=== PATIENT | female | born 1980 | race Caucasian/White ===

== ENCOUNTER 2018-07-09 21:06 | Emergency (ER) | payer MEDICAID ==
--- NOTE | 2018-07-09 21:37 | EDM.PDOC ---
ED [facility] GENERAL MEDICAL PROBLEM - General Chief Complaint: Skin Complaint Stated Complaint: RASH ALL OVER Time Seen by Provider: 07/09/18 21:32 Source of Information: Reports: Patient History Limitations: Reports: No Limitations - History of Present Illness INITIAL COMMENTS - FREE TEXT/NARRATIVE: This 37 yo female patient reports to the ED with a "rash all over". The patient reports her symptoms started 2 days ago. The patient reports she has been using Benadryl Cream, but her symptoms have not gotten any better. The patient showed a small red spot on her left wrist, right upper chest, left upper chest, and right foot. The area on her right upper chest had excoriation zacarias over the area. The patient denies any changes in body soap, shampoo, laundry soap, dryer sheets or lotions. Duration: Day(s): (2), Constant, Getting Worse Location: Reports: Other (listed in HPI narative ) Quality: Reports: Other Severity: Mild Improves with: Reports: None Worsens with: Reports: None Associated Symptoms: Reports: No Other Symptoms Generalized Pain Score (Numeric/FACES): 9 - Related Data Allergies Allergy/AdvReac Type Severity Reaction Status Date / Time acetaminophen [From [place]] Allergy Hives Verified 07/09/18 21:14 hydrocodone [From [place]] Allergy Hives Verified 07/09/18 21:14 Penicillins Allergy Hives Verified 07/09/18 21:14 ranitidine Allergy Hives Verified 07/09/18 21:14 ibuprofen Allergy Hives Uncoded 07/09/18 21:14 metformin Allergy Hives Uncoded 07/09/18 21:14 Past Medical History Cardiovascular History: Reports: High Cholesterol, Hypertension Musculoskeletal History: Reports: Other (See Below) Other Musculoskeletal History: Tendonitis Neurological History: Reports: Migraines Psychiatric History: Reports: Bipolar, PTSD Endocrine/Metabolic History: Reports: Diabetes, Type II - Past Surgical History GI Surgical History: Reports: Appendectomy Female Surgical History: Reports: Tubal Ligation Musculoskeletal Surgical History: Reports: Carpal Tunnel Other Musculoskeletal Surgeries/Procedures:: bilateral carpal tunnel Social & Family History - Family History Family Medical History: Noncontributory - Tobacco Use Smoking Status *Q: Never Smoker - Caffeine Use Caffeine Use: Reports: Coffee, Soda, Tea - Recreational Drug Use Recreational Drug Use: No ED ROS GENERAL - Review of Systems Review Of Systems: ROS reveals no pertinent complaints other than HPI. ED EXAM, SKIN/RASH Exam: See Below Exam Limited By: No Limitations General Appearance: Alert, WD/WN, Mild Distress, Obese Eye Exam: Bilateral Eye: EOMI, Normal Inspection, PERRL Ears: Normal External Exam, Normal Canal, Hearing Grossly Normal, Normal TMs Nose: Normal Inspection, Normal Mucosa, No Blood Throat/Mouth: Normal Inspection, Normal Lips, Normal Teeth, Normal Gums, Normal Oropharynx, Normal Voice, No Airway Compromise Head: Atraumatic, Normocephalic Neck: Normal Inspection, Supple, Non-Tender, Full Range of Motion Respiratory/Chest: No Respiratory Distress, Lungs Clear, Normal Breath Sounds, No Accessory Muscle Use, Chest Non-Tender Cardiovascular: Normal Peripheral Pulses, Regular Rate, Rhythm, No Edema, No Gallop, No JVD, No Murmur, No Rub GI/Abdominal: Normal Bowel Sounds, Soft, Non-Tender, No Organomegaly, No Distention, No Abnormal Bruit, No Mass, Other (obese) (Female) Exam: Deferred Rectal (Female) Exam: Deferred Back Exam: Normal Inspection, Full Range of Motion, NT Extremities: Normal Inspection, Normal Range of Motion, Non-Tender, No Pedal Edema, Normal Capillary Refill Neurological: Alert, Oriented, CN II-XII Intact, Normal Cognition, Normal Gait, Normal Reflexes, No Motor/Sensory Deficits Psychiatric: Normal Affect, Normal Mood Skin: Erythema (small erythematous areas with excoriations to the right upper chest) Location, Skin: Chest, Upper Extremity, Left, Lower Extremity, Right, Lower Extremity, Left Characteristics: Erythematous Associated features: No: Warmth, Tenderness, Swelling, Induration, Scaling, Lymphangitis, Crusting, Weeping, Rough Lymphatic: No Adenopathy Course - Vital Signs Last Recorded V/S: Last Vital Signs Temp 35.6 C 07/09/18 21:08 Pulse 106 H 07/09/18 21:08 Resp 18 07/09/18 21:08 BP 140/99 H 07/09/18 21:08 Pulse Ox 98 07/09/18 21:08 Departure - Departure Time of Disposition: 21:37 Disposition: Home, Self-Care 01 Condition: Fair Clinical Impression: Contact dermatitis Qualifiers: Contact dermatitis type: unspecified Contact dermatitis trigger: unspecified trigger Qualified Code(s): L25.9 - Unspecified contact dermatitis, unspecified cause - Discharge Information *PRESCRIPTION DRUG MONITORING PROGRAM REVIEWED*: Not Applicable *COPY OF PRESCRIPTION DRUG MONITORING REPORT IN PATIENT JUSTIN: Not Applicable Instructions: Contact Dermatitis, Krij-ed-[id number] Care Plan Goals: The patient was advised of the examination results during the visit. The patient was advised to take Benadryl (25 mg) every 6 hours over the next 48 hours. The patient was encouraged to apply Aquaphor Ointment to the areas and avoid scratching the areas. If the patient has any additional symptoms or concerns, the patient should visit her primary care facility for continued evaluation and treatment.
== END 2018-07-09 21:44 | disposition home or self-care (01) ==
LOC: DL.ED 21:06
DX: L25.9 Unspecified contact dermatitis, unspecified cause (principal); E11.9 Type 2 diabetes mellitus without complications; I10 Essential (primary) hypertension; Z88.0 Allergy status to penicillin; Z88.5 Allergy status to narcotic agent; Z88.8 Allergy status to other drugs, medicaments and biological substances; Z88.6 Allergy status to analgesic agent
CPT/HCPCS: 99282

== ENCOUNTER 2018-07-16 20:27 | Emergency (ER) | payer MEDICAID ==
[2018-07-16] MEDS ORDERED: Azithromycin 250 MG Tab PO ONE (20:49)
--- NOTE | 2018-07-16 20:50 | EDM.PDOC ---
ED HPI GENERAL MEDICAL PROBLEM - General Chief Complaint: Skin Complaint Stated Complaint: BED BUG BITES ? [id number] Time Seen by Provider: 07/16/18 20:50 Source of Information: Reports: Patient History Limitations: Reports: No Limitations - History of Present Illness INITIAL COMMENTS - FREE TEXT/NARRATIVE: started lat week was last week for this, was taking benadryl 4 times daily but to twice and itching worse now and looks infected. - Related Data Allergies Allergy/AdvReac Type Severity Reaction Status Date / Time acetaminophen [From [place]] Allergy Hives Verified 07/16/18 20:52 hydrocodone [From [place]] Allergy Hives Verified 07/16/18 20:52 Penicillins Allergy Hives Verified 07/16/18 20:52 ranitidine Allergy Hives Verified 07/16/18 20:52 ibuprofen Allergy Hives Uncoded 07/09/18 21:14 metformin Allergy Hives Uncoded 07/09/18 21:14 Past Medical History Cardiovascular History: Reports: High Cholesterol, Hypertension Musculoskeletal History: Reports: Other (See Below) Other Musculoskeletal History: Tendonitis Neurological History: Reports: Migraines Psychiatric History: Reports: Bipolar, PTSD Endocrine/Metabolic History: Reports: Diabetes, Type II - Past Surgical History GI Surgical History: Reports: Appendectomy Female Surgical History: Reports: Tubal Ligation Musculoskeletal Surgical History: Reports: Carpal Tunnel Other Musculoskeletal Surgeries/Procedures:: bilateral carpal tunnel Social & Family History - Family History Family Medical History: Noncontributory - Caffeine Use Caffeine Use: Reports: Coffee, Soda, Tea ED ROS GENERAL - Review of Systems Review Of Systems: ROS reveals no pertinent complaints other than HPI. ED EXAM, SKIN/RASH Exam: See Below Exam Limited By: No Limitations General Appearance: Alert, WD/WN, Mild Distress, Other (itch) Ears: Hearing Grossly Normal Throat/Mouth: Normal Voice, No Airway Compromise Head: Atraumatic Neck: Non-Tender, Full Range of Motion Respiratory/Chest: No Respiratory Distress Cardiovascular: Regular Rate, Rhythm GI/Abdominal: Soft, Non-Tender Neurological: Alert, Oriented, Normal Cognition, Normal Gait, No Motor/Sensory Deficits Psychiatric: Anxious Skin: Rash Location, Skin: Generalized Characteristics: Macular Associated features: Swelling, Inflammation Lymphatic: No Adenopathy Course - Vital Signs Last Recorded V/S: Last Vital Signs Temp 36.8 C 07/16/18 20:48 Pulse 113 H 07/16/18 20:48 Resp 20 07/16/18 20:48 BP 171/94 H 07/16/18 20:48 Pulse Ox 98 07/16/18 20:48 - Orders/Labs/Meds Meds: Medications Discontinued Medications Generic Name Dose Route Start Last Admin Trade Name [place] PRN Reason Stop Dose Admin Azithromycin 500 mg 07/16/18 20:49 07/16/18 21:00 Zithromax PO 07/16/18 20:50 500 mg ONETIME ONE Administration Departure - Departure Time of Disposition: 21:06 Disposition: Home, Self-Care 01 Condition: Good Clinical Impression: Bug bite Qualifiers: Encounter type: initial encounter Qualified Code(s): W57.XXXA - Bitten or stung by nonvenomous insect and other nonvenomous arthropods, initial encounter - Discharge Information Instructions: Bedbugs, [id number] Forms: ED Department Discharge Additional Instructions: 1) take benadryl 25mg 4 times daily for itch 2) don't scratch too much 3) follow up at clinic rx given; z-la nena
== END 2018-07-16 21:10 | disposition home or self-care (01) ==
LOC: DL.ED 20:27
DX: T14.8XXA Other injury of unspecified body region, initial encounter (principal); E78.00 Pure hypercholesterolemia, unspecified; I10 Essential (primary) hypertension; E11.9 Type 2 diabetes mellitus without complications; Z88.0 Allergy status to penicillin; W57.XXXA Bitten or stung by nonvenomous insect and other nonvenomous arthropods, initial encounter; Z88.5 Allergy status to narcotic agent; Z88.1 Allergy status to other antibiotic agents; Z88.8 Allergy status to other drugs, medicaments and biological substances
CPT/HCPCS: 99282; A9270

== ENCOUNTER 2018-07-23 23:07 | Emergency (ER) | payer MEDICAID ==
--- NOTE | 2018-07-23 23:38 | EDM.PDOC ---
ED HPI GENERAL MEDICAL PROBLEM - General Chief Complaint: Genitourinary Problem Stated Complaint: YEAST INFECTIONS,UTI?[id number] Time Seen by Provider: 07/23/18 23:36 Source of Information: Reports: Patient History Limitations: Reports: No Limitations - History of Present Illness INITIAL COMMENTS - FREE TEXT/NARRATIVE: 4 days h/o burning urination worse tonight can't sleep. h/o UTI. no discharge just burning. Vaginal Pain Score (Numeric/FACES): 10 - Related Data Allergies Allergy/AdvReac Type Severity Reaction Status Date / Time acetaminophen [From [place]] Allergy Hives Verified 07/23/18 23:34 hydrocodone [From [place]] Allergy Hives Verified 07/23/18 23:34 Penicillins Allergy Hives Verified 07/23/18 23:34 ranitidine Allergy Hives Verified 07/23/18 23:34 ibuprofen Allergy Hives Uncoded 07/23/18 23:34 metformin Allergy Hives Uncoded 07/23/18 23:34 Past Medical History HEENT History: Reports: None Cardiovascular History: Reports: High Cholesterol, Hypertension Respiratory History: Reports: None Gastrointestinal History: Reports: None Genitourinary History: Reports: None [employer] History: Reports: None Musculoskeletal History: Reports: Other (See Below) Other Musculoskeletal History: Tendonitis Neurological History: Reports: Migraines Psychiatric History: Reports: Bipolar, PTSD Endocrine/Metabolic History: Reports: Diabetes, Type II Hematologic History: Reports: None Immunologic History: Reports: None Oncologic (Cancer) History: Reports: None Dermatologic History: Reports: None - Infectious Disease History Infectious Disease History: Reports: None - Past Surgical History Head Surgeries/Procedures: Reports: None GI Surgical History: Reports: Appendectomy Female Surgical History: Reports: Tubal Ligation Musculoskeletal Surgical History: Reports: Carpal Tunnel Other Musculoskeletal Surgeries/Procedures:: bilateral carpal tunnel Social & Family History - Family History Family Medical History: Noncontributory - Caffeine Use Caffeine Use: Reports: Coffee, Soda, Tea ED ROS GENERAL - Review of Systems Review Of Systems: ROS reveals no pertinent complaints other than HPI. ED EXAM, RENAL/ - Physical Exam Exam: See Below Exam Limited By: No Limitations General Appearance: Alert, WD/WN, Mild Distress, Other (discomfort) Ears: Hearing Grossly Normal Throat/Mouth: Normal Voice, No Airway Compromise Head: Atraumatic Neck: Non-Tender, Full Range of Motion Respiratory/Chest: No Respiratory Distress Cardiovascular: Regular Rate, Rhythm GI/Abdominal: Soft, Non-Tender Neurological: Alert, Oriented, Normal Cognition, Normal Gait, No Motor/Sensory Deficits Psychiatric: Tearful Skin Exam: Warm, Dry, Normal Color Lymphatic: No Adenopathy Course - Vital Signs Last Recorded V/S: Last Vital Signs Temp 36.7 C 07/23/18 23:35 Pulse 108 H 07/23/18 23:35 Resp 22 H 07/23/18 23:35 BP 128/60 07/23/18 23:35 Pulse Ox 95 07/23/18 23:35 - Orders/Labs/Meds Labs: Laboratory Tests 07/23/18 Range/Units 23:33 Urine Color Yellow (YELLOW) Urine Appearance Slightly cloudy (CLEAR) Urine pH 6.0 (5.0-9.0) Ur Specific [place] >= 1.030 (1.005-1.030) Urine Protein 30 H (NEGATIVE) Urine Glucose (UA) >=1000 H (NEGATIVE) Urine Ketones 15 H (NEGATIVE) Urine Occult Blood Trace-intact H (NEGATIVE) Urine Nitrite Negative (NEGATIVE) Urine Bilirubin Negative (NEGATIVE) Urine Urobilinogen 1.0 (0.2-1.0) mg/dL Ur Leukocyte Esterase Negative (NEGATIVE) Urine RBC 0-5 /HPF Urine WBC 5-10 H (0-5/HPF) /HPF Ur Epithelial Cells Moderate H /HPF Urine Bacteria Moderate H (0-FEW/HPF) /HPF Meds: Medications Discontinued Medications Generic Name Dose Route Start Last Admin Trade Name Freq PRN Reason Stop Dose Admin Nitrofurantoin Macrocrystals 100 mg 07/23/18 23:55 Macrobid PO 07/23/18 23:56 ONETIME ONE Phenazopyridine HCl 95 mg 07/23/18 23:55 Urinary Pain Relief PO 07/23/18 23:56 ONETIME ONE - Re-Assessments/Exams Free Text/Narrative Re-Assessment/Exam: 07/23/18 23:57 results discussed with pt. Departure - Departure Time of Disposition: 23:57 Disposition: Home, Self-Care 01 Condition: Good Clinical Impression: UTI, Urinary tract infectious disease - Discharge Information Instructions: Urinary Tract Infection, Adult, [id number] Forms: ED Department Discharge Additional Instructions: 1) drink lots of liquids 2) follow up at clinic rx given; macrobid 100mg bid x 20 pyridium 100mg tid prn x 12
[2018-07-23] MEDS ORDERED: Phenazopyridine 95 MG Tab PO ONE (23:55)
[2018-07-23] MEDS ORDERED: Nitrofurantoin Monohydrate/Macrocrystalline 100 MG Cap PO ONE (23:55)
== END 2018-07-24 | disposition home or self-care (01) ==
LOC: DL.ED 23:07
DX: N39.0 Urinary tract infection, site not specified (principal); I10 Essential (primary) hypertension; E11.9 Type 2 diabetes mellitus without complications; Z88.8 Allergy status to other drugs, medicaments and biological substances; Z88.0 Allergy status to penicillin
CPT/HCPCS: 81001; 99283; A9270

== ENCOUNTER 2018-11-27 23:39 | Emergency (ER) | payer MEDICAID ==
[2018-11-28 00:29] LABS: ANION GAP 11.8; CHLORIDE,CL 102 mmol/L (101-111); SODIUM,NA 138 mmol/L (135-145)
[2018-11-28] MEDS ORDERED: Ondansetron 4 MG Tab.DIS PO ONE (00:42)
--- NOTE | 2018-11-28 00:46 | EDM.PDOC ---
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 feels sick and not well. Abdominal Pain Score (Numeric/FACES): 9 - Related Data Allergies Allergy/AdvReac Type Severity Reaction Status Date / Time acetaminophen [From [place]] Allergy Hives Verified 11/28/18 00:01 hydrocodone [From [place]] Allergy Hives Verified 11/28/18 00:01 ibuprofen Allergy Rash Verified 11/28/18 00:01 Penicillins Allergy Hives Verified 11/28/18 00:01 ranitidine Allergy Hives Verified 11/28/18 00:01 Sulfa (Sulfonamide Allergy Rash Verified 11/28/18 00:01 Antibiotics) metformin Allergy Hives Uncoded 11/28/18 00:01 Home Meds: Home Meds Insulin Aspart [NovoLOG] See Protocol SUBCUT TIDMEALS 10/30/18 [History] Insulin Glarg,Human.Rec.Analog [Lantus] 65 unit SUBCUT BEDTIME 10/30/18 [History ] Albuterol Sulfate 2.5 mg IH 11/28/18 [History] Albuterol [Proventil HFA] 11/28/18 [History] Cetirizine [ZyrTEC] 11/28/18 [History] Cyanocobalamin (Vitamin B-12) [Vitamin B-12] 1,000 mcg PO 11/28/18 [History] Desmopressin 0.2 mg PO 11/28/18 [History] Diclofenac Sodium [Voltaren 1% Gel] 11/28/18 [History] Doxylamine Succinate [Sleep Aid] 25 mg PO 11/28/18 [History] EPINEPHrine [Epipen] 0.3 mg IM ASDIRECTED PRN 11/28/18 [History] Fluticasone Propion/Salmeterol [Fluticasone-Salmeterol 250-50] 1 each IH [History] Fluticasone Propionate [Flonase] 16 gm .XX 11/28/18 [History] Lisinopril 40 mg PO DAILY 11/28/18 [History] Loratadine [Claritin] 10 mg PO 11/28/18 [History] Melatonin 5 mg PO 11/28/18 [History] Meloxicam 7.5 mg PO 11/28/18 [History] Multivit &Minerals/Ferrous Fum [Complete Multivit-Mineral Liq] 9 mg PO 11/28/18 [History] Omeprazole 20 mg PO 11/28/18 [History] Ondansetron [Zofran ODT] 4 mg PO 11/28/18 [History] Orphenadrine [Norflex] 100 mg PO BID PRN 11/28/18 [History] Prazosin HCl [Prazosin] 2 mg PO 11/28/18 [History] QUEtiapine [SEROquel] 50 mg PO 11/28/18 [History] QUEtiapine [SEROquel] 100 mg PO 11/28/18 [History] SUMAtriptan [Imitrex] 50 mg PO 11/28/18 [History] Sennosides/Docusate Sodium [Senna Plus Tablet] 1 each PO 11/28/18 [History] Solifenacin Succinate [Vesicare] 10 mg PO 11/28/18 [History] Topiramate 50 mg PO 11/28/18 [History] Urojet 2% Jelly 11/28/18 [History] Vitamin D3 80074 Units Capsule 11/28/18 [History] amLODIPine Besylate [Amlodipine Besylate] 10 mg PO 11/28/18 [History] atorvaSTATin [Lipitor] 11/28/18 [History] hydrOXYzine HCl [Hydroxyzine HCl] 25 mg PO 11/28/18 [History] Past Medical History HEENT History: Reports: None Cardiovascular History: Reports: High Cholesterol, Hypertension Respiratory History: Reports: None Gastrointestinal History: Reports: None Genitourinary History: Reports: None, UTI, Recurrent [employer]ILRO[employer]ER History: Reports: None Musculoskeletal History: Reports: Other (See Below) Other Musculoskeletal History: Tendonitis Neurological History: Reports: Migraines Psychiatric History: Reports: Anxiety, Bipolar, Depression, PTSD Other Psychiatric History: pt unable to remember medications Endocrine/Metabolic History: Reports: Diabetes, Type II, Obesity/BMI 30+ Hematologic History: Reports: None Immunologic History: Reports: None Oncologic (Cancer) History: Reports: None Dermatologic History: Reports: None - Infectious Disease History Infectious Disease History: Reports: None - Past Surgical History Head Surgeries/Procedures: Reports: None GI Surgical History: Reports: Appendectomy Neurological Surgical History: Reports: None Musculoskeletal Surgical History: Reports: Carpal Tunnel Other Musculoskeletal Surgeries/Procedures:: bilateral carpal tunnel Social & Family History - Family History Family Medical History: Noncontributory - Tobacco Use Smoking Status *Q: Unknown Ever Smoked - Caffeine Use Caffeine Use: Reports: Tea - Recreational Drug Use Recreational Drug Use: No ED ROS GENERAL - Review of Systems Review Of Systems: ROS reveals no pertinent complaints other than HPI. ED EXAM, GI/ABD - Physical Exam Exam: See Below Exam Limited By: No Limitations General Appearance: Alert, WD/WN, No Apparent Distress, Anxious. No: Active Emesis Ears: Hearing Grossly Normal Throat/Mouth: Normal Voice, No Airway Compromise Head: Atraumatic Neck: Non-Tender, Full Range of Motion Respiratory/Chest: No Respiratory Distress Cardiovascular: Regular Rate, Rhythm GI/Abdominal Exam: Soft, Non-Tender. No: Distended, Guarding, Rigid, Rebound, Tender Neurological: Alert, Oriented, Normal Cognition, Normal Gait, No Motor/Sensory Deficits Psychiatric: Flat Affect Skin Exam: Warm, Dry, Normal Color Lymphatic: No Adenopathy Course - Vital Signs Last Recorded V/S: Last Vital Signs Temp 36.4 C 11/27/18 23:57 Pulse 98 11/27/18 23:57 Resp 20 11/27/18 23:57 BP 149/104 H 11/27/18 23:57 Pulse Ox 97 11/27/18 23:57 - Orders/Labs/Meds Orders: Active Orders 24 hr Category Date Time Status Ondansetron [Zofran ODT] Med 11/28/18 00:42 Once 4 mg PO ONETIME ONE Labs: Laboratory Tests 11/27/18 11/27/18 Range/Units 23:58 23:58 WBC 10.2 H (5.0-10.0) 10^3/uL RBC 4.70 (4.2-5.4) 10^6/uL Hgb 13.4 (12.0-16.0) g/dL Hct 40.2 (37.0-47.0) % MCV 85.5 (80-100) fL MCH 28.5 (27.0-34.0) pg MCHC 33.3 (33.0-35.0) g/dL Plt Count 289 (150-450) 10^3/uL Neut % (Auto) 52.8 (42.2-75.2) % Lymph % (Auto) 37.4 (20.5-50.1) % [place] % (Auto) 6.9 (2-8) % Eos % (Auto) 2.4 (1.0-3.0) % Baso % (Auto) 0.5 (0.0-1.0) % Sodium 138 (135-145) mmol/L Potassium 3.8 (3.6-5.0) mmol/L Chloride 102 (101-111) mmol/L Carbon Dioxide 28.0 (21.0-31.0) mmol/L Anion Gap 11.8 BUN 15 (7-18) mg/dL Creatinine 0.7 (0.6-1.3) mg/dL Est Cr Clr Drug Dosing 83.84 mL/min Estimated GFR (MDRD) > 60 BUN/Creatinine Ratio 21.42 Glucose 230 H (74-105) mg/dL Calcium 8.8 (8.4-10.2) mg/dl Total Bilirubin 0.6 (0.2-1.0) mg/dL AST 33 (10-42) IU/L ALT 44 (10-60) IU/L Alkaline Phosphatase 57 (42-121) IU/L Total Protein 6.7 (6.7-8.2) g/dl Albumin 3.5 (3.2-5.5) g/dl Globulin 3.2 Albumin/Globulin Ratio 1.09 Amylase 30 (28-100) U/L Lipase 25 (22-51) U/L Ethyl Alcohol < 5 mg/dL - Re-Assessments/Exams Free Text/Narrative Re-Assessment/Exam: 11/28/18 00:44 results discussed with pt who is txting and without distress. Departure - Departure Time of Disposition: 00:44 Disposition: Home, Self-Care 01 Condition: Good Clinical Impression: Vomiting - Discharge Information Instructions: Nausea and Vomiting, Adult, [id number] Additional Instructions: 1) remain on liquid diet next 48 hours 2) follow up at clinic - My Orders Last 24 Hours: My Active Orders 11/28/18 00:42 Ondansetron [Zofran ODT] 4 mg PO ONETIME ONE - Assessment/Plan Last 24 Hours: My Active Orders 11/28/18 00:42 Ondansetron [Zofran ODT] 4 mg PO ONETIME ONE
== END 2018-11-28 00:56 | disposition home or self-care (01) ==
LOC: DL.ED 23:39
DX: R11.2 Nausea with vomiting, unspecified (principal); Z88.0 Allergy status to penicillin; Z88.2 Allergy status to sulfonamides; Z88.8 Allergy status to other drugs, medicaments and biological substances; Z88.5 Allergy status to narcotic agent; Z79.4 Long term (current) use of insulin; Z90.49 Acquired absence of other specified parts of digestive tract
CPT/HCPCS: 36415; 80053; 82150; 83690; 85025; 99284; A9270; G0480

== ENCOUNTER 2019-04-05 01:35 | Emergency (ER) | payer MEDICAID ==
[2019-04-05] MEDS ORDERED: Mupirocin Oint 22 GM Tube TOP ONE (01:36)
--- NOTE | 2019-04-05 01:42 | EDM.PDOC ---
ED HPI GENERAL MEDICAL PROBLEM - General Stated Complaint: PROBLEM WITH BREAST Time Seen by Provider: 04/05/19 01:39 Source of Information: Reports: Patient History Limitations: Reports: No Limitations - History of Present Illness INITIAL COMMENTS - FREE TEXT/NARRATIVE: ED with c/o sores all over breast for past 3 weeks, seen at clinic and given "cream, Does not know what it is but not helping. Has run out of " cream to use. 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 C/O pain but describes more itching sensation to area. no fever or chills. Right Breast Pain Score (Numeric/FACES): 9 - Related Data Allergies Allergy/AdvReac Type Severity Reaction Status Date / Time acetaminophen [From [place]] Allergy Hives Verified 04/05/19 01:40 escitalopram [From Lexapro] Allergy Rash Verified 04/05/19 01:40 fluoxetine [From Prozac] Allergy Rash Verified 04/05/19 01:40 hydrocodone [From [place]] Allergy Hives Verified 04/05/19 01:40 ibuprofen Allergy Rash Verified 04/05/19 01:40 Penicillins Allergy Hives Verified 04/05/19 01:40 ranitidine Allergy Hives Verified 04/05/19 01:40 Sulfa (Sulfonamide Allergy Rash Verified 04/05/19 01:40 Antibiotics) zolpidem [From Ambien] AdvReac Nausea and Verified 04/05/19 01:40 Vomiting BEE STING Allergy Anaphylactic Uncoded 04/05/19 01:40 Shock metformin Allergy Hives Uncoded 04/05/19 01:40 Home Meds: Home Meds Insulin Aspart [NovoLOG] See Protocol SUBCUT TIDMEALS 10/30/18 [History] Insulin Glarg,Human.Rec.Analog [Lantus] 68 unit SUBCUT BEDTIME 10/30/18 [History ] Albuterol Sulfate 2.5 mg IH Q4H PRN 11/28/18 [History] Albuterol [Proventil HFA] 2 puff INH Q4H PRN 11/28/18 [History] Cetirizine [ZyrTEC] 10 mg PO DAILY 11/28/18 [History] Cyanocobalamin (Vitamin B-12) [Vitamin B-12] 1,000 mcg PO .WEEKLY 11/28/18 [ History] EPINEPHrine [Epipen] 0.3 mg IM ASDIRECTED PRN 11/28/18 [History] Fluticasone Propion/Salmeterol [Fluticasone-Salmeterol 250-50] 1 each IH DAILY 11/28/18 [History] Fluticasone Propionate [Flonase] 1 - 2 spray NASBOTH ASDIRECTED 11/28/18 [ History] Lisinopril 40 mg PO DAILY 11/28/18 [History] Omeprazole 20 mg PO DAILY 11/28/18 [History] Ondansetron [Zofran ODT] 4 mg PO Q8H PRN 11/28/18 [History] Orphenadrine [Norflex] 100 mg PO BID PRN 11/28/18 [History] Prazosin HCl [Prazosin] 2 mg PO BEDTIME 11/28/18 [History] QUEtiapine [SEROquel] 50 mg PO DAILY 11/28/18 [History] QUEtiapine [SEROquel] 150 mg PO BEDTIME 11/28/18 [History] Sennosides/Docusate Sodium [Senna Plus Tablet] 1 each PO DAILY 11/28/18 [History ] Solifenacin Succinate [Vesicare] 10 mg PO DAILY 11/28/18 [History] Topiramate 50 mg PO BID 11/28/18 [History] Vitamin D3 97833 Units Capsule 50,000 units PO DAILY 11/28/18 [History] amLODIPine Besylate [Amlodipine Besylate] 10 mg PO DAILY 11/28/18 [History] atorvaSTATin [Lipitor] 10 mg PO DAILY 11/28/18 [History] Multivitamin with Minerals [Multivitamins with Minerals] 1 tab PO DAILY [History] Cranberry Fruit [Cranberry] 500 mg PO BID 12/07/18 [History] Insulin Aspart [NovoLOG] 0 unit SQ ASDIRECTED 01/18/19 [History] Insulin Glarg,Human.Rec.Analog [Lantus] 68 unit SUBCUT ASDIRECTED 01/18/19 [ History] Prazosin [Minpress] 0 mg PO ASDIRECTED 01/18/19 [History] QUEtiapine [SEROquel] 0 mg PO ASDIRECTED 01/18/19 [History] Topiramate [Topamax] 50 mg PO BID 01/18/19 [History] lisinopriL [Lisinopril] 0 mg PO ASDIRECTED 01/18/19 [History] Past Medical History - Past Health History Medical/Surgical History: Denies Medical/Surgical History HEENT History: Reports: None Cardiovascular History: Reports: High Cholesterol, Hypertension Respiratory History: Reports: Asthma, None Gastrointestinal History: Reports: None Genitourinary History: Reports: None, UTI, Recurrent INSTRUCTIONAL MATERIAL DIRECTOR History: Reports: None, Other (See Below), Other INSTRUCTIONAL MATERIAL DIRECTOR History: tubal ligation Musculoskeletal History: Reports: None, Other (See Below) Other Musculoskeletal History: Tendonitis Neurological History: Reports: Migraines Psychiatric History: Reports: Anxiety, Bipolar, Depression, PTSD Other Psychiatric History: pt unable to remember medications Endocrine/Metabolic History: Reports: Diabetes, Type I, Diabetes, Type II, Obesity/BMI 30+ Hematologic History: Reports: None Immunologic History: Reports: None Oncologic (Cancer) History: Reports: None Dermatologic History: Reports: None - Infectious Disease History Infectious Disease History: Reports: None - Past Surgical History GI Surgical History: Reports: Appendectomy, None Social & Family History - Family History Family Medical History: Noncontributory - Caffeine Use Caffeine Use: Reports: Coffee, Soda, Tea Other Caffeine Use: AVERAGE OF 12 OZ TEA DURING THE DAY ED ROS GENERAL - Review of Systems Review Of Systems: Comprehensive ROS is negative, except as noted in HPI. Constitutional: Denies: Fever ED EXAM, GENERAL - Physical Exam Exam: See Below Exam Limited By: No Limitations General Appearance: Alert, Anxious Eye Exam: Bilateral Eye: EOMI Ears: Normal External Exam, Hearing Grossly Normal Nose: Normal Mucosa Throat/Mouth: Normal Voice Neck: Normal Inspection Respiratory/Chest: No Respiratory Distress, Lungs Clear, Normal Breath Sounds Cardiovascular: Regular Rate, Rhythm GI/Abdominal: Soft, Non-Tender Extremities: Normal Inspection Neurological: Alert, Oriented Psychiatric: Anxious Skin Exam: Warm, Dry, Wound/Incision (2x1.5cm shallowl abscess wound crusted dried surface minimal erythema to base, multiple old healed scarred lesions to breast. Minimal tenderness to breast. ) Course - Vital Signs Last Recorded V/S: Last Vital Signs Temp 97 F 04/05/19 01:38 Pulse 99 04/05/19 01:38 Resp 20 04/05/19 01:38 BP 154/77 H 04/05/19 01:38 Pulse Ox 100 04/05/19 01:38 - Orders/Labs/Meds Orders: Active Orders 24 hr Category Date Time Status Glucose [Blood Glucose Check, Bedside] [RC] ONETIME Care 04/05/19 01:47 Active Labs: Laboratory Tests 04/05/19 Range/Units 01:50 POC Glucose 194 H (70-105) mg/dl Meds: Medications Discontinued Medications Generic Name Dose Route Start Last Admin Trade Name Duane MCGILL Reason Stop Dose Admin Doxycycline Hyclate 100 mg 04/05/19 01:52 04/05/19 01:57 Vibramycin PO 04/05/19 01:53 100 mg ONETIME ONE Administration Mupirocin Confirm 04/05/19 01:55 04/05/19 01:59 Bactroban Oint Administered 04/05/19 01:56 Not Given Dose 22 gm .ROUTE .STK-MED ONE Departure - Departure Time of Disposition: 01:54 Disposition: Home, Self-Care 01 Condition: Good Clinical Impression: Abscess - Discharge Information *PRESCRIPTION DRUG MONITORING PROGRAM REVIEWED*: No *COPY OF PRESCRIPTION DRUG MONITORING REPORT IN PATIENT JUSTIN: No Instructions: Skin Abscess, [id number] Forms: ED Department Discharge Additional Instructions: mupirocin 3 times daily to affected area on breast doxycycline 100mg one twice daily for 10 days clinic recheck next week wash area daily with soap and water pat dry Sepsis Event Note - Focused Exam Vital Signs: Vital Signs Temp Pulse Resp BP Pulse Ox 04/05/19 01:38 97 F 99 20 154/77 H 100 Date Exam was Performed: 04/05/19 Time Exam was Performed: 04:29 - My Orders Last 24 Hours: My Active Orders 04/05/19 01:47 Glucose [Blood Glucose Check, Bedside] [RC] ONETIME - Assessment/Plan Last 24 Hours: My Active Orders 04/05/19 01:47 Glucose [Blood Glucose Check, Bedside] [RC] ONETIME
[2019-04-05] MEDS ORDERED: Doxycycline 100 MG Cap PO ONE (01:52)
[2019-04-05] MEDS ORDERED: Mupirocin Oint 22 GM Tube ONE (01:55)
== END 2019-04-05 02:00 | disposition home or self-care (01) ==
LOC: DL.ED 01:35
DX: N61.1 Abscess of the breast and nipple (principal); I10 Essential (primary) hypertension; J45.909 Unspecified asthma, uncomplicated; Z79.899 Other long term (current) drug therapy; E66.9 Obesity, unspecified; E13.9 Other specified diabetes mellitus without complications; Z90.49 Acquired absence of other specified parts of digestive tract; Z88.0 Allergy status to penicillin; Z88.2 Allergy status to sulfonamides; Z88.6 Allergy status to analgesic agent; Z88.8 Allergy status to other drugs, medicaments and biological substances
CPT/HCPCS: 82962; 99283; A9270

== ENCOUNTER 2019-04-12 18:33 | Emergency (ER) | payer MEDICAID ==
[2019-04-12] MEDS ORDERED: Sodium Chloride 0.9% 1,000 ML IV ONE (19:08)
--- NOTE | 2019-04-12 19:18 | EDM.PDOC ---
ED HPI GENERAL MEDICAL PROBLEM - General Chief Complaint: Abdominal Pain Stated Complaint: MIGRAINE, CANT PEE Time Seen by Provider: 04/12/19 19:05 Source of Information: Reports: Patient History Limitations: Reports: No Limitations - History of Present Illness INITIAL COMMENTS - FREE TEXT/NARRATIVE: This 38 yo female patient reports to the ED due to not feeling well since Thursday. The patient reports she has had nausea and vomiting since the onset of her symptoms. The patient reports she has not been seen in the clinic for her current symptoms. The patient reports she has not been able to urinate since Thursday. The patient reports she did take Tylenol this morning at 0800, but has not taken anything since that time. The patient reports she has not been able to keep any food or drinks down. Onset Date: 04/09/19 Duration: Constant, Getting Worse Location: Reports: Generalized Quality: Reports: Other Severity: Severe Improves with: Reports: None Worsens with: Reports: None Context: Reports: Other Associated Symptoms: Reports: Fever/Chills, Nausea/Vomiting, Other (body aches) Treatments SWATCH CUTTER: Reports: Acetaminophen (AT 0800 today.) Generalized Pain Score (Numeric/FACES): 10 - Related Data Allergies Allergy/AdvReac Type Severity Reaction Status Date / Time acetaminophen [From [place]] Allergy Hives Verified 04/12/19 19:05 escitalopram [From Lexapro] Allergy Rash Verified 04/12/19 19:05 fluoxetine [From Prozac] Allergy Rash Verified 04/12/19 19:05 hydrocodone [From [place]] Allergy Hives Verified 04/12/19 19:05 ibuprofen Allergy Rash Verified 04/12/19 19:05 Penicillins Allergy Hives Verified 04/12/19 19:05 ranitidine Allergy Hives Verified 04/12/19 19:05 Sulfa (Sulfonamide Allergy Rash Verified 04/12/19 19:05 Antibiotics) zolpidem [From Ambien] AdvReac Nausea and Verified 04/12/19 19:05 Vomiting BEE STING Allergy Anaphylactic Uncoded 04/12/19 19:05 Shock metformin Allergy Hives Uncoded 04/12/19 19:05 Home Meds: Home Meds Insulin Aspart [NovoLOG] See Protocol SUBCUT TIDMEALS 10/30/18 [History] Insulin Glarg,Human.Rec.Analog [Lantus] 68 unit SUBCUT BEDTIME 10/30/18 [History ] Albuterol Sulfate 2.5 mg IH Q4H PRN 11/28/18 [History] Albuterol [Proventil HFA] 2 puff INH Q4H PRN 11/28/18 [History] Cetirizine [ZyrTEC] 10 mg PO DAILY 11/28/18 [History] Cyanocobalamin (Vitamin B-12) [Vitamin B-12] 1,000 mcg PO .WEEKLY 11/28/18 [ History] EPINEPHrine [Epipen] 0.3 mg IM ASDIRECTED PRN 11/28/18 [History] Fluticasone Propion/Salmeterol [Fluticasone-Salmeterol 250-50] 1 each IH DAILY 11/28/18 [History] Fluticasone Propionate [Flonase] 1 - 2 spray NASBOTH ASDIRECTED 11/28/18 [ History] Lisinopril 40 mg PO DAILY 11/28/18 [History] Omeprazole 20 mg PO DAILY 11/28/18 [History] Ondansetron [Zofran ODT] 4 mg PO Q8H PRN 11/28/18 [History] Orphenadrine [Norflex] 100 mg PO BID PRN 11/28/18 [History] Prazosin HCl [Prazosin] 2 mg PO BEDTIME 11/28/18 [History] QUEtiapine [SEROquel] 50 mg PO DAILY 11/28/18 [History] QUEtiapine [SEROquel] 150 mg PO BEDTIME 11/28/18 [History] Sennosides/Docusate Sodium [Senna Plus Tablet] 1 each PO DAILY 11/28/18 [History ] Solifenacin Succinate [Vesicare] 10 mg PO DAILY 11/28/18 [History] Topiramate 50 mg PO BID 11/28/18 [History] Vitamin D3 19044 Units Capsule 50,000 units PO DAILY 11/28/18 [History] amLODIPine Besylate [Amlodipine Besylate] 10 mg PO DAILY 11/28/18 [History] atorvaSTATin [Lipitor] 10 mg PO DAILY 11/28/18 [History] Multivitamin with Minerals [Multivitamins with Minerals] 1 tab PO DAILY [History] Cranberry Fruit [Cranberry] 500 mg PO BID 12/07/18 [History] Insulin Aspart [NovoLOG] 0 unit SQ ASDIRECTED 01/18/19 [History] Insulin Glarg,Human.Rec.Analog [Lantus] 68 unit SUBCUT ASDIRECTED 01/18/19 [ History] Prazosin [Minpress] 0 mg PO ASDIRECTED 01/18/19 [History] QUEtiapine [SEROquel] 0 mg PO ASDIRECTED 01/18/19 [History] Topiramate [Topamax] 50 mg PO BID 01/18/19 [History] lisinopriL [Lisinopril] 0 mg PO ASDIRECTED 01/18/19 [History] Past Medical History - Past Health History Medical/Surgical History: Denies Medical/Surgical History HEENT History: Reports: None Cardiovascular History: Reports: High Cholesterol, Hypertension Respiratory History: Reports: Asthma Gastrointestinal History: Reports: None, Bowel Obstruction Genitourinary History: Reports: None PEDIATRIC GENETIC COUNSELOR History: Reports: None, Other (See Below) Other PEDIATRIC GENETIC COUNSELOR History: tubal ligation Musculoskeletal History: Reports: Other (See Below) Other Musculoskeletal History: Tendonitis Neurological History: Reports: Migraines Psychiatric History: Reports: Anxiety, Bipolar, Depression, PTSD Other Psychiatric History: pt unable to remember medications Endocrine/Metabolic History: Reports: Diabetes, Type II, Obesity/BMI 30+ Hematologic History: Reports: None Immunologic History: Reports: None Oncologic (Cancer) History: Reports: None Dermatologic History: Reports: None - Infectious Disease History Infectious Disease History: Reports: None - Past Surgical History Head Surgeries/Procedures: Reports: None GI Surgical History: Reports: Appendectomy Social & Family History - Family History Family Medical History: Noncontributory - Tobacco Use Smoking Status *Q: Never Smoker - Caffeine Use Caffeine Use: Reports: None Other Caffeine Use: AVERAGE OF 12 OZ TEA DURING THE DAY - Recreational Drug Use Recreational Drug Use: No ED ROS GENERAL - Review of Systems Review Of Systems: Comprehensive ROS is negative, except as noted in HPI. ED EXAM, GI/ABD - Physical Exam Exam: See Below Exam Limited By: No Limitations General Appearance: Alert, WD/WN, Moderate Distress, Obese Eyes: Bilateral: Normal Appearance, EOMI Ears: Normal External Exam, Normal Canal, Hearing Grossly Normal, Normal TMs Nose: Normal Inspection, Normal Mucosa, No Blood Throat/Mouth: Normal Inspection, Normal Lips, Normal Teeth, Normal Gums, Normal Oropharynx, Normal Voice, No Airway Compromise Head: Atraumatic, Normocephalic Neck: Normal Inspection, Supple, Non-Tender, Full Range of Motion Respiratory/Chest: No Respiratory Distress, Lungs Clear, Normal Breath Sounds, No Accessory Muscle Use, Chest Non-Tender Cardiovascular: Normal Peripheral Pulses, Regular Rate, Rhythm, No Edema, No Gallop, No JVD, No Murmur, No Rub GI/Abdominal Exam: Normal Bowel Sounds, Soft, Non-Tender, No Organomegaly, No Distention, No Abnormal Bruit, No Mass, Pelvis Stable, Other (obese) (Female) Exam: Deferred Rectal (Female) Exam: Deferred Extremities: Normal Inspection, Normal Range of Motion, Non-Tender, Normal Capillary Refill, No Pedal Edema Neurological: Alert, Oriented, CN II-XII Intact, Normal Cognition Psychiatric: Normal Affect, Normal Mood Skin Exam: Warm, Dry, Intact, Normal Color, No Rash Lymphatic: No Adenopathy Course - Vital Signs Last Recorded V/S: Last Vital Signs Temp 36.7 C 04/12/19 19:07 Pulse 122 H 04/12/19 19:07 Resp 20 04/12/19 19:07 BP 100/58 L 04/12/19 19:07 Pulse Ox 95 04/12/19 19:07 - Orders/Labs/Meds Labs: Laboratory Tests 04/12/19 04/12/19 04/12/19 Range/Units 19:22 19:22 20:52 WBC 7.9 (5.0-10.0) 10^3/uL RBC 4.91 (4.2-5.4) 10^6/uL Hgb 14.2 (12.0-16.0) g/dL Hct 41.8 (37.0-47.0) % MCV 85.1 (80-100) fL MCH 28.9 (27.0-34.0) pg MCHC 34.0 (33.0-35.0) g/dL Plt Count 253 D (150-450) 10^3/uL Neut % (Auto) 68.8 (42.2-75.2) % Lymph % (Auto) 21.8 (20.5-50.1) % [place] % (Auto) 7.6 (2-8) % Eos % (Auto) 1.5 (1.0-3.0) % Baso % (Auto) 0.3 (0.0-1.0) % Sodium 134 L (135-145) mmol/L Potassium 3.9 (3.6-5.0) mmol/L Chloride 103 (101-111) mmol/L Carbon Dioxide 21.0 (21.0-31.0) mmol/L Anion Gap 13.9 BUN 14 (7-18) mg/dL Creatinine 0.7 (0.6-1.3) mg/dL Est Cr Clr Drug Dosing 83.84 mL/min Estimated GFR (MDRD) > 60 BUN/Creatinine Ratio 20.00 Glucose 210 H (74-105) mg/dL Calcium 8.5 (8.4-10.2) mg/dl Total Bilirubin 0.9 (0.2-1.0) mg/dL AST 87 H (10-42) IU/L ALT 69 H (10-60) IU/L Alkaline Phosphatase 59 (42-121) IU/L Total Protein 6.8 (6.7-8.2) g/dl Albumin 3.6 (3.2-5.5) g/dl Globulin 3.2 Albumin/Globulin Ratio 1.13 Urine Color Yellow (YELLOW) Urine Appearance Clear (CLEAR) Urine pH 5.0 (5.0-9.0) Ur Specific [place] 1.025 (1.005-1.030) Urine Protein Negative (NEGATIVE) Urine Glucose (UA) 250 H (NEGATIVE) Urine Ketones Negative (NEGATIVE) Urine Occult Blood Negative (NEGATIVE) Urine Nitrite Negative (NEGATIVE) Urine Bilirubin Negative (NEGATIVE) Urine Urobilinogen 1.0 (0.2-1.0) mg/dL Ur Leukocyte Esterase Negative (NEGATIVE) Meds: Medications Discontinued Medications Generic Name Dose Route Start Last Admin Trade Name Freq PRN Reason Stop Dose Admin Sodium Chloride 1,000 mls @ 999 mls/hr 04/12/19 19:08 04/12/19 19:35 Normal Saline IV 04/12/19 20:08 999 mls/hr .BOLUS ONE Administration Ondansetron HCl 4 mg 04/12/19 20:07 04/12/19 20:12 Zofran IVPUSH 04/12/19 20:08 4 mg ONETIME ONE Administration Departure - Departure Time of Disposition: 21:33 Disposition: Home, Self-Care 01 Condition: Fair Clinical Impression: Gastroenteritis - Discharge Information *PRESCRIPTION DRUG MONITORING PROGRAM REVIEWED*: Not Applicable *COPY OF PRESCRIPTION DRUG MONITORING REPORT IN PATIENT JUSTIN: Not Applicable Instructions: Viral Gastroenteritis, Adult, [id number] Forms: ED Department Discharge Care Plan Goals: The patient was advised of the examination and lab results during the visit. The patient was given IV fluids and IV Zofran while in the ED. The patient was discharged with a script for Zofran (4 mg) #20 to take 1 by mouth every 6 hours as needed for nausea. The patient was encouraged to stick to a BRAT diet ( bananas, rice, applesauce and toast) with small frequent sips of fluid. If the patient has any additional symptoms or concerns, the patient should either return to the emergency department or follow-up with her primary care facility. Sepsis Event Note - Evaluation Sepsis Screening Result: No Definite Risk - Focused Exam Vital Signs: Vital Signs Temp Pulse Resp BP Pulse Ox 04/12/19 19:07 36.7 C 122 H 20 100/58 L 95 Date Exam was Performed: 04/12/19 Time Exam was Performed: 21:33
[2019-04-12 19:49] LABS: ANION GAP 13.9; CHLORIDE,CL 103 mmol/L (101-111); SODIUM,NA 134 mmol/L (135-145)
[2019-04-12] MEDS ORDERED: Ondansetron 4 MG/2 ML SDV IVPUSH ONE (20:07)
== END 2019-04-12 21:40 | disposition home or self-care (01) ==
LOC: DL.ED 18:33
DX: K52.9 Noninfective gastroenteritis and colitis, unspecified (principal); I10 Essential (primary) hypertension; J45.909 Unspecified asthma, uncomplicated; E11.9 Type 2 diabetes mellitus without complications; F41.9 Anxiety disorder, unspecified; F32.9 Major depressive disorder, single episode, unspecified; E66.9 Obesity, unspecified; Z68.42 Body mass index [BMI] 45.0-49.9, adult; Z79.899 Other long term (current) drug therapy; Z90.49 Acquired absence of other specified parts of digestive tract; Z88.0 Allergy status to penicillin; Z88.2 Allergy status to sulfonamides; Z88.8 Allergy status to other drugs, medicaments and biological substances; Z88.5 Allergy status to narcotic agent; Z91.030 Bee allergy status; Z88.6 Allergy status to analgesic agent; Z79.4 Long term (current) use of insulin
CPT/HCPCS: 36415; 80053; 81003; 85025; 87804; 96361; 96374; 99284; J2405; J7030

== ENCOUNTER 2019-04-23 10:21 | Emergency (ER) | payer MEDICAID ==
--- NOTE | 2019-04-23 12:16 | EDM.PDOC ---
ED HPI GENERAL MEDICAL PROBLEM - General Chief Complaint: Upper Extremity Injury/Pain Stated Complaint: fell on ice/arm pain Time Seen by Provider: 04/23/19 11:00 Source of Information: Reports: Patient, Family, RN, RN Notes Reviewed History Limitations: Reports: No Limitations - History of Present Illness INITIAL COMMENTS - FREE TEXT/NARRATIVE: patient presents to ER with complaint of right hand, wrist, arm pain. Patient states she slipped on the ice while walking her dog on Thursday. States she was seen in the clinic but no x-rays done at that time. Patient was given Toradol and lidocaine gel for the pain, and was placed in a brace. Patient states she continues to have pain and swelling. Patient states she is unable to wiggle her fingers. Onset: Sudden Onset Date: 04/20/19 Right Wrist Pain Score (Numeric/FACES): 10 - Related Data Allergies Allergy/AdvReac Type Severity Reaction Status Date / Time acetaminophen [From [place]] Allergy Hives Verified 04/12/19 19:05 escitalopram [From Lexapro] Allergy Rash Verified 04/12/19 19:05 fluoxetine [From Prozac] Allergy Rash Verified 04/12/19 19:05 hydrocodone [From [place]azey] Allergy Hives Verified 04/12/19 19:05 ibuprofen Allergy Rash Verified 04/12/19 19:05 Penicillins Allergy Hives Verified 04/12/19 19:05 ranitidine Allergy Hives Verified 04/12/19 19:05 Sulfa (Sulfonamide Allergy Rash Verified 04/12/19 19:05 Antibiotics) zolpidem [From Ambien] AdvReac Nausea and Verified 04/12/19 19:05 Vomiting BEE STING Allergy Anaphylactic Uncoded 04/12/19 19:05 Shock metformin Allergy Hives Uncoded 04/12/19 19:05 Home Meds: Home Meds Insulin Aspart [NovoLOG] See Protocol SUBCUT TIDMEALS 10/30/18 [History] Insulin Glarg,Human.Rec.Analog [Lantus] 68 unit SUBCUT BEDTIME 10/30/18 [History ] Albuterol Sulfate 2.5 mg IH Q4H PRN 11/28/18 [History] Albuterol [Proventil HFA] 2 puff INH Q4H PRN 11/28/18 [History] Cetirizine [ZyrTEC] 10 mg PO DAILY 11/28/18 [History] Cyanocobalamin (Vitamin B-12) [Vitamin B-12] 1,000 mcg PO .WEEKLY 11/28/18 [ History] EPINEPHrine [Epipen] 0.3 mg IM ASDIRECTED PRN 11/28/18 [History] Fluticasone Propion/Salmeterol [Fluticasone-Salmeterol 250-50] 1 each IH DAILY 11/28/18 [History] Fluticasone Propionate [Flonase] 1 - 2 spray NASBOTH ASDIRECTED 11/28/18 [ History] Lisinopril 40 mg PO DAILY 11/28/18 [History] Omeprazole 20 mg PO DAILY 11/28/18 [History] Ondansetron [Zofran ODT] 4 mg PO Q8H PRN 11/28/18 [History] Orphenadrine [Norflex] 100 mg PO BID PRN 11/28/18 [History] Prazosin HCl [Prazosin] 2 mg PO BEDTIME 11/28/18 [History] QUEtiapine [SEROquel] 50 mg PO DAILY 11/28/18 [History] QUEtiapine [SEROquel] 150 mg PO BEDTIME 11/28/18 [History] Sennosides/Docusate Sodium [Senna Plus Tablet] 1 each PO DAILY 11/28/18 [History ] Solifenacin Succinate [Vesicare] 10 mg PO DAILY 11/28/18 [History] Topiramate 50 mg PO BID 11/28/18 [History] Vitamin D3 72738 Units Capsule 50,000 units PO DAILY 11/28/18 [History] amLODIPine Besylate [Amlodipine Besylate] 10 mg PO DAILY 11/28/18 [History] atorvaSTATin [Lipitor] 10 mg PO DAILY 11/28/18 [History] Multivitamin with Minerals [Multivitamins with Minerals] 1 tab PO DAILY [History] Cranberry Fruit [Cranberry] 500 mg PO BID 12/07/18 [History] Insulin Aspart [NovoLOG] 0 unit SQ ASDIRECTED 01/18/19 [History] Insulin Glarg,Human.Rec.Analog [Lantus] 68 unit SUBCUT ASDIRECTED 01/18/19 [ History] Prazosin [Minpress] 0 mg PO ASDIRECTED 01/18/19 [History] QUEtiapine [SEROquel] 0 mg PO ASDIRECTED 01/18/19 [History] Topiramate [Topamax] 50 mg PO BID 01/18/19 [History] lisinopriL [Lisinopril] 0 mg PO ASDIRECTED 01/18/19 [History] Past Medical History - Past Health History Medical/Surgical History: Denies Medical/Surgical History HEENT History: Reports: None Cardiovascular History: Reports: High Cholesterol, Hypertension Respiratory History: Reports: Asthma Gastrointestinal History: Reports: None, Bowel Obstruction Genitourinary History: Reports: None 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, Other (See Below) 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 SPEECH THERAPY TEACHER History: tubal ligation Musculoskeletal History: Reports: Other (See Below) Other Musculoskeletal History: Tendonitis Neurological History: Reports: Migraines Psychiatric History: Reports: Anxiety, Bipolar, Depression, PTSD Other Psychiatric History: pt unable to remember medications Endocrine/Metabolic History: Reports: Diabetes, Type II, Obesity/BMI 30+ Hematologic History: Reports: None Immunologic History: Reports: None Oncologic (Cancer) History: Reports: None Dermatologic History: Reports: None - Infectious Disease History Infectious Disease History: Reports: None - Past Surgical History Head Surgeries/Procedures: Reports: None GI Surgical History: Reports: Appendectomy Social & Family History - Family History Family Medical History: Noncontributory - Tobacco Use Smoking Status *Q: Never Smoker - Caffeine Use Caffeine Use: Reports: None Other Caffeine Use: AVERAGE OF 12 OZ TEA DURING THE DAY - Recreational Drug Use Recreational Drug Use: No Review of Systems - Review of Systems Review Of Systems: Comprehensive ROS is negative, except as noted in HPI. ED EXAM, GENERAL - Physical Exam Exam: See Below Exam Limited By: No Limitations General Appearance: Alert, WD/WN, Mild Distress Eye Exam: Bilateral Eye: EOMI, Normal Inspection Ears: Normal External Exam, Hearing Grossly Normal Nose: Normal Inspection Throat/Mouth: Normal Inspection, Normal Voice, No Airway Compromise Head: Atraumatic, Normocephalic Neck: Normal Inspection, Supple, Non-Tender, Full Range of Motion Respiratory/Chest: No Respiratory Distress, Lungs Clear, Normal Breath Sounds, No Accessory Muscle Use, Chest Non-Tender Cardiovascular: Normal Peripheral Pulses, Regular Rate, Rhythm, No Edema, No Gallop, No JVD, No Murmur, No Rub Peripheral Pulses: 2+: Radial (L), Radial (R) GI/Abdominal: Normal Bowel Sounds, Soft, Non-Tender (Female) Exam: Deferred Rectal (Female) Exam: Deferred Back Exam: Normal Inspection, Full Range of Motion, NT Extremities: Joint Swelling (right wrist), Arm Pain (right), Limited Range of Motion (wrist) Neurological: Alert, Oriented, CN II-XII Intact, Normal Cognition, Normal Gait, Normal Reflexes, No Motor/Sensory Deficits Psychiatric: Normal Affect, Normal Mood Skin Exam: Warm, Dry, Intact, Normal Color, No Rash Lymphatic: No Adenopathy Course - Vital Signs Last Recorded V/S: Last Vital Signs Temp 98.2 F 04/23/19 10:50 Pulse 96 04/23/19 10:50 Resp 16 04/23/19 10:50 BP 168/78 H 04/23/19 10:50 Pulse Ox 96 04/23/19 10:50 - Orders/Labs/Meds Orders: Active Orders 24 hr Category Date Time Status Forearm 2V Rt [CR] Urgent Exams 04/23/19 11:05 Taken Hand 2V Rt [CR] Urgent Exams 04/23/19 11:05 Taken - Radiology Interpretation Free Text/Narrative:: right forearm x-ray: FINDINGS: Bones/joints: No acute fracture is identified. Soft tissues: The soft tissues appear grossly unremarkable. No radiopaque foreign body is identified. IMPRESSION: No acute fracture identified. Thank you for allowing us to participate in the care of your patient. Dictated and Authenticated by: Toñito Martin MD 04/23/2019 12:40 PM Central Time ([place] & [place]) Right hand x-ray: FINDINGS: Bones/joints: No acute fracture or dislocation is identified. Soft tissues: The soft tissues appear grossly unremarkable. IMPRESSION: No acute fracture or dislocation identified. Thank you for allowing us to participate in the care of your patient. Dictated and Authenticated by: Toñito Martin MD 04/23/2019 12:39 PM Central Time ([place] & [place]) See radiologist's report Departure - Departure Time of Disposition: 12:47 Disposition: Home, Self-Care 01 Condition: Fair Clinical Impression: Right wrist sprain Qualifiers: Encounter type: initial encounter Qualified Code(s): S63.501A - Unspecified sprain of right wrist, initial encounter - Discharge Information *PRESCRIPTION DRUG MONITORING PROGRAM REVIEWED*: No *COPY OF PRESCRIPTION DRUG MONITORING REPORT IN PATIENT JUSTIN: No Instructions: Wrist Sprain, Adult, Cast or Splint Care, Adult, [id number], Elastic Bandage and RICE Forms: ED Department Discharge Additional Instructions: Continue to wear brace as directed May use [id number] pain medications as directed, as tolerated Skin using medications prescribed by Juan Carlos Rose NP Elevate the wrist, ice it as tolerated Follow-up with your primary care provider in the clinic if no improvement in 2 weeks Sepsis Event Note - Evaluation Sepsis Screening Result: No Definite Risk - Focused Exam Vital Signs: Vital Signs Temp Pulse Resp BP Pulse Ox 04/23/19 10:50 98.2 F 96 16 168/78 H 96 Date Exam was Performed: 04/23/19 Time Exam was Performed: 12:47 - My Orders Last 24 Hours: My Active Orders 04/23/19 11:05 Forearm 2V Rt [CR] Urgent Hand 2V Rt [CR] Urgent - Assessment/Plan Last 24 Hours: My Active Orders 04/23/19 11:05 Forearm 2V Rt [CR] Urgent Hand 2V Rt [CR] Urgent
== END 2019-04-23 12:53 | disposition home or self-care (01) ==
LOC: DL.ED 10:21
DX: S63.501A Unspecified sprain of right wrist, initial encounter (principal); J45.909 Unspecified asthma, uncomplicated; E66.9 Obesity, unspecified; I10 Essential (primary) hypertension; E78.00 Pure hypercholesterolemia, unspecified; E11.9 Type 2 diabetes mellitus without complications; Z79.4 Long term (current) use of insulin; Z88.0 Allergy status to penicillin; Z88.2 Allergy status to sulfonamides; Z88.8 Allergy status to other drugs, medicaments and biological substances; Z91.030 Bee allergy status; Z79.899 Other long term (current) drug therapy; Z68.43 Body mass index [BMI] 50.0-59.9, adult; W00.0XXA Fall on same level due to ice and snow, initial encounter; Y93.K1 Activity, walking an animal
CPT/HCPCS: 73090-RT; 73120-RT; 99283-25

== ENCOUNTER 2019-06-06 21:08 | Emergency (ER) | payer MEDICAID ==
[2019-06-06] MEDS ORDERED: Metoclopramide 10 MG/2 ML SDV IVPUSH ONE (21:30)
[2019-06-06] MEDS ORDERED: Lactated Ringers 1,000 ML IV ONE (21:30)
[2019-06-06] MEDS ORDERED: Sodium Chloride 0.9% 10 ML Syringe FLUSH PRN (21:30)
[2019-06-06] MEDS ORDERED: diphenhydrAMINE 50 MG/ML SDV IVPUSH ONE (21:30)
--- NOTE | 2019-06-06 22:55 | EDM.PDOC ---
ED HPI GENERAL MEDICAL PROBLEM - General Chief Complaint: Headache Stated Complaint: HEADACHE Time Seen by Provider: 06/06/19 21:31 Source of Information: Reports: Patient History Limitations: Reports: No Limitations - History of Present Illness INITIAL COMMENTS - FREE TEXT/NARRATIVE: patient comes emergency department today with complaints of a headache. Patient for the past 3 weeks has had a headache. This feels like a very typical migraine for her other than that it's lasted for 3 weeks. She has been taking her chronic Topamax without improvement of her headache. She has tried her Imitrex. She has not tried any Tylenol or ibuprofen. No fevers no chills no neck pain. Recent falls or trauma. No change in her visual acuity. No change in the functionality or sensation of her upper or lower extremities. She has had nausea vomiting photophobia and phonophobia. This is not her worst headache ever it is very typical for her although it is lasting longer than normal. Headache Pain Score (Numeric/FACES): 10 - Related Data Allergies Allergy/AdvReac Type Severity Reaction Status Date / Time acetaminophen [From [place]] Allergy Hives Verified 06/06/19 21:29 escitalopram [From Lexapro] Allergy Rash Verified 06/06/19 21:29 fluoxetine [From Prozac] Allergy Rash Verified 06/06/19 21:29 hydrocodone [From [place]] Allergy Hives Verified 06/06/19 21:29 ibuprofen Allergy Rash Verified 06/06/19 21:29 Penicillins Allergy Hives Verified 06/06/19 21:29 ranitidine Allergy Hives Verified 06/06/19 21:29 Sulfa (Sulfonamide Allergy Rash Verified 06/06/19 21:29 Antibiotics) zolpidem [From Ambien] AdvReac Nausea and Verified 06/06/19 21:29 Vomiting BEE STING Allergy Unknown Anaphylactic Uncoded 06/06/19 21:29 Shock metformin Allergy Hives Uncoded 04/12/19 19:05 Home Meds: Home Meds Albuterol Sulfate 2.5 mg IH Q4H PRN 11/28/18 [History] Albuterol [Proventil HFA] 2 puff INH Q4H PRN 11/28/18 [History] Cetirizine [ZyrTEC] 10 mg PO DAILY 11/28/18 [History] Cyanocobalamin (Vitamin B-12) [Vitamin B-12] 1,000 mcg PO .WEEKLY 11/28/18 [ History] EPINEPHrine [Epipen] 0.3 mg IM ASDIRECTED PRN 11/28/18 [History] Fluticasone Propion/Salmeterol [Fluticasone-Salmeterol 250-50] 1 each IH DAILY 11/28/18 [History] Fluticasone Propionate [Flonase] 1 - 2 spray NASBOTH ASDIRECTED 11/28/18 [ History] Lisinopril 40 mg PO DAILY 11/28/18 [History] Omeprazole 20 mg PO DAILY 11/28/18 [History] Ondansetron [Zofran ODT] 4 mg PO Q8H PRN 11/28/18 [History] Orphenadrine [Norflex] 100 mg PO BID PRN 11/28/18 [History] Prazosin HCl [Prazosin] 2 mg PO BEDTIME 11/28/18 [History] QUEtiapine [SEROquel] 50 mg PO DAILY 11/28/18 [History] QUEtiapine [SEROquel] 150 mg PO BEDTIME 11/28/18 [History] Sennosides/Docusate Sodium [Senna Plus Tablet] 1 each PO DAILY 11/28/18 [History ] Solifenacin Succinate [Vesicare] 10 mg PO DAILY 11/28/18 [History] Topiramate 50 mg PO BID 11/28/18 [History] Vitamin D3 28360 Units Capsule 50,000 units PO DAILY 11/28/18 [History] amLODIPine Besylate [Amlodipine Besylate] 10 mg PO DAILY 11/28/18 [History] atorvaSTATin [Lipitor] 10 mg PO DAILY 11/28/18 [History] Multivitamin with Minerals [Multivitamins with Minerals] 1 tab PO DAILY [History] Cranberry Fruit [Cranberry] 500 mg PO BID 12/07/18 [History] Insulin Aspart [NovoLOG] 20 unit SQ ASDIRECTED 01/18/19 [History] Insulin Glarg,Human.Rec.Analog [Lantus] 68 unit SUBCUT ASDIRECTED 01/18/19 [ History] Prazosin [Minpress] 1 mg PO ASDIRECTED 01/18/19 [History] Topiramate [Topamax] 50 mg PO BID 01/18/19 [History] Past Medical History - Past Health History Medical/Surgical History: Denies Medical/Surgical History HEENT History: Reports: None Cardiovascular History: Reports: High Cholesterol, Hypertension Respiratory History: Reports: Asthma Gastrointestinal History: Reports: None, Bowel Obstruction, GERD Genitourinary History: Reports: None 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 Neurological History: Reports: Migraines Psychiatric History: Reports: Anxiety, Bipolar, Depression, PTSD Other Psychiatric History: pt unable to remember medications Endocrine/Metabolic History: Reports: Diabetes, Type II, Obesity/BMI 30+ Do You Give Correction Boluses or Sliding Scale: Yes Hematologic History: Reports: None Immunologic History: Reports: None Oncologic (Cancer) History: Reports: None Dermatologic History: Reports: None - Infectious Disease History Infectious Disease History: Reports: None - Past Surgical History Head Surgeries/Procedures: Reports: None GI Surgical History: Reports: Appendectomy Social & Family History - Family History Family Medical History: Noncontributory - Tobacco Use Smoking Status *Q: Never Smoker Second Hand Smoke Exposure: No - Caffeine Use Caffeine Use: Reports: Soda, Tea Other Caffeine Use: AVERAGE OF 12 OZ TEA DURING THE DAY - Recreational Drug Use Recreational Drug Use: No ED ROS GENERAL - Review of Systems Review Of Systems: Comprehensive ROS is negative, except as noted in HPI. - Physical Exam Exam: See Below Exam Limited By: No Limitations General Appearance: Alert, WD/WN, No Apparent Distress, Obese Eye Exam: Bilateral Eye: EOMI, Normal Inspection, PERRL Ears: Normal External Exam, Normal Canal, Hearing Grossly Normal, Normal TMs Nose: Normal Inspection, Normal Mucosa, No Blood Throat/Mouth: Normal Inspection, Normal Lips, Normal Teeth, Normal Oropharynx Head Exam: Atraumatic, Normocephalic Neck: Normal Inspection, Supple Respiratory/Chest: No Respiratory Distress, Lungs Clear, No Accessory Muscle Use Cardiovascular: Normal Peripheral Pulses, Regular Rate, Rhythm GI/Abdominal: Normal Bowel Sounds, Soft, Non-Tender Neuro Exam (Abbreviated): Alert, Oriented, CN II-XII Intact, Normal Cognition, Normal Reflexes, No Motor/Sensory Deficits Back Exam: Normal Inspection, Full Range of Motion Extremities: Normal Inspection, Normal Range of Motion, Normal Capillary Refill Psychiatric: Normal Affect Skin Exam: Warm, Dry, Intact, Normal Color, No Rash Course - Vital Signs Last Recorded V/S: Last Vital Signs Temp 36.0 C L 06/06/19 21:23 Pulse 99 06/06/19 21:23 Resp 16 06/06/19 21:23 BP 108/49 L 06/06/19 21:23 Pulse Ox 98 06/06/19 21:23 - Orders/Labs/Meds Orders: Active Orders 24 hr Category Date Time Status Peripheral IV Care [RC] . DIRECTED Care 06/06/19 21:31 Active Sodium Chloride 0.9% [Saline Flush] Med 06/06/19 21:30 Active 10 ml FLUSH ASDIRECTED PRN Peripheral IV Insertion Adult [OM.PC] Stat Oth 06/06/19 21:30 Ordered Medication Orders Sodium Chloride (Saline Flush) 10 ml FLUSH ASDIRECTED PRN PRN Reason: Keep Vein Open Last Admin: 06/06/19 22:28 Dose: 10 ml Meds: Medications Generic Name Dose Route Start Last Admin Trade Name Freq PRN Reason Stop Dose Admin Sodium Chloride 10 ml 06/06/19 21:30 06/06/19 22:28 Saline Flush FLUSH 10 ml ASDIRECTED PRN Administration Keep Vein Open Discontinued Medications Generic Name Dose Route Start Last Admin Trade Name Freq PRN Reason Stop Dose Admin Diphenhydramine HCl 25 mg 06/06/19 21:30 06/06/19 22:34 Benadryl IVPUSH 06/06/19 21:31 25 mg ONETIME ONE Administration Lactated Ringer's 1,000 mls @ 1,000 mls/hr 06/06/19 21:30 06/06/19 22:30 Ringers, Lactated IV 06/06/19 22:29 1,000 mls/hr .BOLUS ONE Administration Metoclopramide HCl 10 mg 06/06/19 21:30 06/06/19 22:32 Reglan IVPUSH 06/06/19 21:31 10 mg ONETIME ONE Administration - Re-Assessments/Exams Free Text/Narrative Re-Assessment/Exam: 06/06/19 22:54 IV of LR wide open. Benadryl 25 mg IV push. Reglan 10 mg IV push. She refuses the ibuprofen and she relates that she gets a rash from it. 06/06/19 23:28 Headache best it has been in a long time after the above therapy. 2-06/13. Rest of the symptoms resolved. Departure - Departure Time of Disposition: 23:29 Disposition: Home, Self-Care 01 Clinical Impression: Migraine - Discharge Information Instructions: Pain Medicine Instructions, [id number], Recurrent Migraine Headache, [id number] Forms: ED Department Discharge Additional Instructions: Lots of rest and sleep over the next few days. Increase fluid intake as well. Continue previous therapies. Follow up with neurology as planned. Return to the ED if new or worsening symptoms. Sepsis Event Note - Evaluation Sepsis Screening Result: No Definite Risk - Focused Exam Vital Signs: Vital Signs Temp Pulse Resp BP Pulse Ox 06/06/19 21:23 36.0 C L 99 16 108/49 L 98 Date Exam was Performed: 06/06/19 Time Exam was Performed: 23:28 - My Orders Last 24 Hours: My Active Orders 06/06/19 21:30 Sodium Chloride 0.9% [Saline Flush] 10 ml FLUSH ASDIRECTED PRN Peripheral IV Insertion Adult [OM.PC] Stat 06/06/19 21:31 Peripheral IV Care [RC] . DIRECTED - Assessment/Plan Last 24 Hours: My Active Orders 06/06/19 21:30 Sodium Chloride 0.9% [Saline Flush] 10 ml FLUSH ASDIRECTED PRN Peripheral IV Insertion Adult [OM.PC] Stat 06/06/19 21:31 Peripheral IV Care [RC] . DIRECTED Assessment:: Migraine Plan: Lots of rest and sleep over the next few days. Increase fluid intake as well. Continue previous therapies. Follow up with neurology as planned. Return to the ED if new or worsening symptoms.
== END 2019-06-06 23:36 | disposition home or self-care (01) ==
LOC: DL.ED 21:08
DX: G43.909 Migraine, unspecified, not intractable, without status migrainosus (principal); I10 Essential (primary) hypertension; J45.909 Unspecified asthma, uncomplicated; F31.9 Bipolar disorder, unspecified; E11.9 Type 2 diabetes mellitus without complications; E78.00 Pure hypercholesterolemia, unspecified; E66.9 Obesity, unspecified; Z68.42 Body mass index [BMI] 45.0-49.9, adult; Z79.4 Long term (current) use of insulin; Z79.899 Other long term (current) drug therapy; Z88.0 Allergy status to penicillin; Z88.8 Allergy status to other drugs, medicaments and biological substances; Z91.030 Bee allergy status; Z88.2 Allergy status to sulfonamides
CPT/HCPCS: 96374; 96375; 99283; J1200; J2765; J7120

== ENCOUNTER 2019-06-18 23:02 | Emergency (ER) | payer MEDICAID ==
--- NOTE | 2019-06-19 00:04 | EDM.PDOC ---
ED HPI GENERAL MEDICAL PROBLEM - General Chief Complaint: Lower Extremity Injury/Pain Stated Complaint: LEFT KNEE PAIN SINCE THU. Time Seen by Provider: 06/18/19 23:48 Source of Information: Reports: Patient History Limitations: Reports: No Limitations - History of Present Illness INITIAL COMMENTS - FREE TEXT/NARRATIVE: ED with c/o left knee pain since Thursday Stated doing dishes and felt some popping in knee, Now increased pain with ambulation. Denies twisting motion at time of onset. Has tried only baby aspirin for discomfort. Left Knee Pain Score (Numeric/FACES): 10 - Related Data Allergies Allergy/AdvReac Type Severity Reaction Status Date / Time acetaminophen [From [place]] Allergy Hives Verified 06/18/19 23:12 escitalopram [From Lexapro] Allergy Rash Verified 06/18/19 23:12 fluoxetine [From Prozac] Allergy Rash Verified 06/18/19 23:12 hydrocodone [From [place]] Allergy Hives Verified 06/18/19 23:12 ibuprofen Allergy Rash Verified 06/18/19 23:12 Penicillins Allergy Hives Verified 06/18/19 23:12 ranitidine Allergy Hives Verified 06/18/19 23:12 Sulfa (Sulfonamide Allergy Rash Verified 06/18/19 23:12 Antibiotics) zolpidem [From Ambien] AdvReac Nausea and Verified 06/18/19 23:12 Vomiting BEE STING Allergy Unknown Anaphylactic Uncoded 06/18/19 23:12 Shock metformin Allergy Hives Uncoded 06/18/19 23:12 Home Meds: Home Meds Albuterol Sulfate 2.5 mg IH Q4H PRN 11/28/18 [History] Albuterol [Proventil HFA] 2 puff INH Q4H PRN 11/28/18 [History] Cetirizine [ZyrTEC] 10 mg PO DAILY 11/28/18 [History] Cyanocobalamin (Vitamin B-12) [Vitamin B-12] 1,000 mcg PO .WEEKLY 11/28/18 [ History] EPINEPHrine [Epipen] 0.3 mg IM ASDIRECTED PRN 11/28/18 [History] Fluticasone Propion/Salmeterol [Fluticasone-Salmeterol 250-50] 1 each IH DAILY 11/28/18 [History] Fluticasone Propionate [Flonase] 1 - 2 spray NASBOTH ASDIRECTED 11/28/18 [ History] Lisinopril 40 mg PO DAILY 11/28/18 [History] Omeprazole 20 mg PO DAILY 11/28/18 [History] Ondansetron [Zofran ODT] 4 mg PO Q8H PRN 11/28/18 [History] Orphenadrine [Norflex] 100 mg PO BID PRN 11/28/18 [History] Prazosin HCl [Prazosin] 2 mg PO BEDTIME 11/28/18 [History] QUEtiapine [SEROquel] 50 mg PO DAILY 11/28/18 [History] QUEtiapine [SEROquel] 150 mg PO BEDTIME 11/28/18 [History] Sennosides/Docusate Sodium [Senna Plus Tablet] 1 each PO DAILY 11/28/18 [History ] Solifenacin Succinate [Vesicare] 10 mg PO DAILY 11/28/18 [History] Topiramate 50 mg PO BID 11/28/18 [History] Vitamin D3 76461 Units Capsule 50,000 units PO DAILY 11/28/18 [History] amLODIPine Besylate [Amlodipine Besylate] 10 mg PO DAILY 11/28/18 [History] atorvaSTATin [Lipitor] 10 mg PO DAILY 11/28/18 [History] Multivitamin with Minerals [Multivitamins with Minerals] 1 tab PO DAILY [History] Cranberry Fruit [Cranberry] 500 mg PO BID 12/07/18 [History] Insulin Aspart [NovoLOG] 20 unit SQ ASDIRECTED 01/18/19 [History] Insulin Glarg,Human.Rec.Analog [Lantus] 68 unit SUBCUT ASDIRECTED 01/18/19 [ History] Prazosin [Minpress] 1 mg PO ASDIRECTED 01/18/19 [History] Topiramate [Topamax] 50 mg PO BID 01/18/19 [History] Past Medical History - Past Health History Medical/Surgical History: Denies Medical/Surgical History HEENT History: Reports: None Cardiovascular History: Reports: High Cholesterol, Hypertension Respiratory History: Reports: Asthma Gastrointestinal History: Reports: None, Bowel Obstruction, GERD Genitourinary History: Reports: None UROLOGIC SURGEON History: Reports: None, , Other (See Below) Other UROLOGIC SURGEON History: tubal ligation Musculoskeletal History: Reports: Other (See Below) Other Musculoskeletal History: Tendonitis, carpel tunnel alfonso. Neurological History: Reports: Migraines Psychiatric History: Reports: Anxiety, Bipolar, Depression, PTSD Other Psychiatric History: pt unable to remember medications Endocrine/Metabolic History: Reports: Diabetes, Type II, Obesity/BMI 30+ Hematologic History: Reports: None Immunologic History: Reports: None Oncologic (Cancer) History: Reports: None Dermatologic History: Reports: None - Infectious Disease History Infectious Disease History: Reports: None - Past Surgical History Head Surgeries/Procedures: Reports: None GI Surgical History: Reports: Appendectomy Social & Family History - Family History Family Medical History: Noncontributory - Caffeine Use Caffeine Use: Reports: Coffee, Soda, Tea Other Caffeine Use: AVERAGE OF 12 OZ TEA DURING THE DAY - Recreational Drug Use Recreational Drug Use: No Review of Systems - Review of Systems Review Of Systems: Comprehensive ROS is negative, except as noted in HPI. ED EXAM, GENERAL - Physical Exam Exam: See Below Exam Limited By: No Limitations General Appearance: Alert, Mild Distress, Obese Eye Exam: Bilateral Eye: EOMI Ears: Normal External Exam Nose: Normal Inspection Throat/Mouth: Normal Inspection Head: Atraumatic, Normocephalic Neck: Normal Inspection Respiratory/Chest: No Respiratory Distress, Lungs Clear Cardiovascular: Normal Peripheral Pulses, Regular Rate, Rhythm GI/Abdominal: Normal Bowel Sounds, Soft Back Exam: Normal Inspection Extremities: Leg Pain, Limited Range of Motion (increased pain with flexion and weight bearing, no swelling crepitation or deformity). No: Normal Range of Motion, Joint Swelling, Increased Warmth Neurological: Alert, Oriented, Normal Cognition Psychiatric: Normal Affect, Normal Mood Skin Exam: Warm, Dry, Intact Lymphatic: No Adenopathy Course - Vital Signs Last Recorded V/S: Last Vital Signs Temp 97.8 F 06/18/19 23:18 Pulse 104 H 06/18/19 23:18 Resp 20 06/18/19 23:18 BP 156/93 H 06/18/19 23:18 Pulse Ox 99 06/18/19 23:18 - Orders/Labs/Meds Orders: left knee unremarkable, see report Departure - Departure Time of Disposition: 00:00 Disposition: Home, Self-Care 01 Condition: Good Clinical Impression: Left knee pain - Discharge Information *PRESCRIPTION DRUG MONITORING PROGRAM REVIEWED*: No *COPY OF PRESCRIPTION DRUG MONITORING REPORT IN PATIENT JUSTIN: No Instructions: Knee Pain, Adult Forms: ED Department Discharge Additional Instructions: clinic follow up if continued pain crutches dean wrap to knee\ weight bearing as tolerated aspirin 325-650 every 6 hours as needed for discomfort take with food Sepsis Event Note - Evaluation Sepsis Screening Result: No Definite Risk - Focused Exam Vital Signs: Vital Signs Temp Pulse Resp BP Pulse Ox 06/18/19 23:18 97.8 F 104 H 20 156/93 H 99 Date Exam was Performed: 06/19/19 Time Exam was Performed: 05:56
== END 2019-06-19 00:10 | disposition home or self-care (01) ==
LOC: DL.ED 23:02
DX: M25.562 Pain in left knee (principal); I10 Essential (primary) hypertension; E78.00 Pure hypercholesterolemia, unspecified; J45.909 Unspecified asthma, uncomplicated; K21.9 Gastro-esophageal reflux disease without esophagitis; F41.9 Anxiety disorder, unspecified; F32.9 Major depressive disorder, single episode, unspecified; E11.9 Type 2 diabetes mellitus without complications; E66.9 Obesity, unspecified; Z68.42 Body mass index [BMI] 45.0-49.9, adult; Z88.8 Allergy status to other drugs, medicaments and biological substances; Z88.0 Allergy status to penicillin; Z88.2 Allergy status to sulfonamides; Z88.5 Allergy status to narcotic agent; Z91.030 Bee allergy status; Z79.899 Other long term (current) drug therapy; Z79.4 Long term (current) use of insulin
CPT/HCPCS: 73562-LT; 99283-25

== ENCOUNTER 2019-06-27 18:40 | Emergency (ER) | payer MEDICAID ==
[2019-06-27] MEDS ORDERED: Magnesium Citrate Solution 296 ML Bottle PO ONE (18:41)
[2019-06-27] MEDS ORDERED: GI Cocktail Oral Solution 30 ML PO ONE (20:09)
[2019-06-27] MEDS ORDERED: Bacitracin Oint 1 GM U/D Packet TOP ONE (20:09)
--- NOTE | 2019-06-27 20:16 | EDM.PDOC ---
ED HPI GENERAL MEDICAL PROBLEM - General Chief Complaint: Gastrointestinal Problem Stated Complaint: HARD TO PEE,POOP AND HURTS ALL OVER. BURN ON HAND Time Seen by Provider: 06/27/19 19:00 Source of Information: Reports: Patient History Limitations: Reports: No Limitations - History of Present Illness INITIAL COMMENTS - FREE TEXT/NARRATIVE: c/o nausea, not able to keep anything down, feeling tired, constipated and burning with urination. Blood sugars in 200's x over one week, has not followed up in clinic for these issues but has been seen in regards to knee pain and MRI done today. No fever or chills Upper Abdomen Pain Score (Numeric/FACES): 9 - Related Data Allergies Allergy/AdvReac Type Severity Reaction Status Date / Time acetaminophen [From [place]] Allergy Hives Verified 06/27/19 18:57 escitalopram [From Lexapro] Allergy Rash Verified 06/27/19 18:57 fluoxetine [From Prozac] Allergy Rash Verified 06/27/19 18:57 hydrocodone [From [place]] Allergy Hives Verified 06/27/19 18:57 ibuprofen Allergy Rash Verified 06/27/19 18:57 Penicillins Allergy Hives Verified 06/27/19 18:57 ranitidine Allergy Hives Verified 06/27/19 18:57 Sulfa (Sulfonamide Allergy Rash Verified 06/27/19 18:57 Antibiotics) zolpidem [From Ambien] AdvReac Nausea and Verified 06/27/19 18:57 Vomiting BEE STING Allergy Unknown Anaphylactic Uncoded 06/27/19 18:57 Shock metformin Allergy Hives Uncoded 06/27/19 18:57 Home Meds: Home Meds Albuterol Sulfate 2.5 mg IH Q4H PRN 11/28/18 [History] Albuterol [Proventil HFA] 2 puff INH Q4H PRN 11/28/18 [History] Cetirizine [ZyrTEC] 10 mg PO DAILY 11/28/18 [History] Cyanocobalamin (Vitamin B-12) [Vitamin B-12] 1,000 mcg PO .WEEKLY 11/28/18 [ History] EPINEPHrine [Epipen] 0.3 mg IM ASDIRECTED PRN 11/28/18 [History] Fluticasone Propion/Salmeterol [Fluticasone-Salmeterol 250-50] 1 each IH DAILY 11/28/18 [History] Fluticasone Propionate [Flonase] 1 - 2 spray NASBOTH ASDIRECTED 11/28/18 [ History] Lisinopril 40 mg PO DAILY 11/28/18 [History] Omeprazole 20 mg PO DAILY 11/28/18 [History] Ondansetron [Zofran ODT] 4 mg PO Q8H PRN 11/28/18 [History] Orphenadrine [Norflex] 100 mg PO BID PRN 11/28/18 [History] Prazosin HCl [Prazosin] 2 mg PO BEDTIME 11/28/18 [History] QUEtiapine [SEROquel] 50 mg PO DAILY 11/28/18 [History] QUEtiapine [SEROquel] 150 mg PO BEDTIME 11/28/18 [History] Sennosides/Docusate Sodium [Senna Plus Tablet] 1 each PO DAILY 11/28/18 [History ] Solifenacin Succinate [Vesicare] 10 mg PO DAILY 11/28/18 [History] Topiramate 50 mg PO BID 11/28/18 [History] Vitamin D3 69165 Units Capsule 50,000 units PO DAILY 11/28/18 [History] amLODIPine Besylate [Amlodipine Besylate] 10 mg PO DAILY 11/28/18 [History] atorvaSTATin [Lipitor] 10 mg PO DAILY 11/28/18 [History] Multivitamin with Minerals [Multivitamins with Minerals] 1 tab PO DAILY [History] Cranberry Fruit [Cranberry] 500 mg PO BID 12/07/18 [History] Insulin Aspart [NovoLOG] 20 unit SQ ASDIRECTED 01/18/19 [History] Insulin Glarg,Human.Rec.Analog [Lantus] 68 unit SUBCUT ASDIRECTED 01/18/19 [ History] Prazosin [Minpress] 1 mg PO ASDIRECTED 01/18/19 [History] Topiramate [Topamax] 50 mg PO BID 01/18/19 [History] Past Medical History - Past Health History Medical/Surgical History: Denies Medical/Surgical History HEENT History: Reports: None Cardiovascular History: Reports: High Cholesterol, Hypertension Respiratory History: Reports: Asthma Gastrointestinal History: Reports: None, Bowel Obstruction, GERD Genitourinary History: Reports: None COMPLAINT INVESTIGATOR History: Reports: None, , Other (See Below) Other COMPLAINT INVESTIGATOR History: tubal ligation Musculoskeletal History: Reports: Other (See Below) Other Musculoskeletal History: Tendonitis, carpel tunnel alfonso. Neurological History: Reports: Migraines Psychiatric History: Reports: Anxiety, Bipolar, Depression, PTSD Other Psychiatric History: pt unable to remember medications Endocrine/Metabolic History: Reports: Diabetes, Type II, Obesity/BMI 30+ Hematologic History: Reports: None Immunologic History: Reports: None Oncologic (Cancer) History: Reports: None Dermatologic History: Reports: None - Infectious Disease History Infectious Disease History: Reports: None - Past Surgical History Head Surgeries/Procedures: Reports: None GI Surgical History: Reports: Appendectomy Social & Family History - Family History Family Medical History: Noncontributory - Tobacco Use Smoking Status *Q: Never Smoker - Caffeine Use Caffeine Use: Reports: Coffee, Soda, Tea Other Caffeine Use: AVERAGE OF 12 OZ TEA DURING THE DAY - Recreational Drug Use Recreational Drug Use: No ED ROS GENERAL - Review of Systems Review Of Systems: Comprehensive ROS is negative, except as noted in HPI. ED EXAM, GI/ABD - Physical Exam Exam: See Below Exam Limited By: No Limitations General Appearance: Alert, Mild Distress, Obese Eyes: Bilateral: EOMI Ears: Normal External Exam Nose: Normal Inspection Throat/Mouth: Normal Inspection Head: Atraumatic, Normocephalic Neck: Normal Inspection Respiratory/Chest: No Respiratory Distress, Lungs Clear, Normal Breath Sounds Cardiovascular: Normal Peripheral Pulses, Regular Rate, Rhythm GI/Abdominal Exam: Normal Bowel Sounds, Soft, Tender (epigastric, general lower) . No: Distended, Guarding, Rigid, Hernia, Mass Back Exam: Normal Inspection, Full Range of Motion Extremities: Leg Pain (knee) Neurological: Alert, Oriented, Normal Cognition Course - Vital Signs Last Recorded V/S: Last Vital Signs Temp 96.8 F L 06/27/19 18:57 Pulse 98 06/27/19 18:57 Resp 18 06/27/19 18:57 BP 144/92 H 06/27/19 18:57 Pulse Ox 100 06/27/19 18:57 - Orders/Labs/Meds Orders: Active Orders 24 hr Category Date Time Status Glucose [Blood Glucose Check, Bedside] [RC] ONETIME Care 06/27/19 19:24 Active Isolation [COMM] Routine Oth 06/27/19 19:43 Active Labs: Laboratory Tests 06/27/19 06/27/19 Range/Units 19:04 19:26 POC Glucose 242 H (70-105) mg/dl Urine Color Yellow (YELLOW) Urine Appearance Clear (CLEAR) Urine pH 6.5 (5.0-9.0) Ur Specific [place] 1.025 (1.005-1.030) Urine Protein Negative (NEGATIVE) Urine Glucose (UA) 500 H (NEGATIVE) Urine Ketones Trace H (NEGATIVE) Urine Occult Blood Negative (NEGATIVE) Urine Nitrite Negative (NEGATIVE) Urine Bilirubin Negative (NEGATIVE) Urine Urobilinogen 1.0 (0.2-1.0) mg/dL Ur Leukocyte Esterase Negative (NEGATIVE) Meds: Medications Discontinued Medications Generic Name Dose Route Start Last Admin Trade Name [place] PRN Reason Stop Dose Admin Al Hydroxide/Mg Hydroxide 30 ml 06/27/19 20:09 06/27/19 20:13 Gi Cocktail PO 06/27/19 20:10 30 ml ONETIME ONE Administration Bacitracin 1 dose 06/27/19 20:09 06/27/19 20:12 Bacitracin Oint 1 Gm TOP 06/27/19 20:10 1 dose ONETIME ONE Administration Magnesium Citrate Confirm 06/27/19 20:19 06/27/19 20:24 Citrate Of Magnesia Administered 06/27/19 20:20 Not Given Dose 296 ml .ROUTE .STK-MED ONE - Radiology Interpretation Free Text/Narrative:: Abdomen: Moderate constipation, No obstruction Departure - Departure Time of Disposition: 20:13 Disposition: Home, Self-Care 01 Condition: Good Clinical Impression: Broken skin Constipation Qualifiers: Constipation type: slow transit constipation Qualified Code(s): K59.01 - Slow transit constipation - Discharge Information *PRESCRIPTION DRUG MONITORING PROGRAM REVIEWED*: No *COPY OF PRESCRIPTION DRUG MONITORING REPORT IN PATIENT JUSTIN: No Instructions: Constipation, Adult Forms: ED Department Discharge Additional Instructions: increase fluids, small amounts more often bland diet monitor blood sugars discontinue aspirin ice to knee or over counter icy hot type medications for severe knee pain wash burn on hand at lest 3 times daily keep area covered with bandage during day, open to iar at night, follow up if redness, or drainage. One bottle Mag citrate one time for constipation Sepsis Event Note - Evaluation Sepsis Screening Result: No Definite Risk - Focused Exam Vital Signs: Vital Signs Temp Pulse Resp BP Pulse Ox 06/27/19 18:57 96.8 F L 98 18 144/92 H 100 Date Exam was Performed: 06/28/19 Time Exam was Performed: 02:59 - My Orders Last 24 Hours: My Active Orders 06/27/19 19:24 Glucose [Blood Glucose Check, Bedside] [RC] ONETIME 06/27/19 19:43 Isolation [COMM] Routine - Assessment/Plan Last 24 Hours: My Active Orders 06/27/19 19:24 Glucose [Blood Glucose Check, Bedside] [RC] ONETIME 06/27/19 19:43 Isolation [COMM] Routine
[2019-06-27] MEDS ORDERED: Magnesium Citrate Solution 296 ML Bottle ONE (20:19)
== END 2019-06-27 20:24 | disposition home or self-care (01) ==
LOC: DL.ED 18:40
DX: K59.01 Slow transit constipation (principal); E11.9 Type 2 diabetes mellitus without complications; I10 Essential (primary) hypertension; Z88.8 Allergy status to other drugs, medicaments and biological substances; Z88.0 Allergy status to penicillin; Z88.2 Allergy status to sulfonamides; Z88.5 Allergy status to narcotic agent; Z88.6 Allergy status to analgesic agent; Z79.899 Other long term (current) drug therapy; Z79.4 Long term (current) use of insulin; Z91.030 Bee allergy status
CPT/HCPCS: 74018; 81003; 82962; 87804; 99283; A9270

== ENCOUNTER 2019-07-13 19:23 | Emergency (ER) | payer MEDICAID ==
[2019-07-13] MEDS ORDERED: Sodium Chloride 0.9% 1,000 ML IV ONE (19:56)
[2019-07-13] MEDS ORDERED: Ondansetron 4 MG/2 ML SDV IVPUSH ONE (19:58)
[2019-07-13 20:01] LABS: ANION GAP 16.5 mEq/L (7-13); CHLORIDE,CL 100 mmol/L (98-107); SODIUM,NA 139 mmol/L (136-145)
--- NOTE | 2019-07-13 20:05 | EDM.PDOC ---
ED HPI GENERAL MEDICAL PROBLEM - General Chief Complaint: Genitourinary Problem Stated Complaint: UTI/YEAST INFECTION/CANNOT KEEP ANYTHING DOWN Time Seen by Provider: 07/13/19 19:40 Source of Information: Reports: Patient History Limitations: Reports: No Limitations - History of Present Illness INITIAL COMMENTS - FREE TEXT/NARRATIVE: ED with c/o nausea vomiting unable to keep anything down for one week, seen in clinic today, started on diflucan and macrobid for yeast and UTI. One dose antibiotic this afternoon. Patient seen frequently in past month for various complaints. Weight increase 6# since last visit. Perineal Area Pain Score (Numeric/FACES): 9 - Related Data Allergies Allergy/AdvReac Type Severity Reaction Status Date / Time acetaminophen [From [place]] Allergy Hives Verified 07/13/19 19:36 escitalopram [From Lexapro] Allergy Rash Verified 07/13/19 19:36 fluoxetine [From Prozac] Allergy Rash Verified 07/13/19 19:36 hydrocodone [From [place]] Allergy Hives Verified 07/13/19 19:36 ibuprofen Allergy Rash Verified 07/13/19 19:36 Penicillins Allergy Hives Verified 07/13/19 19:36 ranitidine Allergy Hives Verified 07/13/19 19:36 Sulfa (Sulfonamide Allergy Rash Verified 07/13/19 19:36 Antibiotics) zolpidem [From Ambien] AdvReac Nausea and Verified 07/13/19 19:36 Vomiting BEE STING Allergy Unknown Anaphylactic Uncoded 07/13/19 19:36 Shock metformin Allergy Hives Uncoded 07/13/19 19:36 Home Meds: Home Meds Albuterol Sulfate 2.5 mg IH Q4H PRN 11/28/18 [History] Albuterol [Proventil HFA] 2 puff INH Q4H PRN 11/28/18 [History] Cetirizine [ZyrTEC] 10 mg PO DAILY 11/28/18 [History] Cyanocobalamin (Vitamin B-12) [Vitamin B-12] 1,000 mcg PO .WEEKLY 11/28/18 [ History] EPINEPHrine [Epipen] 0.3 mg IM ASDIRECTED PRN 11/28/18 [History] Fluticasone Propion/Salmeterol [Fluticasone-Salmeterol 250-50] 1 each IH DAILY 11/28/18 [History] Fluticasone Propionate [Flonase] 1 - 2 spray NASBOTH ASDIRECTED 11/28/18 [ History] Lisinopril 40 mg PO DAILY 11/28/18 [History] Omeprazole 20 mg PO DAILY 11/28/18 [History] Ondansetron [Zofran ODT] 4 mg PO Q8H PRN 11/28/18 [History] Orphenadrine [Norflex] 100 mg PO BID PRN 11/28/18 [History] Prazosin HCl [Prazosin] 2 mg PO BEDTIME 11/28/18 [History] QUEtiapine [SEROquel] 50 mg PO DAILY 11/28/18 [History] QUEtiapine [SEROquel] 150 mg PO BEDTIME 11/28/18 [History] Sennosides/Docusate Sodium [Senna Plus Tablet] 1 each PO DAILY 11/28/18 [History ] Solifenacin Succinate [Vesicare] 10 mg PO DAILY 11/28/18 [History] Topiramate 50 mg PO BID 11/28/18 [History] Vitamin D3 62143 Units Capsule 50,000 units PO DAILY 11/28/18 [History] amLODIPine Besylate [Amlodipine Besylate] 10 mg PO DAILY 11/28/18 [History] atorvaSTATin [Lipitor] 10 mg PO DAILY 11/28/18 [History] Multivitamin with Minerals [Multivitamins with Minerals] 1 tab PO DAILY [History] Cranberry Fruit [Cranberry] 500 mg PO BID 12/07/18 [History] Insulin Aspart [NovoLOG] 20 unit SQ ASDIRECTED 01/18/19 [History] Insulin Glarg,Human.Rec.Analog [Lantus] 68 unit SUBCUT ASDIRECTED 01/18/19 [ History] Prazosin [Minpress] 1 mg PO ASDIRECTED 01/18/19 [History] Topiramate [Topamax] 50 mg PO BID 01/18/19 [History] Past Medical History - Past Health History Medical/Surgical History: Denies Medical/Surgical History HEENT History: Reports: None Cardiovascular History: Reports: High Cholesterol, Hypertension Respiratory History: Reports: Asthma Gastrointestinal History: Reports: None, Bowel Obstruction, GERD Genitourinary History: Reports: None HIGH SCHOOL LIBRARIAN History: Reports: None, , Other (See Below) Other HIGH SCHOOL LIBRARIAN History: tubal ligation Musculoskeletal History: Reports: Other (See Below) Other Musculoskeletal History: Tendonitis, carpel tunnel alfonso. Neurological History: Reports: Migraines Psychiatric History: Reports: Anxiety, Bipolar, Depression, PTSD Other Psychiatric History: pt unable to remember medications Endocrine/Metabolic History: Reports: Diabetes, Type II, Obesity/BMI 30+ Hematologic History: Reports: None Immunologic History: Reports: None Oncologic (Cancer) History: Reports: None Dermatologic History: Reports: None - Infectious Disease History Infectious Disease History: Reports: None - Past Surgical History Head Surgeries/Procedures: Reports: None GI Surgical History: Reports: Appendectomy Social & Family History - Family History Family Medical History: Noncontributory - Tobacco Use Smoking Status *Q: Never Smoker Second Hand Smoke Exposure: Yes - Caffeine Use Caffeine Use: Reports: Soda Other Caffeine Use: AVERAGE OF 12 OZ TEA DURING THE DAY - Recreational Drug Use Recreational Drug Use: No ED ROS GENERAL - Review of Systems Review Of Systems: Comprehensive ROS is negative, except as noted in HPI. ED EXAM, RENAL/ - Physical Exam Exam: See Below Exam Limited By: No Limitations General Appearance: Alert, No Apparent Distress, Obese Eye Exam: Bilateral Eye: PERRL Ears: Normal External Exam Nose: Normal Inspection Throat/Mouth: Normal Inspection Head: Atraumatic, Normocephalic Neck: Normal Inspection Respiratory/Chest: No Respiratory Distress, Lungs Clear Cardiovascular: Normal Peripheral Pulses, Regular Rate, Rhythm GI/Abdominal: Normal Bowel Sounds, Soft, Tender (mild general) Back Exam: CVA Tenderness (L), CVA Tenderness (R), Paraspinal Tenderness Extremities: Normal Inspection, Normal Range of Motion Neurological: Alert, Oriented Psychiatric: Normal Affect, Normal Mood Skin Exam: Warm, Dry, Intact, Rash (latisha) Course - Vital Signs Last Recorded V/S: Last Vital Signs Temp 97.1 F 07/13/19 19:31 Pulse 98 07/13/19 19:31 Resp 20 07/13/19 19:31 BP 132/73 07/13/19 19:31 Pulse Ox 99 07/13/19 19:31 - Orders/Labs/Meds Orders: Active Orders 24 hr Category Date Time Status CULTURE BLOOD [BC] Stat Lab 07/13/19 19:36 Received Labs: Laboratory Tests 04/11/2307/13/19 07/13/19 Range/Units 19:36 19:36 19:36 WBC 8.6 (5.0-10.0) 10^3/uL RBC 4.78 (4.2-5.4) 10^6/uL Hgb 13.7 (12.0-16.0) g/dL Hct 40.0 (37.0-47.0) % MCV 83.7 (80-100) fL MCH 28.7 (27.0-34.0) pg MCHC 34.3 (33.0-35.0) g/dL Plt Count 322 (150-450) 10^3/uL Neut % (Auto) 54.3 (42.2-75.2) % Lymph % (Auto) 35.2 (20.5-50.1) % [place] % (Auto) 7.6 (2-8) % Eos % (Auto) 2.3 (1.0-3.0) % Baso % (Auto) 0.6 (0.0-1.0) % Sodium 139 (136-145) mmol/L Potassium 3.5 (3.5-5.1) mmol/L Chloride 100 (98-107) mmol/L Carbon Dioxide 26 (21-32) mmol/L Anion Gap 16.5 H (7-13) mEq/L BUN 8 (7-18) mg/dL Creatinine 0.73 (0.55-1.02) mg/dL Est Cr Clr Drug Dosing 80.39 mL/min Estimated GFR (MDRD) > 60 BUN/Creatinine Ratio 11.0 (No establ ref range) Glucose 260 H (74-99) mg/dL Lactic Acid 2.9 H* (0.4-2.0) mmol/L Calcium 8.7 (8.5-10.1) mg/dL Total Bilirubin 0.3 (0.2-1.0) mg/dL AST 32 (15-37) U/L ALT 60 H (14-59) U/L Alkaline Phosphatase 91 (46-116) U/L Total Protein 7.1 (6.4-8.2) g/dL Albumin 3.5 (3.4-5.0) g/dL Globulin 3.6 Albumin/Globulin Ratio 1.0 Urine Color (YELLOW) Urine Appearance (CLEAR) Urine pH (5.0-9.0) Ur Specific [place] (1.005-1.030) Urine Protein (NEGATIVE) Urine Glucose (UA) (NEGATIVE) Urine Ketones (NEGATIVE) Urine Occult Blood (NEGATIVE) Urine Nitrite (NEGATIVE) Urine Bilirubin (NEGATIVE) Urine Urobilinogen (0.2-1.0) mg/dL Ur Leukocyte Esterase (NEGATIVE) Urine RBC /HPF Urine WBC (0-5/HPF) /HPF Ur Epithelial Cells (NOT SEEN) /HPF Amorphous Sediment (NOT SEEN) /HPF Urine Bacteria (0-FEW/HPF) /HPF Urine Mucus (NOT SEEN) /LPF 07/13/19 Range/Units 19:54 WBC (5.0-10.0) 10^3/uL RBC (4.2-5.4) 10^6/uL Hgb (12.0-16.0) g/dL Hct (37.0-47.0) % MCV (80-100) fL MCH (27.0-34.0) pg MCHC (33.0-35.0) g/dL Plt Count (150-450) 10^3/uL Neut % (Auto) (42.2-75.2) % Lymph % (Auto) (20.5-50.1) % [place] % (Auto) (2-8) % Eos % (Auto) (1.0-3.0) % Baso % (Auto) (0.0-1.0) % Sodium (136-145) mmol/L Potassium (3.5-5.1) mmol/L Chloride (98-107) mmol/L Carbon Dioxide (21-32) mmol/L Anion Gap (7-13) mEq/L BUN (7-18) mg/dL Creatinine (0.55-1.02) mg/dL Est Cr Clr Drug Dosing mL/min Estimated GFR (MDRD) BUN/Creatinine Ratio (No establ ref range) Glucose (74-99) mg/dL Lactic Acid (0.4-2.0) mmol/L Calcium (8.5-10.1) mg/dL Total Bilirubin (0.2-1.0) mg/dL AST (15-37) U/L ALT (14-59) U/L Alkaline Phosphatase (46-116) U/L Total Protein (6.4-8.2) g/dL Albumin (3.4-5.0) g/dL Globulin Albumin/Globulin Ratio Urine Color Yellow (YELLOW) Urine Appearance Slightly cloudy (CLEAR) Urine pH 6.5 (5.0-9.0) Ur Specific [place] 1.025 (1.005-1.030) Urine Protein Negative (NEGATIVE) Urine Glucose (UA) 500 H (NEGATIVE) Urine Ketones 15 H (NEGATIVE) Urine Occult Blood Small H (NEGATIVE) Urine Nitrite Negative (NEGATIVE) Urine Bilirubin Negative (NEGATIVE) Urine Urobilinogen 2.0 H (0.2-1.0) mg/dL Ur Leukocyte Esterase Negative (NEGATIVE) Urine RBC 0-5 /HPF Urine WBC 0-5 (0-5/HPF) /HPF Ur Epithelial Cells Moderate H (NOT SEEN) /HPF Amorphous Sediment Few (NOT SEEN) /HPF Urine Bacteria Few (0-FEW/HPF) /HPF Urine Mucus Moderate H (NOT SEEN) /LPF Meds: Medications Discontinued Medications Generic Name Dose Route Start Last Admin Trade Name Freq PRN Reason Stop Dose Admin Sodium Chloride 1,000 mls @ 999 mls/hr 07/13/19 19:56 07/13/19 20:01 Normal Saline IV 07/13/19 20:56 999 mls/hr .BOLUS ONE Administration Ondansetron HCl 4 mg 07/13/19 19:58 07/13/19 20:02 Zofran IVPUSH 07/13/19 19:59 4 mg ONETIME ONE Administration Departure - Departure Time of Disposition: 21:04 Disposition: Home, Self-Care 01 Condition: Good Clinical Impression: Nausea and vomiting Qualifiers: Vomiting type: bilious vomiting Qualified Code(s): R11.14 - Bilious vomiting - Discharge Information *PRESCRIPTION DRUG MONITORING PROGRAM REVIEWED*: No *COPY OF PRESCRIPTION DRUG MONITORING REPORT IN PATIENT JUSTIN: No Instructions: Nausea and Vomiting, Adult, [id number] Forms: ED Department Discharge Additional Instructions: Clinic follow up this week zofran 4mg odt one every 6 hours as needed for nausea/ vomiting monitor blood sugars discuss need for possible insulin adjustment with primary care take medications as directed Sepsis Event Note - Evaluation Sepsis Screening Result: No Definite Risk - Focused Exam Vital Signs: Vital Signs Temp Pulse Resp BP Pulse Ox 07/13/19 19:31 97.1 F 98 20 132/73 99 Date Exam was Performed: 07/13/19 Time Exam was Performed: 21:04 - My Orders Last 24 Hours: My Active Orders 07/13/19 19:36 CULTURE BLOOD [BC] Stat - Assessment/Plan Last 24 Hours: My Active Orders 07/13/19 19:36 CULTURE BLOOD [BC] Stat
[2019-07-13] MEDS ORDERED: Ondansetron 4 MG Tab.DIS ONE (21:06)
== END 2019-07-13 21:11 | disposition home or self-care (01) ==
LOC: DL.ED 19:23
DX: R11.14 Bilious vomiting (principal); I10 Essential (primary) hypertension; E11.9 Type 2 diabetes mellitus without complications; E78.00 Pure hypercholesterolemia, unspecified; J45.909 Unspecified asthma, uncomplicated; K21.9 Gastro-esophageal reflux disease without esophagitis; F41.9 Anxiety disorder, unspecified; F32.9 Major depressive disorder, single episode, unspecified; E66.9 Obesity, unspecified; Z68.42 Body mass index [BMI] 45.0-49.9, adult; Z90.49 Acquired absence of other specified parts of digestive tract; Z77.22 Contact with and (suspected) exposure to environmental tobacco smoke (acute) (chronic); Z88.8 Allergy status to other drugs, medicaments and biological substances; Z88.1 Allergy status to other antibiotic agents; Z88.0 Allergy status to penicillin; Z88.2 Allergy status to sulfonamides; Z91.030 Bee allergy status; Z79.4 Long term (current) use of insulin
CPT/HCPCS: 36415; 80053; 81001; 83605; 85025; 87040; 96361; 96374; 99284-25; J2405; J7030

== ENCOUNTER 2019-08-11 00:09 | Emergency (ER) | payer MEDICAID ==
--- NOTE | 2019-08-11 00:29 | EDM.PDOC ---
ED HPI GENERAL MEDICAL PROBLEM - General Chief Complaint: Skin Complaint Stated Complaint: SORE ON RIGHT BREAST AREA HURTS Time Seen by Provider: 08/11/19 00:20 Source of Information: Reports: Patient History Limitations: Reports: No Limitations - History of Present Illness INITIAL COMMENTS - FREE TEXT/NARRATIVE: This 38 yo female patient reports to the ED with right breast tenderness and "drainage". The patient reports she has been having issues with her right breast for the past 4-5 months. The patient reports she was seen in the Clinic about 1 week ago for this issue and has an appointment with a specialist sometime this month. The patient reports she has noticed increased pain this evening and reports the area is draining. The patient reports she took Aleve last night and used a triple antibiotic ointment last night also. Onset: Other (4-5 months ago) Duration: Constant Location: Reports: Other (Right upper lateral breast) Quality: Reports: Ache Severity: Moderate Improves with: Reports: None Worsens with: Reports: None Context: Reports: Other Associated Symptoms: Reports: No Other Symptoms Right Breast Pain Score (Numeric/FACES): 9 - Related Data Allergies Allergy/AdvReac Type Severity Reaction Status Date / Time acetaminophen [From [place]] Allergy Hives Verified 08/11/19 00:23 escitalopram [From Lexapro] Allergy Rash Verified 08/11/19 00:23 fluoxetine [From Prozac] Allergy Rash Verified 08/11/19 00:23 hydrocodone [From [employer] [place]] Allergy Hives Verified 08/11/19 00:23 ibuprofen Allergy Rash Verified 08/11/19 00:23 Penicillins Allergy Hives Verified 08/11/19 00:23 ranitidine Allergy Hives Verified 08/11/19 00:23 Sulfa (Sulfonamide Allergy Rash Verified 08/11/19 00:23 Antibiotics) zolpidem [From Ambien] AdvReac Nausea and Verified 08/11/19 00:23 Vomiting BEE STING Allergy Unknown Anaphylactic Uncoded 08/11/19 00:23 Shock metformin Allergy Hives Uncoded 08/11/19 00:23 Home Meds: Home Meds Albuterol Sulfate 2.5 mg IH Q4H PRN 11/28/18 [History] Albuterol [Proventil HFA] 2 puff INH Q4H PRN 11/28/18 [History] Cetirizine [ZyrTEC] 10 mg PO DAILY 11/28/18 [History] Cyanocobalamin (Vitamin B-12) [Vitamin B-12] 1,000 mcg PO .WEEKLY 11/28/18 [ History] EPINEPHrine [Epipen] 0.3 mg IM ASDIRECTED PRN 11/28/18 [History] Fluticasone Propion/Salmeterol [Fluticasone-Salmeterol 250-50] 1 each IH DAILY 11/28/18 [History] Fluticasone Propionate [Flonase] 1 - 2 spray NASBOTH ASDIRECTED 11/28/18 [ History] Lisinopril 40 mg PO DAILY 11/28/18 [History] Omeprazole 20 mg PO DAILY 11/28/18 [History] Ondansetron [Zofran ODT] 4 mg PO Q8H PRN 11/28/18 [History] Orphenadrine [Norflex] 100 mg PO BID PRN 11/28/18 [History] Prazosin HCl [Prazosin] 2 mg PO BEDTIME 11/28/18 [History] QUEtiapine [SEROquel] 50 mg PO DAILY 11/28/18 [History] QUEtiapine [SEROquel] 150 mg PO BEDTIME 11/28/18 [History] Sennosides/Docusate Sodium [Senna Plus Tablet] 1 each PO DAILY 11/28/18 [History ] Solifenacin Succinate [Vesicare] 10 mg PO DAILY 11/28/18 [History] Topiramate 50 mg PO BID 11/28/18 [History] Vitamin D3 74167 Units Capsule 50,000 units PO DAILY 11/28/18 [History] amLODIPine Besylate [Amlodipine Besylate] 10 mg PO DAILY 11/28/18 [History] atorvaSTATin [Lipitor] 10 mg PO DAILY 11/28/18 [History] Multivitamin with Minerals [Multivitamins with Minerals] 1 tab PO DAILY [History] Cranberry Fruit [Cranberry] 500 mg PO BID 12/07/18 [History] Insulin Aspart [NovoLOG] 20 unit SQ ASDIRECTED 01/18/19 [History] Insulin Glarg,Human.Rec.Analog [Lantus] 68 unit SUBCUT ASDIRECTED 01/18/19 [ History] Prazosin [Minpress] 1 mg PO ASDIRECTED 01/18/19 [History] Topiramate [Topamax] 50 mg PO BID 01/18/19 [History] Past Medical History - Past Health History Medical/Surgical History: Denies Medical/Surgical History HEENT History: Reports: None Cardiovascular History: Reports: High Cholesterol, Hypertension Respiratory History: Reports: Asthma Gastrointestinal History: Reports: None, Bowel Obstruction, GERD Genitourinary History: Reports: None SPLICER APPRENTICE History: Reports: None, , Other (See Below) Other SPLICER APPRENTICE History: tubal ligation Musculoskeletal History: Reports: Other (See Below) Other Musculoskeletal History: Tendonitis, carpel tunnel alfonso. Neurological History: Reports: Migraines Psychiatric History: Reports: Anxiety, Bipolar, Depression, PTSD Other Psychiatric History: pt unable to remember medications Endocrine/Metabolic History: Reports: Diabetes, Type II, Obesity/BMI 30+ Hematologic History: Reports: None Immunologic History: Reports: None Oncologic (Cancer) History: Reports: None Dermatologic History: Reports: None - Infectious Disease History Infectious Disease History: Reports: None - Past Surgical History Head Surgeries/Procedures: Reports: None GI Surgical History: Reports: Appendectomy Social & Family History - Family History Family Medical History: Noncontributory - Tobacco Use Smoking Status *Q: Never Smoker - Caffeine Use Caffeine Use: Reports: Soda, Tea Other Caffeine Use: AVERAGE OF 12 OZ TEA DURING THE DAY - Recreational Drug Use Recreational Drug Use: No ED ROS GENERAL - Review of Systems Review Of Systems: Comprehensive ROS is negative, except as noted in HPI. ED EXAM, SKIN/RASH Exam: See Below Exam Limited By: No Limitations General Appearance: Alert, WD/WN, Anxious, Mild Distress, Obese Eye Exam: Bilateral Eye: EOMI, Normal Inspection, PERRL Ears: Normal External Exam, Normal Canal, Hearing Grossly Normal, Normal TMs Nose: Normal Inspection, Normal Mucosa, No Blood Throat/Mouth: Normal Inspection, Normal Lips, Normal Teeth, Normal Gums, Normal Oropharynx, Normal Voice, No Airway Compromise Head: Atraumatic, Normocephalic Neck: Normal Inspection, Supple, Non-Tender, Full Range of Motion Respiratory/Chest: No Respiratory Distress, Lungs Clear, Normal Breath Sounds, No Accessory Muscle Use, Chest Non-Tender Cardiovascular: Normal Peripheral Pulses, Regular Rate, Rhythm, No Edema, No Gallop, No JVD, No Murmur, No Rub GI/Abdominal: Normal Bowel Sounds, Soft, Non-Tender, No Organomegaly, No Distention, No Abnormal Bruit, No Mass, Other (morbid obesity) (Female) Exam: Deferred Rectal (Female) Exam: Deferred Back Exam: Normal Inspection, Full Range of Motion, NT Extremities: Normal Inspection, Normal Range of Motion, Non-Tender, No Pedal Edema, Normal Capillary Refill Neurological: Alert, Oriented, CN II-XII Intact, Normal Cognition, Normal Gait, Normal Reflexes, No Motor/Sensory Deficits Psychiatric: Normal Affect, Normal Mood Skin: Erythema, Other Location, Skin: Other (right breast has an excoriated area with surrounding erythema, there is no evidence of drainage and no induration. The patient reports she has been using triple antibiotic with no evidence of ointment to the area. ) Associated features: Tenderness, Inflammation. No: Induration, Crusting, Weeping Lymphatic: No Adenopathy Course - Vital Signs Last Recorded V/S: Last Vital Signs Temp 36.3 C 08/11/19 00:14 Pulse 97 08/11/19 00:14 Resp 16 08/11/19 00:14 BP 142/82 H 08/11/19 00:14 Pulse Ox 96 08/11/19 00:14 - Orders/Labs/Meds Orders: Active Orders 24 hr Category Date Time Status CULTURE BLOOD [BC] Stat Lab 08/11/19 00:32 Received Labs: Laboratory Tests 08/11/19 08/11/19 08/11/19 Range/Units 00:32 00:32 00:32 WBC 9.7 (5.0-10.0) 10^3/uL RBC 4.78 (4.2-5.4) 10^6/uL Hgb 13.6 (12.0-16.0) g/dL Hct 40.5 (37.0-47.0) % MCV 84.7 (80-100) fL MCH 28.5 (27.0-34.0) pg MCHC 33.6 (33.0-35.0) g/dL Plt Count 334 (150-450) 10^3/uL Neut % (Auto) 46.4 (42.2-75.2) % Lymph % (Auto) 42.7 (20.5-50.1) % [place] % (Auto) 7.8 (2-8) % Eos % (Auto) 2.5 (1.0-3.0) % Baso % (Auto) 0.6 (0.0-1.0) % Sodium 140 (136-145) mmol/L Potassium 3.7 (3.5-5.1) mmol/L Chloride 102 (98-107) mmol/L Carbon Dioxide 30 (21-32) mmol/L Anion Gap 11.7 (7-13) mEq/L BUN 10 (7-18) mg/dL Creatinine 0.64 (0.55-1.02) mg/dL Est Cr Clr Drug Dosing 91.70 mL/min Estimated GFR (MDRD) > 60 BUN/Creatinine Ratio 15.6 (No establ ref range) Glucose 141 H (74-99) mg/dL Lactic Acid 1.7 (0.4-2.0) mmol/L Calcium 8.8 (8.5-10.1) mg/dL Total Bilirubin 0.3 (0.2-1.0) mg/dL AST 26 (15-37) U/L ALT 52 (14-59) U/L Alkaline Phosphatase 90 (46-116) U/L Total Protein 6.9 (6.4-8.2) g/dL Albumin 3.5 (3.4-5.0) g/dL Globulin 3.4 Albumin/Globulin Ratio 1.0 Departure - Departure Time of Disposition: 01:06 Disposition: Home, Self-Care 01 Condition: Fair Clinical Impression: Cellulitis Qualifiers: Site of cellulitis: other site Qualified Code(s): L03.818 - Cellulitis of other sites - Discharge Information *PRESCRIPTION DRUG MONITORING PROGRAM REVIEWED*: Not Applicable *COPY OF PRESCRIPTION DRUG MONITORING REPORT IN PATIENT JUSTIN: Not Applicable Instructions: Cellulitis, Adult, [id number] Forms: ED Department Discharge Care Plan Goals: The patient was encouraged to continue to use the antibiotic ointment to the area of concern. The patient should follow-up with her primary care facility as well as with the specialist as scheduled. The patient may apply warm packs to the area and continue to take Aleve as directed for temporary symptom relief. The patient should refrain from rubbing or scratching the area. If the patient has any additional symptoms or concerns, the patient should visit her primary care facility or return to the emergency department. Sepsis Event Note - Evaluation Sepsis Screening Result: No Definite Risk - Focused Exam Vital Signs: Vital Signs Temp Pulse Resp BP Pulse Ox 08/11/19 00:14 36.3 C 97 16 142/82 H 96 Date Exam was Performed: 08/11/19 Time Exam was Performed: 01:06 - My Orders Last 24 Hours: My Active Orders 08/11/19 00:32 CULTURE BLOOD [BC] Stat - Assessment/Plan Last 24 Hours: My Active Orders 08/11/19 00:32 CULTURE BLOOD [BC] Stat
[2019-08-11 00:58] LABS: ANION GAP 11.7 mEq/L (7-13); CHLORIDE,CL 102 mmol/L (98-107); SODIUM,NA 140 mmol/L (136-145)
== END 2019-08-11 01:10 | disposition home or self-care (01) ==
LOC: DL.ED 00:09
DX: N61.0 Mastitis without abscess (principal); E78.00 Pure hypercholesterolemia, unspecified; I10 Essential (primary) hypertension; J45.909 Unspecified asthma, uncomplicated; K21.9 Gastro-esophageal reflux disease without esophagitis; F31.9 Bipolar disorder, unspecified; F41.9 Anxiety disorder, unspecified; E11.9 Type 2 diabetes mellitus without complications; E66.9 Obesity, unspecified; G43.909 Migraine, unspecified, not intractable, without status migrainosus; Z68.42 Body mass index [BMI] 45.0-49.9, adult; Z88.6 Allergy status to analgesic agent; Z88.8 Allergy status to other drugs, medicaments and biological substances; Z88.0 Allergy status to penicillin; Z88.2 Allergy status to sulfonamides; Z91.030 Bee allergy status; Z79.4 Long term (current) use of insulin; Z79.899 Other long term (current) drug therapy
CPT/HCPCS: 36415; 80053; 83605; 85025; 87040; 99283

== ENCOUNTER 2019-09-14 21:20 | Emergency (ER) | payer MEDICAID ==
[2019-09-14] MEDS ORDERED: Ondansetron 4 MG Tab.DIS PO ONE (21:21)
[2019-09-14] MEDS ORDERED: Sodium Chloride 0.9% 1,000 ML IV ONE (22:20)
[2019-09-14] MEDS ORDERED: Ondansetron 4 MG/2 ML SDV IVPUSH ONE (22:20)
--- NOTE | 2019-09-14 22:47 | EDM.PDOC ---
ED HPI GENERAL MEDICAL PROBLEM - General Chief Complaint: General Stated Complaint: DIZZY, HEADACHE, SICK TO STOMACH, Time Seen by Provider: 09/14/19 21:35 Source of Information: Reports: Patient History Limitations: Reports: No Limitations - History of Present Illness INITIAL COMMENTS - FREE TEXT/NARRATIVE: C/o general headache, migraine type x 2 days with nausea vomiting and loose stools emesis 3-4 times daily, and loose stools 4-5 per day. generalized aches. No fever or cough. Has has similar sx in past when headaches get bad as cannot take pain medication due to being allergic to most medications. Denies urinary sx. Headache Pain Score (Numeric/FACES): 9 Upper Abdomen Pain Score (Numeric/FACES): 8 - Related Data Allergies Allergy/AdvReac Type Severity Reaction Status Date / Time acetaminophen [From [place]] Allergy Hives Verified 09/14/19 21:38 escitalopram [From Lexapro] Allergy Rash Verified 09/14/19 21:38 fluoxetine [From Prozac] Allergy Rash Verified 09/14/19 21:38 hydrocodone [From [place]] Allergy Hives Verified 09/14/19 21:38 ibuprofen Allergy Rash Verified 09/14/19 21:38 Penicillins Allergy Hives Verified 09/14/19 21:38 ranitidine Allergy Hives Verified 09/14/19 21:38 Sulfa (Sulfonamide Allergy Rash Verified 09/14/19 21:38 Antibiotics) zolpidem [From Ambien] AdvReac Nausea and Verified 09/14/19 21:38 Vomiting BEE STING Allergy Unknown Anaphylactic Uncoded 09/14/19 21:38 Shock metformin Allergy Hives Uncoded 09/14/19 21:38 Home Meds: Home Meds Albuterol Sulfate 2.5 mg IH Q4H PRN 11/28/18 [History] Albuterol [Proventil HFA] 2 puff INH Q4H PRN 11/28/18 [History] Cetirizine [ZyrTEC] 10 mg PO DAILY 11/28/18 [History] Cyanocobalamin (Vitamin B-12) [Vitamin B-12] 1,000 mcg PO .WEEKLY 11/28/18 [ History] EPINEPHrine [Epipen] 0.3 mg IM ASDIRECTED PRN 11/28/18 [History] Fluticasone Propion/Salmeterol [Fluticasone-Salmeterol 250-50] 1 each IH DAILY 11/28/18 [History] Fluticasone Propionate [Flonase] 1 - 2 spray NASBOTH ASDIRECTED 11/28/18 [ History] Lisinopril 40 mg PO DAILY 11/28/18 [History] Omeprazole 20 mg PO DAILY 11/28/18 [History] Ondansetron [Zofran ODT] 4 mg PO Q8H PRN 11/28/18 [History] Orphenadrine [Norflex] 100 mg PO BID PRN 11/28/18 [History] Prazosin HCl [Prazosin] 2 mg PO BEDTIME 11/28/18 [History] QUEtiapine [SEROquel] 50 mg PO DAILY 11/28/18 [History] QUEtiapine [SEROquel] 150 mg PO BEDTIME 11/28/18 [History] Sennosides/Docusate Sodium [Senna Plus Tablet] 1 each PO DAILY 11/28/18 [History ] Solifenacin Succinate [Vesicare] 10 mg PO DAILY 11/28/18 [History] Topiramate 50 mg PO BID 11/28/18 [History] Vitamin D3 52608 Units Capsule 50,000 units PO DAILY 11/28/18 [History] amLODIPine Besylate [Amlodipine Besylate] 10 mg PO DAILY 11/28/18 [History] atorvaSTATin [Lipitor] 10 mg PO DAILY 11/28/18 [History] Multivitamin with Minerals [Multivitamins with Minerals] 1 tab PO DAILY [History] Cranberry Fruit [Cranberry] 500 mg PO BID 12/07/18 [History] Insulin Aspart [NovoLOG] 20 unit SQ ASDIRECTED 01/18/19 [History] Insulin Glarg,Human.Rec.Analog [Lantus] 68 unit SUBCUT ASDIRECTED 01/18/19 [ History] Prazosin [Minpress] 1 mg PO ASDIRECTED 01/18/19 [History] Topiramate [Topamax] 50 mg PO BID 01/18/19 [History] Past Medical History - Past Health History Medical/Surgical History: Denies Medical/Surgical History HEENT History: Reports: None Cardiovascular History: Reports: High Cholesterol, Hypertension Respiratory History: Reports: Asthma Gastrointestinal History: Reports: None, Bowel Obstruction, GERD Genitourinary History: Reports: None CORK INSULATION SETTER History: Reports: None, , Other (See Below) Other CORK INSULATION SETTER History: tubal ligation Musculoskeletal History: Reports: Other (See Below) Other Musculoskeletal History: Tendonitis, carpel tunnel alfonso. Neurological History: Reports: Migraines Psychiatric History: Reports: Anxiety, Bipolar, Depression, PTSD Other Psychiatric History: pt unable to remember medications Endocrine/Metabolic History: Reports: Diabetes, Type II, Obesity/BMI 30+ Hematologic History: Reports: None Immunologic History: Reports: None Oncologic (Cancer) History: Reports: None Dermatologic History: Reports: None - Infectious Disease History Infectious Disease History: Reports: None - Past Surgical History Head Surgeries/Procedures: Reports: None GI Surgical History: Reports: Appendectomy Social & Family History - Family History Family Medical History: Noncontributory - Tobacco Use Smoking Status *Q: Never Smoker Second Hand Smoke Exposure: No - Caffeine Use Caffeine Use: Reports: Tea Other Caffeine Use: AVERAGE OF 12 OZ TEA DURING THE DAY - Recreational Drug Use Recreational Drug Use: No ED ROS GENERAL - Review of Systems Review Of Systems: Comprehensive ROS is negative, except as noted in HPI. ED EXAM, GENERAL - Physical Exam Exam: See Below Exam Limited By: No Limitations General Appearance: Alert, Anxious, Obese Eye Exam: Bilateral Eye: EOMI, PERRL, Other (light sensitive) Ears: Normal External Exam Ear Exam: Bilateral Ear: TM normal Nose: Normal Inspection Throat/Mouth: Normal Inspection Head: Atraumatic, Normocephalic Neck: Normal Inspection Respiratory/Chest: No Respiratory Distress, Lungs Clear, Normal Breath Sounds Cardiovascular: Normal Peripheral Pulses, Regular Rate, Rhythm GI/Abdominal: Normal Bowel Sounds Back Exam: Normal Inspection, Full Range of Motion Extremities: Normal Inspection, Normal Range of Motion Neurological: Alert, Oriented, Normal Cognition Psychiatric: Anxious, Tearful Skin Exam: Warm, Dry, Intact, Normal Color Course - Vital Signs Last Recorded V/S: Last Vital Signs Temp 98.7 F 09/14/19 23:41 Pulse 80 09/14/19 23:41 Resp 19 09/14/19 23:41 BP 125/81 09/14/19 23:41 Pulse Ox 99 09/14/19 23:41 - Orders/Labs/Meds Labs: Laboratory Tests 09/14/19 09/14/19 09/14/19 Range/Units 22:32 22:32 22:32 WBC 8.5 (5.0-10.0) 10^3/uL RBC 4.93 (4.2-5.4) 10^6/uL Hgb 14.4 (12.0-16.0) g/dL Hct 42.0 (37.0-47.0) % MCV 85.2 (80-100) fL MCH 29.2 (27.0-34.0) pg MCHC 34.3 (33.0-35.0) g/dL Plt Count 320 (150-450) 10^3/uL Neut % (Auto) 55.4 (42.2-75.2) % Lymph % (Auto) 34.8 (20.5-50.1) % [place] % (Auto) 6.6 (2-8) % Eos % (Auto) 2.8 (1.0-3.0) % Baso % (Auto) 0.4 (0.0-1.0) % Sodium 139 (136-145) mmol/L Potassium 4.2 (3.5-5.1) mmol/L Chloride 102 (98-107) mmol/L Carbon Dioxide 27 (21-32) mmol/L Anion Gap 14.2 H (7-13) mEq/L BUN 8 (7-18) mg/dL Creatinine 0.76 (0.55-1.02) mg/dL Est Cr Clr Drug Dosing 77.22 mL/min Estimated GFR (MDRD) > 60 BUN/Creatinine Ratio 10.5 (No establ ref range) Glucose 203 H (74-99) mg/dL Lactic Acid 2.0 (0.4-2.0) mmol/L Calcium 8.9 (8.5-10.1) mg/dL Total Bilirubin 0.3 (0.2-1.0) mg/dL AST 42 H (15-37) U/L ALT 67 H (14-59) U/L Alkaline Phosphatase 88 (46-116) U/L Total Protein 7.2 (6.4-8.2) g/dL Albumin 3.6 (3.4-5.0) g/dL Globulin 3.6 Albumin/Globulin Ratio 1.0 Amylase (25-115) U/L Lipase (73-393) U/L HCG, Qual Negative Urine Color (YELLOW) Urine Appearance (CLEAR) Urine pH (5.0-9.0) Ur Specific [place] (1.005-1.030) Urine Protein (NEGATIVE) Urine Glucose (UA) (NEGATIVE) Urine Ketones (NEGATIVE) Urine Occult Blood (NEGATIVE) Urine Nitrite (NEGATIVE) Urine Bilirubin (NEGATIVE) Urine Urobilinogen (0.2-1.0) mg/dL Ur Leukocyte Esterase (NEGATIVE) 09/14/19 09/14/19 Range/Units 22:32 23:39 WBC (5.0-10.0) 10^3/uL RBC (4.2-5.4) 10^6/uL Hgb (12.0-16.0) g/dL Hct (37.0-47.0) % MCV (80-100) fL MCH (27.0-34.0) pg MCHC (33.0-35.0) g/dL Plt Count (150-450) 10^3/uL Neut % (Auto) (42.2-75.2) % Lymph % (Auto) (20.5-50.1) % [place] % (Auto) (2-8) % Eos % (Auto) (1.0-3.0) % Baso % (Auto) (0.0-1.0) % Sodium (136-145) mmol/L Potassium (3.5-5.1) mmol/L Chloride (98-107) mmol/L Carbon Dioxide (21-32) mmol/L Anion Gap (7-13) mEq/L BUN (7-18) mg/dL Creatinine (0.55-1.02) mg/dL Est Cr Clr Drug Dosing mL/min Estimated GFR (MDRD) BUN/Creatinine Ratio (No establ ref range) Glucose (74-99) mg/dL Lactic Acid (0.4-2.0) mmol/L Calcium (8.5-10.1) mg/dL Total Bilirubin (0.2-1.0) mg/dL AST (15-37) U/L ALT (14-59) U/L Alkaline Phosphatase (46-116) U/L Total Protein (6.4-8.2) g/dL Albumin (3.4-5.0) g/dL Globulin Albumin/Globulin Ratio Amylase 36 (25-115) U/L Lipase 89 (73-393) U/L HCG, Qual Urine Color Yellow (YELLOW) Urine Appearance Clear (CLEAR) Urine pH 6.0 (5.0-9.0) Ur Specific [place] 1.025 (1.005-1.030) Urine Protein Negative (NEGATIVE) Urine Glucose (UA) 250 H (NEGATIVE) Urine Ketones Negative (NEGATIVE) Urine Occult Blood Negative (NEGATIVE) Urine Nitrite Negative (NEGATIVE) Urine Bilirubin Negative (NEGATIVE) Urine Urobilinogen 1.0 (0.2-1.0) mg/dL Ur Leukocyte Esterase Negative (NEGATIVE) Meds: Medications Discontinued Medications Generic Name Dose Route Start Last Admin Trade Name Freq PRN Reason Stop Dose Admin Diphenhydramine HCl 50 mg 09/14/19 23:26 09/14/19 23:32 Benadryl IVPUSH 09/14/19 23:27 50 mg ONETIME ONE Administration Sodium Chloride 1,000 mls @ 999 mls/hr 09/14/19 22:20 09/14/19 22:38 Normal Saline IV 09/14/19 23:20 999 mls/hr .BOLUS ONE Administration Ondansetron HCl 4 mg 09/14/19 22:20 09/14/19 22:40 Zofran IVPUSH 09/14/19 22:21 4 mg ONETIME ONE Administration Ondansetron HCl Confirm 09/15/19 00:10 Zofran Odt Administered 09/15/19 00:11 Dose 12 mg .ROUTE .STK-MED ONE - Re-Assessments/Exams Free Text/Narrative Re-Assessment/Exam: 09/15/19 04:54 Reports improved after fluids and benadryl. No emesis or BM during ED encounter. Departure - Departure Time of Disposition: 00:09 Disposition: Home, Self-Care 01 Condition: Good Clinical Impression: Gastroenteritis, Migraine - Discharge Information *PRESCRIPTION DRUG MONITORING PROGRAM REVIEWED*: No *COPY OF PRESCRIPTION DRUG MONITORING REPORT IN PATIENT JUSTIN: No Instructions: Viral Gastroenteritis, Adult, [id number], Recurrent Migraine Headache Referrals: PCP,None [Ordering Only Provider] - Forms: ED Department Discharge Additional Instructions: rest gradual increase in diet and activity zofran 4mg ODT one every 4 hours as needed for nausea encourage fluids, small amounts more frequently follow up if symptoms worsen Sepsis Event Note (ED) - Evaluation Sepsis Screening Result: No Definite Risk - Focused Exam Vital Signs: Vital Signs Temp Pulse Resp BP Pulse Ox 09/14/19 23:41 98.7 F 80 19 125/81 99 09/14/19 21:31 97.2 F 86 19 153/81 H 100
[2019-09-14 22:59] LABS: ANION GAP 14.2 mEq/L (7-13); CHLORIDE,CL 102 mmol/L (98-107); SODIUM,NA 139 mmol/L (136-145)
[2019-09-14] MEDS ORDERED: diphenhydrAMINE 50 MG/ML SDV IVPUSH ONE (23:26)
[2019-09-15] MEDS ORDERED: Ondansetron 4 MG Tab.DIS ONE (00:10)
== END 2019-09-15 00:18 | disposition home or self-care (01) ==
LOC: DL.ED 21:20
DX: G43.909 Migraine, unspecified, not intractable, without status migrainosus (principal); K52.9 Noninfective gastroenteritis and colitis, unspecified; E78.00 Pure hypercholesterolemia, unspecified; I10 Essential (primary) hypertension; J45.909 Unspecified asthma, uncomplicated; K21.9 Gastro-esophageal reflux disease without esophagitis; F31.9 Bipolar disorder, unspecified; F41.9 Anxiety disorder, unspecified; E11.9 Type 2 diabetes mellitus without complications; E66.9 Obesity, unspecified; Z68.42 Body mass index [BMI] 45.0-49.9, adult; Z88.6 Allergy status to analgesic agent; Z88.8 Allergy status to other drugs, medicaments and biological substances; Z88.0 Allergy status to penicillin; Z88.2 Allergy status to sulfonamides; Z91.030 Bee allergy status; Z79.4 Long term (current) use of insulin; Z79.899 Other long term (current) drug therapy
CPT/HCPCS: 36415; 80053; 81003; 82150; 83605; 83690; 84703; 85025; 96361; 96374; 96375; 99283; 99284; A9270; J1200; J2405; J7030

== ENCOUNTER 2019-10-12 21:22 | Emergency (ER) | payer MEDICAID ==
[2019-10-12] MEDS ORDERED: Acetaminophen/HYDROcodone 325-10 MG Tab PO ONE (21:23)
[2019-10-12] MEDS ORDERED: Ketorolac 30 MG/ML SDV IM ONE (22:12)
[2019-10-12] MEDS ORDERED: predniSONE 20 MG Tab PO ONE (22:12)
--- NOTE | 2019-10-12 22:15 | EDM.PDOC ---
ED HPI GENERAL MEDICAL PROBLEM - General Chief Complaint: Back Pain or Injury Stated Complaint: TWISTED BACK HURTS Time Seen by Provider: 10/12/19 22:11 Source of Information: Reports: Patient History Limitations: Reports: No Limitations - History of Present Illness INITIAL COMMENTS - FREE TEXT/NARRATIVE: Patient comes emergency department today from home with complaints of a lower back pain and injury. Patient relates 4 days ago she was working in the garden when she twisted her back. Since that time she has had severe bilateral lower mid back pain. Gets worse with movement. She has tried some Tylenol at home without much improvement. She denies any paresthesias down her leg. No loss of bowel or bladder. No saddle anesthesia. No change in the functionality or m ovement of her lower extremities. No hematuria dysuria or urinary frequency. No flank pain. No nausea no vomiting. No fever no chills. No abdominal pain. She did not fall and injure her back at all she was just using it more while working in the garden. Lower Back Pain Score (Numeric/FACES): 9 - Related Data Allergies Allergy/AdvReac Type Severity Reaction Status Date / Time acetaminophen [From Volga] Allergy Hives Verified 10/12/19 21:34 escitalopram [From Lexapro] Allergy Rash Verified 10/12/19 21:34 fluoxetine [From Prozac] Allergy Rash Verified 10/12/19 21:34 hydrocodone [From Volga] Allergy Hives Verified 10/12/19 21:34 ibuprofen Allergy Rash Verified 10/12/19 21:34 Penicillins Allergy Hives Verified 10/12/19 21:34 ranitidine Allergy Hives Verified 10/12/19 21:34 Sulfa (Sulfonamide Allergy Rash Verified 10/12/19 21:34 Antibiotics) zolpidem [From Ambien] AdvReac Nausea and Verified 10/12/19 21:34 Vomiting BEE STING Allergy Unknown Anaphylactic Uncoded 10/12/19 21:34 Shock metformin Allergy Hives Uncoded 10/12/19 21:34 Home Meds: Home Meds Albuterol Sulfate 2.5 mg IH Q4H PRN 11/28/18 [History] Albuterol [Proventil HFA] 2 puff INH Q4H PRN 11/28/18 [History] Cetirizine [ZyrTEC] 10 mg PO DAILY 11/28/18 [History] Cyanocobalamin (Vitamin B-12) [Vitamin B-12] 1,000 mcg PO .WEEKLY 11/28/18 [History] EPINEPHrine [Epipen] 0.3 mg IM ASDIRECTED PRN 11/28/18 [History] Fluticasone Propion/Salmeterol [Fluticasone-Salmeterol 250-50] 1 each IH DAILY 11/28/18 [History] Fluticasone Propionate [Flonase] 1 - 2 spray NASBOTH ASDIRECTED 11/28/18 [History] Lisinopril 40 mg PO DAILY 11/28/18 [History] Omeprazole 20 mg PO DAILY 11/28/18 [History] Ondansetron [Zofran ODT] 4 mg PO Q8H PRN 11/28/18 [History] Orphenadrine [Norflex] 100 mg PO BID PRN 11/28/18 [History] Prazosin HCl [Prazosin] 2 mg PO BEDTIME 11/28/18 [History] QUEtiapine [SEROquel] 50 mg PO DAILY 11/28/18 [History] QUEtiapine [SEROquel] 150 mg PO BEDTIME 11/28/18 [History] Sennosides/Docusate Sodium [Senna Plus Tablet] 1 each PO DAILY 11/28/18 [History] Solifenacin Succinate [Vesicare] 10 mg PO DAILY 11/28/18 [History] Topiramate 50 mg PO BID 11/28/18 [History] Vitamin D3 39436 Units Capsule 50,000 units PO DAILY 11/28/18 [History] amLODIPine Besylate [Amlodipine Besylate] 10 mg PO DAILY 11/28/18 [History] atorvaSTATin [Lipitor] 10 mg PO DAILY 11/28/18 [History] Multivitamin with Minerals [Multivitamins with Minerals] 1 tab PO DAILY 12/03/18 [History] Cranberry Fruit [Cranberry] 500 mg PO BID 12/07/18 [History] Insulin Aspart [NovoLOG] 20 unit SQ ASDIRECTED 01/18/19 [History] Insulin Glarg,Human.Rec.Analog [Lantus] 68 unit SUBCUT ASDIRECTED 01/18/19 [Hi story] Prazosin [Minpress] 1 mg PO ASDIRECTED 01/18/19 [History] Topiramate [Topamax] 50 mg PO BID 01/18/19 [History] Past Medical History - Past Health History Medical/Surgical History: Denies Medical/Surgical History HEENT History: Reports: None Cardiovascular History: Reports: High Cholesterol, Hypertension Respiratory History: Reports: Asthma Gastrointestinal History: Reports: None, Bowel Obstruction, GERD Genitourinary History: Reports: None G[employer] 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 Neurological History: Reports: Migraines Psychiatric History: Reports: Anxiety, Bipolar, Depression, PTSD Other Psychiatric History: pt unable to remember medications Endocrine/Metabolic History: Reports: Diabetes, Type II, Obesity/BMI 30+ Hematologic History: Reports: None Immunologic History: Reports: None Oncologic (Cancer) History: Reports: None Dermatologic History: Reports: None - Infectious Disease History Infectious Disease History: Reports: None - Past Surgical History Head Surgeries/Procedures: Reports: None GI Surgical History: Reports: Appendectomy Social & Family History - Family History Family Medical History: Noncontributory - Tobacco Use Smoking Status *Q: Never Smoker - Caffeine Use Caffeine Use: Reports: Tea Other Caffeine Use: AVERAGE OF 12 OZ TEA DURING THE DAY - Recreational Drug Use Recreational Drug Use: No ED ROS GENERAL - Review of Systems Review Of Systems: Comprehensive ROS is negative, except as noted in HPI. ED EXAM,LOWER BACK PAIN/INJURY - Physical Exam Exam: See Below Exam Limited By: No Limitations General Appearance: Alert, WD/WN, Moderate Distress Respiratory/Chest: No Respiratory Distress, Lungs Clear, No Accessory Muscle Use Cardiovascular: Normal Peripheral Pulses, Regular Rate, Rhythm GI/Abdominal: Normal Bowel Sounds, Soft, Non-Tender (Female) Exam: Deferred Rectal (Female) Exam: Deferred Back Exam: Normal Inspection, Full Range of Motion, Decreased Range of Motion, Muscle Spasm, Paraspinal Tenderness (Spinal tenderness in the L2-3 region bilaterally.). No: CVA Tenderness (L), CVA Tenderness (R), Vertebral Tenderness Extremities: Normal Inspection, Normal Range of Motion, Normal Capillary Refill Neurological: Alert, Normal Mood/Affect, Normal Dorsiflexion, Normal Plantar Flexion, Normal Reflexes, No Motor/Sensory Deficits, Oriented x 3 DTR - Lower Extremities: 2+: Knee (R), Knee (L), Ankle (R), Ankle (L) Psychiatric: Anxious Skin Exam: Warm, Dry, Intact, Normal Color Lymphatic: No Adenopathy Course - Vital Signs Last Recorded V/S: Last Vital Signs Temp 97.9 F 10/13/19 00:05 Pulse 85 10/13/19 00:05 Resp 20 10/13/19 00:05 BP 130/65 10/13/19 00:05 Pulse Ox 97 10/13/19 00:05 - Orders/Labs/Meds Orders: Active Orders 24 hr Category Date Time Status Peripheral IV Care [RC] . DIRECTED Care 10/12/19 23:23 Active CULTURE URINE [RM] Stat Lab 10/12/19 22:31 Received Peripheral IV Insertion Adult [OM.PC] Stat Oth 10/12/19 23:22 Ordered Labs: Laboratory Tests 10/12/19 10/12/19 10/12/19 Range/Units 22:31 22:31 23:40 WBC 10.2 H (5.0-10.0) 10^3/uL RBC 4.87 (4.2-5.4) 10^6/uL Hgb 14.2 (12.0-16.0) g/dL Hct 41.1 (37.0-47.0) % MCV 84.4 (80-100) fL MCH 29.2 (27.0-34.0) pg MCHC 34.5 (33.0-35.0) g/dL Plt Count 299 (150-450) 10^3/uL Neut % (Auto) 57.9 (42.2-75.2) % Lymph % (Auto) 32.6 (20.5-50.1) % [place] % (Auto) 6.6 (2-8) % Eos % (Auto) 2.6 (1.0-3.0) % Baso % (Auto) 0.3 (0.0-1.0) % Sodium (136-145) mmol/L Potassium (3.5-5.1) mmol/L Chloride (98-107) mmol/L Carbon Dioxide (21-32) mmol/L Anion Gap (7-13) mEq/L BUN (7-18) mg/dL Creatinine (0.55-1.02) mg/dL Est Cr Clr Drug Dosing mL/min Estimated GFR (MDRD) BUN/Creatinine Ratio (No establ ref range) Glucose (74-99) mg/dL Calcium (8.5-10.1) mg/dL Total Bilirubin (0.2-1.0) mg/dL AST (15-37) U/L ALT (14-59) U/L Alkaline Phosphatase (46-116) U/L C-Reactive Protein (0.0-0.9) mg/dL Total Protein (6.4-8.2) g/dL Albumin (3.4-5.0) g/dL Globulin Albumin/Globulin Ratio Urine Color Dark yellow (YELLOW) Urine Appearance Slightly cloudy (CLEAR) Urine pH 5.0 (5.0-9.0) Ur Specific Viola >= 1.030 (1.005-1.030) Urine Protein 30 H (NEGATIVE) Urine Glucose (UA) 100 H (NEGATIVE) Urine Ketones Negative (NEGATIVE) Urine Occult Blood Moderate H (NEGATIVE) Urine Nitrite Negative (NEGATIVE) Urine Bilirubin Negative (NEGATIVE) Urine Urobilinogen 0.2 (0.2-1.0) mg/dL Ur Leukocyte Esterase Small H (NEGATIVE) Urine RBC 0-5 /HPF Urine WBC 10-20 H (0-5/HPF) /HPF Ur Epithelial Cells Moderate H (NOT SEEN) /HPF Calcium Oxalate Crystal Moderate H (NOT SEEN) /HPF Amorphous Sediment Few (NOT SEEN) /HPF Urine Bacteria Few (0-FEW/HPF) /HPF Urine Mucus Rare (NOT SEEN) /LPF Urine Opiates Screen Negative (NEGATIVE) Ur Oxycodone Screen Negative (NEGATIVE) Urine Methadone Screen Negative (NEGATIVE) Ur Barbiturates Screen Negative (NEGATIVE) U Tricyclic Antidepress Positive H (NEGATIVE) Ur Phencyclidine Scrn Negative (NEGATIVE) Ur Amphetamine Screen Negative (NEGATIVE) U Methamphetamines Scrn Negative (NEGATIVE) Urine MDMA Screen Negative (NEGATIVE) U Benzodiazepines Scrn Negative (NEGATIVE) Urine Cocaine Screen Negative (NEGATIVE) U Marijuana (THC) Screen Negative (NEGATIVE) 10/12/19 Range/Units 23:40 WBC (5.0-10.0) 10^3/uL RBC (4.2-5.4) 10^6/uL Hgb (12.0-16.0) g/dL Hct (37.0-47.0) % MCV (80-100) fL MCH (27.0-34.0) pg MCHC (33.0-35.0) g/dL Plt Count (150-450) 10^3/uL Neut % (Auto) (42.2-75.2) % Lymph % (Auto) (20.5-50.1) % [place] % (Auto) (2-8) % Eos % (Auto) (1.0-3.0) % Baso % (Auto) (0.0-1.0) % Sodium 138 (136-145) mmol/L Potassium 3.6 (3.5-5.1) mmol/L Chloride 103 (98-107) mmol/L Carbon Dioxide 26 (21-32) mmol/L Anion Gap 12.6 (7-13) mEq/L BUN 11 (7-18) mg/dL Creatinine 0.73 (0.55-1.02) mg/dL Est Cr Clr Drug Dosing 79.62 mL/min Estimated GFR (MDRD) > 60 BUN/Creatinine Ratio 15.1 (No establ ref range) Glucose 182 H (74-99) mg/dL Calcium 8.4 L (8.5-10.1) mg/dL Total Bilirubin 0.4 (0.2-1.0) mg/dL AST 44 H (15-37) U/L ALT 64 H (14-59) U/L Alkaline Phosphatase 96 (46-116) U/L C-Reactive Protein 1.4 H (0.0-0.9) mg/dL Total Protein 7.5 (6.4-8.2) g/dL Albumin 3.8 (3.4-5.0) g/dL Globulin 3.7 Albumin/Globulin Ratio 1.0 Urine Color (YELLOW) Urine Appearance (CLEAR) Urine pH (5.0-9.0) Ur Specific Viola (1.005-1.030) Urine Protein (NEGATIVE) Urine Glucose (UA) (NEGATIVE) Urine Ketones (NEGATIVE) Urine Occult Blood (NEGATIVE) Urine Nitrite (NEGATIVE) Urine Bilirubin (NEGATIVE) Urine Urobilinogen (0.2-1.0) mg/dL Ur Leukocyte Esterase (NEGATIVE) Urine RBC /HPF Urine WBC (0-5/HPF) /HPF Ur Epithelial Cells (NOT SEEN) /HPF Calcium Oxalate Crystal (NOT SEEN) /HPF Amorphous Sediment (NOT SEEN) /HPF Urine Bacteria (0-FEW/HPF) /HPF Urine Mucus (NOT SEEN) /LPF Urine Opiates Screen (NEGATIVE) Ur Oxycodone Screen (NEGATIVE) Urine Methadone Screen (NEGATIVE) Ur Barbiturates Screen (NEGATIVE) U Tricyclic Antidepress (NEGATIVE) Ur Phencyclidine Scrn (NEGATIVE) Ur Amphetamine Screen (NEGATIVE) U Methamphetamines Scrn (NEGATIVE) Urine MDMA Screen (NEGATIVE) U Benzodiazepines Scrn (NEGATIVE) Urine Cocaine Screen (NEGATIVE) U Marijuana (THC) Screen (NEGATIVE) Meds: Medications Discontinued Medications Generic Name Dose Route Start Last Admin Trade Name Freq PRN Reason Stop Dose Admin Hydrocodone Bitart/Acetaminophen Confirm 10/13/19 01:02 10/13/19 01:10 Volga 325-10 Mg Administered 10/13/19 01:03 Not Given Dose 2 tab .ROUTE .STK-MED ONE Cephalexin 500 mg 10/12/19 23:18 10/13/19 00:04 Keflex PO 10/12/19 23:19 Not Given ONETIME ONE Diphenhydramine HCl 25 mg 10/12/19 23:23 10/12/19 23:55 Benadryl IVPUSH 10/12/19 23:24 25 mg ONETIME ONE Administration Lactated Ringer's 1,000 mls @ 1,000 mls/hr 10/12/19 23:23 10/13/19 00:01 Ringers, Lactated IV 10/13/19 00:22 1,000 mls/hr .BOLUS ONE Administration Ceftriaxone Sodium 2 gm/ 100 mls @ 200 mls/hr 10/12/19 23:23 10/13/19 00:02 Sodium Chloride IV 10/12/19 23:52 200 mls/hr ONETIME ONE Administration Ketorolac Tromethamine 30 mg 10/12/19 22:12 10/12/19 22:34 Toradol IM 10/12/19 22:13 30 mg ONETIME ONE Administration Morphine Sulfate 4 mg 10/12/19 23:23 10/12/19 23:58 Morphine IVPUSH 10/12/19 23:24 4 mg ONETIME ONE Administration Orphenadrine Citrate 60 mg 10/12/19 22:12 10/12/19 22:35 Norflex IM 10/12/19 22:13 60 mg ONETIME ONE Administration Prednisone 40 mg 10/12/19 22:12 10/12/19 22:33 Prednisone PO 10/12/19 22:13 40 mg ONETIME ONE Administration Sodium Chloride 10 ml 10/12/19 23:23 10/13/19 00:01 Saline Flush FLUSH 10 ml ASDIRECTED PRN Administration Keep Vein Open - Radiology Interpretation Free Text/Narrative:: CT abdomen pelvis per radiology shows no acute abnormality. Fatty infiltration of the liver. No urinary tract stone or obstruction. Although when I reviewed this CT scan myself extemporaneously I really question if there is not a kidney stone that is within the urinary bladder. This was not commented on by the radiologist but it is quite clearly in the urinary bladder when I reviewed the CT scan. This could be consistent with her colicky type pain as well but she is clearly passed the stone at this time. - Re-Assessments/Exams Free Text/Narrative Re-Assessment/Exam: 10/13/19 01:37 The patient was given ketorolac 30 mg IM as well as orphenadrine 60 mg IM. Urinalysis comes back with blood and concern for an infection as well as calcium oxalate crystals. I initially thought that this is to be more musculoskeletal in nature with the report of the injury happening when she was working in the garden. Although I wonder if she does not have a urinary tract infection and/or an infected obstructed kidney stone. Was established she was given more pain medication as well as a fluid bolus. A dose of Rocephin through the IV as well as pain medicine. 10/13/19 01:38 CT scan abdomen pelvis is negative for any stones or signs of pyelonephritis per radiology although I have concerns for a stone that is clearly within the urinary bladder. No signs of hydronephrosis or hydroureteronephrosis. Or any obstructing stone. We will treat her for urinary tract infection as well as a passed kidney stone. Her pain was much improved after the above therapy. Her urine will be cultured and followed. She is comfortable with the discharge plan her questions are answered. Departure - Departure Time of Disposition: 00:02 Disposition: Home, Self-Care 01 Clinical Impression: UTI, Urinary tract infectious disease, Kidney stone - Discharge Information Instructions: Antibiotic Medicine, Adult, [id number], Renal Colic, [id number], Kidney Stones, [id number], Pain Medicine Instructions, [id number] Referrals: Cayetano Rose, TITLE MANAGER [Primary Care Provider] - Forms: ED Department Discharge Additional Instructions: Tylenol and or Ibuprofen as needed for pain. Lots of fluids over the next few days. Cephalexin 1 tablet 4 times a day for the next 10 days. RX given to the patient. Zofran 1 tablet every 6 hrs as needed for nausea. RX given to the patient. If pain not controlled with above [place]ga 1 tablet every hrs hours with food as needed for pain. Caution sedation. 2 dispensed from ED stock. Return to the ED if new or worsening symptoms. Follow up with PCP in the next 4-6 days if not improving sooner if worse. Sepsis Event Note (ED) - Evaluation Sepsis Screening Result: No Definite Risk - Focused Exam Vital Signs: Vital Signs Temp Pulse Resp BP Pulse Ox 10/13/19 00:05 97.9 F 85 20 130/65 97 10/12/19 21:38 97.2 F 111 H 20 144/96 H 98 - My Orders Last 24 Hours: My Active Orders 10/12/19 22:31 CULTURE URINE [RM] Stat 10/12/19 23:22 Peripheral IV Insertion Adult [OM.PC] Stat 10/12/19 23:23 Peripheral IV Care [RC] . DIRECTED - Assessment/Plan Last 24 Hours: My Active Orders 10/12/19 22:31 CULTURE URINE [RM] Stat 10/12/19 23:22 Peripheral IV Insertion Adult [OM.PC] Stat 10/12/19 23:23 Peripheral IV Care [RC] . DIRECTED Assessment:: UTI Passed kidney stone. Plan: Tylenol and or Ibuprofen as needed for pain. Lots of fluids over the next few days. Cephalexin 1 tablet 4 times a day for the next 10 days. RX given to the patient. Zofran 1 tablet every 6 hrs as needed for nausea. RX given to the patient. If pain not controlled with above [place] 1 tablet every hrs hours with food as needed for pain. Caution sedation. 2 dispensed from ED stock. Return to the ED if new or worsening symptoms. Follow up with PCP in the next 4-6 days if not improving sooner if worse.
[2019-10-12] MEDS ORDERED: Cephalexin 500 MG Cap PO ONE (23:18)
[2019-10-12] MEDS ORDERED: Morphine 4 MG/ML VIAL IVPUSH ONE (23:23)
[2019-10-12] MEDS ORDERED: Sodium Chloride 0.9% 10 ML Syringe FLUSH PRN (23:23)
[2019-10-12] MEDS ORDERED: diphenhydrAMINE 50 MG/ML SDV IVPUSH ONE (23:23)
[2019-10-12] MEDS ORDERED: Lactated Ringers 1,000 ML IV ONE (23:23)
[2019-10-12] MEDS ORDERED: cefTRIAXone 2 GM in Sodium Chloride 0.9% 100 ML IV ONE (23:23)
--- NOTE | 2019-10-12 23:49 | CT ---
PROCEDURE INFORMATION: Exam: CT Abdomen And Pelvis Without Contrast Exam date and time: 10/12/2019 11:24 PM Age: 39 years old Clinical indication: Abdominal pain; Generalized; Prior surgery; Surgery date: 6+ months; Surgery type: Appendix removed; Additional info: ? Kidney stone, pain across the back bilateral TECHNIQUE: Imaging protocol: Computed tomography of the abdomen and pelvis without contrast. Radiation optimization: All CT scans at this facility use at least one of these dose optimization techniques: automated exposure control; mA and/or kV adjustment per patient size (includes targeted exams where dose is matched to clinical indication); or iterative reconstruction. COMPARISON: CT Abdomen Pelvis w Cont 02/27/2019 9:42 PM FINDINGS: Liver: Diffuse fatty infiltration of the liver. Gallbladder and bile ducts: Normal. No calcified stones. No ductal dilation. Pancreas: Normal. No ductal dilation. Spleen: Normal. No splenomegaly. Adrenals: Normal. No mass. Kidneys and ureters: Normal. No hydronephrosis. Stomach and bowel: Unremarkable. No obstruction. No mucosal thickening. Appendix: Status post appendectomy. Intraperitoneal space: Unremarkable. No free air. No significant fluid collection. Vasculature: Unremarkable. No abdominal aortic aneurysm. Lymph nodes: Unremarkable. No enlarged lymph nodes. Bladder: Unremarkable as visualized. Reproductive: Unremarkable as visualized. Bones/joints: Unremarkable. No acute fracture. Soft tissues: Unremarkable. IMPRESSION: 1. No acute abnormality. 2. Fatty infiltration of the liver. 3. No urinary tract stone or obstruction.
[2019-10-13 00:09] LABS: ANION GAP 12.6 mEq/L (7-13); CHLORIDE,CL 103 mmol/L (98-107); SODIUM,NA 138 mmol/L (136-145)
[2019-10-13] MEDS ORDERED: Acetaminophen/HYDROcodone 325-10 MG Tab ONE (01:02)
== END 2019-10-13 01:08 | disposition home or self-care (01) ==
LOC: DL.ED 21:22
DX: N39.0 Urinary tract infection, site not specified (principal); N20.0 Calculus of kidney; I10 Essential (primary) hypertension; E78.00 Pure hypercholesterolemia, unspecified; J45.909 Unspecified asthma, uncomplicated; K21.9 Gastro-esophageal reflux disease without esophagitis; E11.9 Type 2 diabetes mellitus without complications; E66.9 Obesity, unspecified; Z88.1 Allergy status to other antibiotic agents; Z88.0 Allergy status to penicillin; Z88.8 Allergy status to other drugs, medicaments and biological substances; Z91.030 Bee allergy status; Z88.2 Allergy status to sulfonamides; Z79.899 Other long term (current) drug therapy; Z68.42 Body mass index [BMI] 45.0-49.9, adult
CPT/HCPCS: 36415; 74176; 80053; 80305; 81001; 85025; 86140; 87086; 87088; 87186; 96365; 96372; 96375; 99284; A9270; J0696; J1200; J1885; J2270; J2360; J7050; J7120; J7512

== ENCOUNTER 2019-11-15 20:25 | Emergency (ER) | payer MEDICAID ==
--- NOTE | 2019-11-15 20:35 | EDM.PDOC ---
ED HPI GENERAL MEDICAL PROBLEM - General Chief Complaint: Upper Extremity Injury/Pain Stated Complaint: RT HAND PAIN Time Seen by Provider: 11/15/19 20:34 Source of Information: Reports: Patient, RN, RN Notes Reviewed History Limitations: Reports: No Limitations - History of Present Illness INITIAL COMMENTS - FREE TEXT/NARRATIVE: Pt presents to ER with c/o right wrist pain. States she was camping and fell in a pothole. States she injured the wrist 2 days ago. She states she has not taken anything for the pain. Patient states she just got home from camping and put an GEORGETTE wrap on it without any relief. Patient states she was going to try to go to the clinic but it was closed. Patient is able to move the fingers minimally without pain. Onset: Sudden Onset Date: 11/13/19 Duration: Constant Location: Reports: Upper Extremity, Right Quality: Reports: Throbbing Severity: Moderate Improves with: Reports: None Worsens with: Reports: None Right Wrist Pain Score (Numeric/FACES): 9 - Related Data Allergies Allergy/AdvReac Type Severity Reaction Status Date / Time acetaminophen [From [place]] Allergy Hives Verified 10/12/19 21:34 escitalopram [From Lexapro] Allergy Rash Verified 10/12/19 21:34 fluoxetine [From Prozac] Allergy Rash Verified 10/12/19 21:34 hydrocodone [From [place]] Allergy Hives Verified 10/12/19 21:34 ibuprofen Allergy Rash Verified 10/12/19 21:34 Penicillins Allergy Hives Verified 10/12/19 21:34 ranitidine Allergy Hives Verified 10/12/19 21:34 Sulfa (Sulfonamide Allergy Rash Verified 10/12/19 21:34 Antibiotics) zolpidem [From Ambien] AdvReac Nausea and Verified 10/12/19 21:34 Vomiting BEE STING Allergy Unknown Anaphylactic Uncoded 10/12/19 21:34 Shock metformin Allergy Hives Uncoded 10/12/19 21:34 Home Meds: Home Meds Albuterol Sulfate 2.5 mg IH Q4H PRN 11/28/18 [History] Albuterol [Proventil HFA] 2 puff INH Q4H PRN 11/28/18 [History] Cetirizine [ZyrTEC] 10 mg PO DAILY 11/28/18 [History] Cyanocobalamin (Vitamin B-12) [Vitamin B-12] 1,000 mcg PO .WEEKLY 11/28/18 [History] EPINEPHrine [Epipen] 0.3 mg IM ASDIRECTED PRN 11/28/18 [History] Fluticasone Propion/Salmeterol [Fluticasone-Salmeterol 250-50] 1 each IH DAILY 11/28/18 [History] Fluticasone Propionate [Flonase] 1 - 2 spray NASBOTH ASDIRECTED 11/28/18 [History] Lisinopril 40 mg PO DAILY 11/28/18 [History] Omeprazole 20 mg PO DAILY 11/28/18 [History] Ondansetron [Zofran ODT] 4 mg PO Q8H PRN 11/28/18 [History] Orphenadrine [Norflex] 100 mg PO BID PRN 11/28/18 [History] Prazosin HCl [Prazosin] 2 mg PO BEDTIME 11/28/18 [History] QUEtiapine [SEROquel] 50 mg PO DAILY 11/28/18 [History] QUEtiapine [SEROquel] 150 mg PO BEDTIME 11/28/18 [History] Sennosides/Docusate Sodium [Senna Plus Tablet] 1 each PO DAILY 11/28/18 [History] Solifenacin Succinate [Vesicare] 10 mg PO DAILY 11/28/18 [History] Topiramate 50 mg PO BID 11/28/18 [History] Vitamin D3 28935 Units Capsule 50,000 units PO DAILY 11/28/18 [History] amLODIPine Besylate [Amlodipine Besylate] 10 mg PO DAILY 11/28/18 [History] atorvaSTATin [Lipitor] 10 mg PO DAILY 11/28/18 [History] Multivitamin with Minerals [Multivitamins with Minerals] 1 tab PO DAILY 12/03/18 [History] Cranberry Fruit [Cranberry] 500 mg PO BID 12/07/18 [History] Insulin Aspart [NovoLOG] 20 unit SQ ASDIRECTED 01/18/19 [History] Insulin Glarg,Human.Rec.Analog [Lantus] 68 unit SUBCUT ASDIRECTED 01/18/19 [History] Prazosin [Minpress] 1 mg PO ASDIRECTED 01/18/19 [History] Topiramate [Topamax] 50 mg PO BID 01/18/19 [History] Past Medical History - Past Health History Medical/Surgical History: Denies Medical/Surgical History HEENT History: Reports: None Cardiovascular History: Reports: High Cholesterol, Hypertension Respiratory History: Reports: Asthma Gastrointestinal History: Reports: None, Bowel Obstruction, GERD Genitourinary History: Reports: None ROUTE SERVICE MANAGER History: Reports: None, , Other (See Below) Other ROUTE SERVICE MANAGER History: tubal ligation Musculoskeletal History: Reports: Other (See Below) Other Musculoskeletal History: Tendonitis, carpel tunnel alfonso. Neurological History: Reports: Migraines Psychiatric History: Reports: Anxiety, Bipolar, Depression, PTSD Other Psychiatric History: pt unable to remember medications Endocrine/Metabolic History: Reports: Diabetes, Type II, Obesity/BMI 30+ Hematologic History: Reports: None Immunologic History: Reports: None Oncologic (Cancer) History: Reports: None Dermatologic History: Reports: None - Infectious Disease History Infectious Disease History: Reports: None - Past Surgical History Head Surgeries/Procedures: Reports: None GI Surgical History: Reports: Appendectomy Social & Family History - Family History Family Medical History: Noncontributory - Caffeine Use Caffeine Use: Reports: Tea Other Caffeine Use: AVERAGE OF 12 OZ TEA DURING THE DAY Review of Systems - Review of Systems Review Of Systems: Comprehensive ROS is negative, except as noted in HPI. ED EXAM, GENERAL - Physical Exam Exam: See Below Exam Limited By: No Limitations General Appearance: Alert, WD/WN, No Apparent Distress Eye Exam: Bilateral Eye: EOMI, Normal Inspection Ears: Normal External Exam, Hearing Grossly Normal Nose: Normal Inspection Throat/Mouth: Normal Inspection, Normal Voice, No Airway Compromise Head: Atraumatic, Normocephalic Neck: Normal Inspection, Supple, Non-Tender, Full Range of Motion Respiratory/Chest: No Respiratory Distress, Lungs Clear, Normal Breath Sounds, No Accessory Muscle Use, Chest Non-Tender Cardiovascular: Normal Peripheral Pulses, Regular Rate, Rhythm, No Edema, No Gallop, No JVD, No Murmur, No Rub Peripheral Pulses: 2+: Radial (L), Radial (R) GI/Abdominal: Normal Bowel Sounds, Soft, Non-Tender, No Organomegaly, No Distention, No Abnormal Bruit, No Mass, Pelvis Stable (Female) Exam: Deferred Rectal (Female) Exam: Deferred Back Exam: Normal Inspection, Full Range of Motion, NT Extremities: Normal Inspection, No Pedal Edema, Normal Capillary Refill, Arm Pain (right wrist), Limited Range of Motion (right wrist) Neurological: Alert, Oriented, CN II-XII Intact, Normal Cognition, Normal Gait, Normal Reflexes, No Motor/Sensory Deficits Psychiatric: Normal Affect, Normal Mood Skin Exam: Warm, Dry, Intact, Normal Color, No Rash Lymphatic: No Adenopathy Course - Vital Signs Last Recorded V/S: Last Vital Signs Temp 97.5 F 11/15/19 20:30 Pulse 103 H 11/15/19 20:30 Resp 20 11/15/19 20:30 BP 132/37 L 11/15/19 20:30 Pulse Ox 97 11/15/19 20:30 - Radiology Interpretation Free Text/Narrative:: Right wrist xray: PROCEDURE INFORMATION: Exam: XR Right Wrist Exam date and time: 11/15/2019 8:34 PM Age: 39 years old Clinical indication: Pain; Wrist; Right; Additional info: Fall x2 days ago, pain TECHNIQUE: Imaging protocol: XR Right wrist. Views: 3 or more views. COMPARISON: CR Hand 2V Rt 04/23/2019 11:16 AM FINDINGS: Bones/joints: Normal. Soft tissues: Normal. IMPRESSION: No acute findings. Thank you for allowing us to participate in the care of your patient. Dictated and Authenticated by: Alvaro Guerra MD 11/15/2019 8:55 PM Central Time ([place] & [place]) see rad report Departure - Departure Time of Disposition: 20:59 Disposition: Home, Self-Care 01 Condition: Good Clinical Impression: Sprain of right wrist Qualifiers: Encounter type: initial encounter Qualified Code(s): S63.501A - Unspecified sprain of right wrist, initial encounter - Discharge Information *PRESCRIPTION DRUG MONITORING PROGRAM REVIEWED*: No *COPY OF PRESCRIPTION DRUG MONITORING REPORT IN PATIENT JUSTIN: No Instructions: Wrist Sprain, Adult, How to Use Cold Therapy, [id number], Cast or Splint Care, Adult, [id number], Elastic Bandage and RICE Therapy Forms: ED Department Discharge Additional Instructions: Wear wrist brace while up and around for the day, may take it off at night if more comfortable Elevate and ice the wrist when possible May use what works best for you for pain If no improvement in 2 weeks follow-up with your primary care provider Sepsis Event Note (ED) - Evaluation Sepsis Screening Result: No Definite Risk - Focused Exam Vital Signs: Vital Signs Temp Pulse Resp BP Pulse Ox 11/15/19 20:30 97.5 F 103 H 20 132/37 L 97
--- NOTE | 2019-11-15 20:55 | CR ---
PROCEDURE INFORMATION: Exam: XR Right Wrist Exam date and time: 11/15/2019 8:34 PM Age: 39 years old Clinical indication: Pain; Wrist; Right; Additional info: Fall x2 days ago, pain TECHNIQUE: Imaging protocol: XR Right wrist. Views: 3 or more views. COMPARISON: CR Hand 2V Rt 04/23/2019 11:16 AM FINDINGS: Bones/joints: Normal. Soft tissues: Normal. IMPRESSION: No acute findings.
== END 2019-11-15 21:11 | disposition home or self-care (01) ==
LOC: DL.ED 20:25
DX: S63.501A Unspecified sprain of right wrist, initial encounter (principal); I10 Essential (primary) hypertension; E78.00 Pure hypercholesterolemia, unspecified; J45.909 Unspecified asthma, uncomplicated; K21.9 Gastro-esophageal reflux disease without esophagitis; F41.9 Anxiety disorder, unspecified; F31.9 Bipolar disorder, unspecified; E11.9 Type 2 diabetes mellitus without complications; E66.9 Obesity, unspecified; Z88.6 Allergy status to analgesic agent; Z88.1 Allergy status to other antibiotic agents; Z88.5 Allergy status to narcotic agent; Z88.0 Allergy status to penicillin; Z88.2 Allergy status to sulfonamides; Z88.8 Allergy status to other drugs, medicaments and biological substances; Z91.030 Bee allergy status; Z79.899 Other long term (current) drug therapy; Z79.4 Long term (current) use of insulin; W01.0XXA Fall on same level from slipping, tripping and stumbling without subsequent striking against object, initial encounter
CPT/HCPCS: 29125; 73110-RT; 99282; 99283-25

== ENCOUNTER 2019-11-29 23:00 | Emergency (ER) | payer MEDICAID ==
[2019-11-29] MEDS ORDERED: Ondansetron 4 MG Tab.DIS PO ONE (23:24)
[2019-11-29] MEDS ORDERED: Clindamycin HCl 150 MG Cap PO ONE (23:25)
[2019-11-29] MEDS ORDERED: Ibuprofen 600 MG Tab PO ONE (23:26)
--- NOTE | 2019-11-29 23:32 | EDM.PDOC ---
ED HPI GENERAL MEDICAL PROBLEM - General Chief Complaint: Skin Complaint Stated Complaint: SORES ON BEHIND. Time Seen by Provider: 11/29/19 23:20 Source of Information: Reports: Patient, RN, RN Notes Reviewed - History of Present Illness INITIAL COMMENTS - FREE TEXT/NARRATIVE: Patient presents to ER with complaint of sores on the left buttock that are causing her significant pain as well as nausea. Patient states the sores have been there for 3 to 4 days, and she has been seen in the clinic by Juan Carlos Rose. She states no cultures have been done and she was to follow-up in the clinic on Thursday. Patient states the pain is so intense that she cannot eat and gets nauseated. Patient admits to being a type 2 diabetes on insulin. She denies sitting for long periods of time, and states she does not feel it is a decubitus ulcer. Patient denies any use of heating pad, denies hansen to the area. Patient denies fever chills. Onset: Gradual Buttock Pain Score (Numeric/FACES): 9 - Related Data Allergies Allergy/AdvReac Type Severity Reaction Status Date / Time acetaminophen [From [place]] Allergy Hives Verified 11/29/19 23:09 escitalopram [From Lexapro] Allergy Rash Verified 11/29/19 23:09 fluoxetine [From Prozac] Allergy Rash Verified 11/29/19 23:09 hydrocodone [From [place]] Allergy Hives Verified 11/29/19 23:09 ibuprofen Allergy Rash Verified 11/29/19 23:09 Penicillins Allergy Hives Verified 11/29/19 23:09 ranitidine Allergy Hives Verified 11/29/19 23:09 Sulfa (Sulfonamide Allergy Rash Verified 11/29/19 23:09 Antibiotics) zolpidem [From Ambien] AdvReac Nausea and Verified 11/29/19 23:09 Vomiting BEE STING Allergy Unknown Anaphylactic Uncoded 11/29/19 23:09 Shock metformin Allergy Hives Uncoded 11/29/19 23:09 Home Meds: Home Meds Albuterol Sulfate 2.5 mg IH Q4H PRN 11/28/18 [History] Albuterol [Proventil HFA] 2 puff INH Q4H PRN 11/28/18 [History] Cetirizine [ZyrTEC] 10 mg PO DAILY 11/28/18 [History] Cyanocobalamin (Vitamin B-12) [Vitamin B-12] 1,000 mcg PO .WEEKLY 11/28/18 [History] EPINEPHrine [Epipen] 0.3 mg IM ASDIRECTED PRN 11/28/18 [History] Fluticasone Propion/Salmeterol [Fluticasone-Salmeterol 250-50] 1 each IH DAILY 11/28/18 [History] Fluticasone Propionate [Flonase] 1 - 2 spray NASBOTH ASDIRECTED 11/28/18 [History] Lisinopril 40 mg PO DAILY 11/28/18 [History] Omeprazole 20 mg PO DAILY 11/28/18 [History] Ondansetron [Zofran ODT] 4 mg PO Q8H PRN 11/28/18 [History] Orphenadrine [Norflex] 100 mg PO BID PRN 11/28/18 [History] Prazosin HCl [Prazosin] 2 mg PO BEDTIME 11/28/18 [History] QUEtiapine [SEROquel] 50 mg PO DAILY 11/28/18 [History] QUEtiapine [SEROquel] 150 mg PO BEDTIME 11/28/18 [History] Sennosides/Docusate Sodium [Senna Plus Tablet] 1 each PO DAILY 11/28/18 [History] Solifenacin Succinate [Vesicare] 10 mg PO DAILY 11/28/18 [History] Topiramate 50 mg PO BID 11/28/18 [History] Vitamin D3 26085 Units Capsule 50,000 units PO DAILY 11/28/18 [History] amLODIPine Besylate [Amlodipine Besylate] 10 mg PO DAILY 11/28/18 [History] atorvaSTATin [Lipitor] 10 mg PO DAILY 11/28/18 [History] Multivitamin with Minerals [Multivitamins with Minerals] 1 tab PO DAILY 12/03/18 [History] Cranberry Fruit [Cranberry] 500 mg PO BID 12/07/18 [History] Insulin Aspart [NovoLOG] 20 unit SQ ASDIRECTED 01/18/19 [History] Insulin Glarg,Human.Rec.Analog [Lantus] 68 unit SUBCUT ASDIRECTED 01/18/19 [History] Prazosin [Minpress] 1 mg PO ASDIRECTED 01/18/19 [History] Topiramate [Topamax] 50 mg PO BID 01/18/19 [History] Past Medical History - Past Health History Medical/Surgical History: Denies Medical/Surgical History HEENT History: Reports: None Cardiovascular History: Reports: High Cholesterol, Hypertension Respiratory History: Reports: Asthma Gastrointestinal History: Reports: None, Bowel Obstruction, GERD Genitourinary History: Reports: None ACTIVITY AID History: Reports: None, , Other (See Below) Other ACTIVITY AID History: tubal ligation Musculoskeletal History: Reports: Other (See Below) Other Musculoskeletal History: Tendonitis, carpel tunnel alfonso. Neurological History: Reports: Migraines Psychiatric History: Reports: Anxiety, Bipolar, Depression, PTSD Other Psychiatric History: pt unable to remember medications Endocrine/Metabolic History: Reports: Diabetes, Type II, Obesity/BMI 30+ Hematologic History: Reports: None Immunologic History: Reports: None Oncologic (Cancer) History: Reports: None Dermatologic History: Reports: None - Infectious Disease History Infectious Disease History: Reports: None - Past Surgical History Head Surgeries/Procedures: Reports: None GI Surgical History: Reports: Appendectomy Social & Family History - Family History Family Medical History: Noncontributory - Tobacco Use Smoking Status *Q: Never Smoker - Caffeine Use Caffeine Use: Reports: Tea Other Caffeine Use: AVERAGE OF 12 OZ TEA DURING THE DAY - Recreational Drug Use Recreational Drug Use: No ED ROS GENERAL - Review of Systems Review Of Systems: Comprehensive ROS is negative, except as noted in HPI. ED EXAM, SKIN/RASH Exam: See Below Exam Limited By: No Limitations General Appearance: Alert, WD/WN, Moderate Distress, Obese Eye Exam: Bilateral Eye: EOMI, Normal Inspection Ears: Normal External Exam, Hearing Grossly Normal Nose: Normal Inspection Throat/Mouth: Normal Inspection, Normal Voice, No Airway Compromise Head: Atraumatic, Normocephalic Neck: Normal Inspection, Supple, Non-Tender, Full Range of Motion Respiratory/Chest: No Respiratory Distress, Lungs Clear, Normal Breath Sounds, No Accessory Muscle Use, Chest Non-Tender Cardiovascular: Normal Peripheral Pulses, Regular Rate, Rhythm, No Edema, No Gallop, No JVD, No Murmur, No Rub Peripheral Pulses: 2+: Radial (L), Radial (R) GI/Abdominal: Normal Bowel Sounds, Soft, Non-Tender (Female) Exam: Deferred Rectal (Female) Exam: Deferred Back Exam: Normal Inspection, Full Range of Motion, NT Extremities: Normal Inspection, Normal Range of Motion, Non-Tender, No Pedal Edema, Normal Capillary Refill Neurological: Alert, Oriented, CN II-XII Intact, Normal Cognition, Normal Gait, Normal Reflexes, No Motor/Sensory Deficits Psychiatric: Normal Affect, Normal Mood Skin: Warm, Dry, Wound/Incision (Decubitus appearing sores to the left buttock, no drainage noted. Minimal Erythema. ) Location, Skin: Other (Left buttock) Associated features: Tenderness. No: Warmth, Swelling, Induration Lymphatic: No Adenopathy Course - Vital Signs Last Recorded V/S: Last Vital Signs Temp 96.3 F L 11/29/19 23:05 Pulse 103 H 11/29/19 23:05 Resp 16 11/29/19 23:05 BP 138/56 L 11/29/19 23:05 Pulse Ox 96 11/29/19 23:05 - Orders/Labs/Meds Orders: Active Orders 24 hr Category Date Time Status CULTURE WOUND [RM] Urgent Lab 11/29/19 23:14 Received Meds: Medications Discontinued Medications Generic Name Dose Route Start Last Admin Trade Name Freq PRN Reason Stop Dose Admin Clindamycin HCl 600 mg 11/29/19 23:25 11/29/19 23:33 Cleocin PO 11/29/19 23:26 600 mg ONETIME ONE Administration Ibuprofen 600 mg 11/29/19 23:26 11/29/19 23:34 Motrin PO 11/29/19 23:27 600 mg ONETIME ONE Administration Ondansetron HCl 4 mg 11/29/19 23:24 11/29/19 23:33 Zofran Odt PO 11/29/19 23:25 4 mg ONETIME ONE Administration Departure - Departure Time of Disposition: 23:55 Disposition: Home, Self-Care 01 Condition: Fair Clinical Impression: Broken skin, Diabetic ulcer of buttock - Discharge Information *PRESCRIPTION DRUG MONITORING PROGRAM REVIEWED*: No *COPY OF PRESCRIPTION DRUG MONITORING REPORT IN PATIENT JUSTIN: No Instructions: Preventing Pressure Injuries Forms: ED Department Discharge Additional Instructions: Alternate Tylenol and ibuprofen for pain Keep pressure off the area Keep area clean and dry May cover area with a nonadherent dressing to prevent close from sticking Rx: Zofran, clindamycin Follow-up with your primary care provider on Thursday Sepsis Event Note (ED) - Evaluation Sepsis Screening Result: No Definite Risk - Focused Exam Vital Signs: Vital Signs Temp Pulse Resp BP Pulse Ox 11/29/19 23:05 96.3 F L 103 H 16 138/56 L 96 - My Orders Last 24 Hours: My Active Orders 11/29/19 23:14 CULTURE WOUND [RM] Urgent - Assessment/Plan Last 24 Hours: My Active Orders 11/29/19 23:14 CULTURE WOUND [RM] Urgent
== END 2019-11-29 23:48 | disposition home or self-care (01) ==
LOC: DL.ED 23:00
DX: E11.622 Type 2 diabetes mellitus with other skin ulcer (principal); L98.411 Non-pressure chronic ulcer of buttock limited to breakdown of skin; E78.00 Pure hypercholesterolemia, unspecified; I10 Essential (primary) hypertension; K21.9 Gastro-esophageal reflux disease without esophagitis; J45.909 Unspecified asthma, uncomplicated; F31.9 Bipolar disorder, unspecified; F41.9 Anxiety disorder, unspecified; E66.9 Obesity, unspecified; Z68.42 Body mass index [BMI] 45.0-49.9, adult; Z88.0 Allergy status to penicillin; Z88.2 Allergy status to sulfonamides; Z88.5 Allergy status to narcotic agent; Z88.6 Allergy status to analgesic agent; Z88.8 Allergy status to other drugs, medicaments and biological substances; Z91.030 Bee allergy status; Z79.4 Long term (current) use of insulin; Z79.899 Other long term (current) drug therapy; Z90.89 Acquired absence of other organs
CPT/HCPCS: 87070; 99283; A9270-GY

== ENCOUNTER 2019-12-16 23:16 | Emergency (ER) | payer MEDICAID ==
--- NOTE | 2019-12-16 23:37 | CR ---
PROCEDURE INFORMATION: Exam: XR Right Wrist Exam date and time: 12/16/2019 11:19 PM Age: 39 years old Clinical indication: Injury or trauma; Fall; Initial encounter; Abrasion; Wrist; Right; Additional info: Pain, wrist fell out of bed TECHNIQUE: Imaging protocol: XR Right wrist. Views: 3 or more views. COMPARISON: CR Wrist Comp Min 3V Rt 11/15/2019 8:34 PM FINDINGS: Bones/joints: Normal. Soft tissues: Normal. IMPRESSION: No acute fracture or dislocation.
--- NOTE | 2019-12-16 23:46 | EDM.PDOC ---
ED HPI GENERAL MEDICAL PROBLEM - General Chief Complaint: Upper Extremity Injury/Pain Stated Complaint: ROLLED OFF BED, HIT RIGHT WRIST Time Seen by Provider: 12/16/19 23:25 Source of Information: Reports: Patient History Limitations: Reports: No Limitations - History of Present Illness INITIAL COMMENTS - FREE TEXT/NARRATIVE: ED with c/o pain to right outer wrist, states rolled over to brass pickler blanket and fell out of bed, hit wrist on bedside table., Hurts to move Right Wrist Pain Score (Numeric/FACES): 9 - Related Data Allergies Allergy/AdvReac Type Severity Reaction Status Date / Time acetaminophen [From [place]] Allergy Hives Verified 11/29/19 23:09 escitalopram [From Lexapro] Allergy Rash Verified 12/16/19 23:23 fluoxetine [From Prozac] Allergy Rash Verified 12/16/19 23:23 hydrocodone [From [place]] Allergy Hives Verified 12/16/19 23:23 ibuprofen Allergy Rash Verified 12/16/19 23:23 Penicillins Allergy Hives Verified 12/16/19 23:23 ranitidine Allergy Hives Verified 12/16/19 23:23 Sulfa (Sulfonamide Allergy Rash Verified 12/16/19 23:23 Antibiotics) zolpidem [From Ambien] AdvReac Nausea and Verified 12/16/19 23:23 Vomiting BEE STING Allergy Unknown Anaphylactic Uncoded 12/16/19 23:23 Shock metformin Allergy Hives Uncoded 11/29/19 23:09 Home Meds: Home Meds Albuterol Sulfate 2.5 mg IH Q4H PRN 11/28/18 [History] Albuterol [Proventil HFA] 2 puff INH Q4H PRN 11/28/18 [History] Cetirizine [ZyrTEC] 10 mg PO DAILY 11/28/18 [History] Cyanocobalamin (Vitamin B-12) [Vitamin B-12] 1,000 mcg PO .WEEKLY 11/28/18 [History] EPINEPHrine [Epipen] 0.3 mg IM ASDIRECTED PRN 11/28/18 [History] Fluticasone Propion/Salmeterol [Fluticasone-Salmeterol 250-50] 1 each IH DAILY 11/28/18 [History] Fluticasone Propionate [Flonase] 1 - 2 spray NASBOTH ASDIRECTED 11/28/18 [History] Lisinopril 40 mg PO DAILY 11/28/18 [History] Omeprazole 20 mg PO DAILY 11/28/18 [History] Ondansetron [Zofran ODT] 4 mg PO Q8H PRN 11/28/18 [History] Orphenadrine [Norflex] 100 mg PO BID PRN 11/28/18 [History] Prazosin HCl [Prazosin] 2 mg PO BEDTIME 11/28/18 [History] QUEtiapine [SEROquel] 50 mg PO DAILY 11/28/18 [History] QUEtiapine [SEROquel] 150 mg PO BEDTIME 11/28/18 [History] Sennosides/Docusate Sodium [Senna Plus Tablet] 1 each PO DAILY 11/28/18 [History] Solifenacin Succinate [Vesicare] 10 mg PO DAILY 11/28/18 [History] Topiramate 50 mg PO BID 11/28/18 [History] Vitamin D3 27442 Units Capsule 50,000 units PO DAILY 11/28/18 [History] amLODIPine Besylate [Amlodipine Besylate] 10 mg PO DAILY 11/28/18 [History] atorvaSTATin [Lipitor] 10 mg PO DAILY 11/28/18 [History] Multivitamin with Minerals [Multivitamins with Minerals] 1 tab PO DAILY 12/03/18 [History] Cranberry Fruit [Cranberry] 500 mg PO BID 12/07/18 [History] Insulin Aspart [NovoLOG] 20 unit SQ ASDIRECTED 01/18/19 [History] Insulin Glarg,Human.Rec.Analog [Lantus] 68 unit SUBCUT ASDIRECTED 01/18/19 [History] Prazosin [Minpress] 1 mg PO ASDIRECTED 01/18/19 [History] Topiramate [Topamax] 50 mg PO BID 01/18/19 [History] Past Medical History - Past Health History Medical/Surgical History: Denies Medical/Surgical History HEENT History: Reports: None Cardiovascular History: Reports: High Cholesterol, Hypertension Respiratory History: Reports: Asthma Gastrointestinal History: Reports: None, Bowel Obstruction, GERD Genitourinary History: Reports: None WINE MASTER History: Reports: None, , Other (See Below) Other WINE MASTER History: tubal ligation Musculoskeletal History: Reports: Other (See Below) Other Musculoskeletal History: Tendonitis, carpel tunnel alfonso. Neurological History: Reports: Migraines Psychiatric History: Reports: Anxiety, Bipolar, Depression, PTSD Other Psychiatric History: pt unable to remember medications Endocrine/Metabolic History: Reports: Diabetes, Type II, Obesity/BMI 30+ Hematologic History: Reports: None Immunologic History: Reports: None Oncologic (Cancer) History: Reports: None Dermatologic History: Reports: None - Infectious Disease History Infectious Disease History: Reports: None - Past Surgical History Head Surgeries/Procedures: Reports: None GI Surgical History: Reports: Appendectomy Social & Family History - Family History Family Medical History: Noncontributory - Tobacco Use Smoking Status *Q: Never Smoker Second Hand Smoke Exposure: No - Caffeine Use Caffeine Use: Reports: None Other Caffeine Use: AVERAGE OF 12 OZ TEA DURING THE DAY - Recreational Drug Use Recreational Drug Use: No Review of Systems - Review of Systems Review Of Systems: Comprehensive ROS is negative, except as noted in HPI. ED EXAM, GENERAL - Physical Exam Exam: See Below Exam Limited By: No Limitations General Appearance: Alert, Mild Distress, Obese Eye Exam: Bilateral Eye: EOMI Ears: Normal External Exam Nose: Normal Inspection Throat/Mouth: Normal Inspection Head: Atraumatic, Normocephalic Respiratory/Chest: No Respiratory Distress Cardiovascular: Normal Peripheral Pulses, Regular Rate, Rhythm Back Exam: Full Range of Motion Extremities: Limited Range of Motion (right wrist, increased pain with mo vmement. No swelling No bruising. no deformity) Neurological: Alert, Oriented. No: Normal Cognition Psychiatric: Anxious Skin Exam: Warm, Dry, Intact, Normal Color. No: Ecchymosis, Erythema, Wound/Incision Course - Vital Signs Last Recorded V/S: Last Vital Signs Temp 97 F 12/16/19 23:19 Pulse 107 H 12/16/19 23:19 Resp 19 12/16/19 23:19 BP 132/84 12/16/19 23:19 Pulse Ox 99 12/16/19 23:19 Departure - Departure Time of Disposition: 23:41 Disposition: Home, Self-Care 01 Condition: Good Clinical Impression: Contusion of wrist, right Qualifiers: Encounter type: initial encounter Qualified Code(s): S60.211A - Contusion of right wrist, initial encounter - Discharge Information *PRESCRIPTION DRUG MONITORING PROGRAM REVIEWED*: No *COPY OF PRESCRIPTION DRUG MONITORING REPORT IN PATIENT JUSTIN: No Additional Instructions: ice rest follow up one week if not improving Sepsis Event Note (ED) - Evaluation Sepsis Screening Result: No Definite Risk - Focused Exam Vital Signs: Vital Signs Temp Pulse Resp BP Pulse Ox 12/16/19 23:19 97 F 107 H 19 132/84 99
== END 2019-12-16 23:46 | disposition home or self-care (01) ==
LOC: DL.ED 23:16
DX: S60.211A Contusion of right wrist, initial encounter (principal); I10 Essential (primary) hypertension; J45.909 Unspecified asthma, uncomplicated; K21.9 Gastro-esophageal reflux disease without esophagitis; E78.00 Pure hypercholesterolemia, unspecified; Z98.51 Tubal ligation status; E11.9 Type 2 diabetes mellitus without complications; E66.9 Obesity, unspecified; F41.9 Anxiety disorder, unspecified; F31.9 Bipolar disorder, unspecified; G43.909 Migraine, unspecified, not intractable, without status migrainosus; Z90.49 Acquired absence of other specified parts of digestive tract; Z79.4 Long term (current) use of insulin; Z88.8 Allergy status to other drugs, medicaments and biological substances; Z88.5 Allergy status to narcotic agent; Z88.6 Allergy status to analgesic agent; Z88.2 Allergy status to sulfonamides; Z91.030 Bee allergy status; Z79.899 Other long term (current) drug therapy; Z68.43 Body mass index [BMI] 50.0-59.9, adult
CPT/HCPCS: 73110-RT; 99283-25

== ENCOUNTER 2020-01-05 21:44 | Emergency (ER) | payer MEDICAID ==
[2020-01-05] MEDS ORDERED: Sodium Chloride 0.9% 1,000 ML IV ONE (22:29)
[2020-01-05 23:05] LABS: CHLORIDE,CL 105 mmol/L (98-107); SODIUM,NA 138 mmol/L (136-145)
--- NOTE | 2020-01-05 23:05 | EDM.PDOC ---
ED HPI GENERAL MEDICAL PROBLEM - General Chief Complaint: Gastrointestinal Problem Stated Complaint: CAN'T KEEP DOWN ANY FOOD, FREEZING, LEFT SIDE PAIN Time Seen by Provider: 01/05/20 22:15 Source of Information: Reports: Patient, RN, RN Notes Reviewed History Limitations: Reports: No Limitations - History of Present Illness INITIAL COMMENTS - FREE TEXT/NARRATIVE: Patient presents to ER with complaint of nausea and vomiting, diarrhea for the past 2 days. Patient states she has had some epigastric chest pain as well for the past 2 days. States her last decent bowel movement was 4 days ago. Patient states she is unable to keep anything down. States she last ate a hot pocket at 6 PM and vomited it up again. Patient states no shortness of breath, and no exposure to COVID. Patient states she has never been tested for COVID. Patient admits to history of asthma only. Patient states she does still have her gallbladder, states she does not have her appendix. Patient admits to left- sided abdominal pain as well. Denies any blood in vomit or stool. Onset: Gradual Onset Date: 01/03/20 Left Middle Abdomen Pain Score (Numeric/FACES): 6 - Related Data Allergies Allergy/AdvReac Type Severity Reaction Status Date / Time acetaminophen [From [place]] Allergy Hives Verified 01/05/20 22:00 escitalopram [From Lexapro] Allergy Rash Verified 01/05/20 22:00 fluoxetine [From Prozac] Allergy Rash Verified 01/05/20 22:00 hydrocodone [From [place]] Allergy Hives Verified 01/05/20 22:00 ibuprofen Allergy Rash Verified 01/05/20 22:00 Penicillins Allergy Hives Verified 01/05/20 22:00 ranitidine Allergy Hives Verified 01/05/20 22:00 Sulfa (Sulfonamide Allergy Rash Verified 01/05/20 22:00 Antibiotics) zolpidem [From Ambien] AdvReac Nausea and Verified 01/05/20 22:00 Vomiting BEE STING Allergy Unknown Anaphylactic Uncoded 01/05/20 22:00 Shock metformin Allergy Hives Uncoded 01/05/20 22:00 Home Meds: Home Meds Albuterol Sulfate 2.5 mg IH Q4H PRN 11/28/18 [History] Albuterol [Proventil HFA] 2 puff INH Q4H PRN 11/28/18 [History] Cetirizine [ZyrTEC] 10 mg PO DAILY 11/28/18 [History] Cyanocobalamin (Vitamin B-12) [Vitamin B-12] 1,000 mcg PO .WEEKLY 11/28/18 [History] EPINEPHrine [Epipen] 0.3 mg IM ASDIRECTED PRN 11/28/18 [History] Fluticasone Propion/Salmeterol [Fluticasone-Salmeterol 250-50] 1 each IH DAILY 11/28/18 [History] Fluticasone Propionate [Flonase] 1 - 2 spray NASBOTH ASDIRECTED 11/28/18 [History] Lisinopril 40 mg PO DAILY 11/28/18 [History] Omeprazole 20 mg PO DAILY 11/28/18 [History] Ondansetron [Zofran ODT] 4 mg PO Q8H PRN 11/28/18 [History] Orphenadrine [Norflex] 100 mg PO BID PRN 11/28/18 [History] Prazosin HCl [Prazosin] 2 mg PO BEDTIME 11/28/18 [History] QUEtiapine [SEROquel] 50 mg PO DAILY 11/28/18 [History] QUEtiapine [SEROquel] 150 mg PO BEDTIME 11/28/18 [History] Sennosides/Docusate Sodium [Senna Plus Tablet] 1 each PO DAILY 11/28/18 [History] Solifenacin Succinate [Vesicare] 10 mg PO DAILY 11/28/18 [History] Topiramate 50 mg PO BID 11/28/18 [History] Vitamin D3 19925 Units Capsule 50,000 units PO DAILY 11/28/18 [History] amLODIPine Besylate [Amlodipine Besylate] 10 mg PO DAILY 11/28/18 [History] atorvaSTATin [Lipitor] 10 mg PO DAILY 11/28/18 [History] Multivitamin with Minerals [Multivitamins with Minerals] 1 tab PO DAILY 12/03/18 [History] Cranberry Fruit [Cranberry] 500 mg PO BID 12/07/18 [History] Insulin Aspart [NovoLOG] 20 unit SQ ASDIRECTED 01/18/19 [History] Insulin Glarg,Human.Rec.Analog [Lantus] 68 unit SUBCUT ASDIRECTED 01/18/19 [History] Prazosin [Minpress] 1 mg PO ASDIRECTED 01/18/19 [History] Topiramate [Topamax] 50 mg PO BID 01/18/19 [History] Past Medical History - Past Health History Medical/Surgical History: Denies Medical/Surgical History HEENT History: Reports: None Cardiovascular History: Reports: High Cholesterol, Hypertension Respiratory History: Reports: Asthma Gastrointestinal History: Reports: None, Bowel Obstruction, GERD Genitourinary History: Reports: None ALLIANCE DIRECTOR History: Reports: None, , Other (See Below) Other ALLIANCE DIRECTOR History: tubal ligation Musculoskeletal History: Reports: Other (See Below) Other Musculoskeletal History: Tendonitis, carpel tunnel alfonso. Neurological History: Reports: Migraines Psychiatric History: Reports: Anxiety, Bipolar, Depression, PTSD Other Psychiatric History: pt unable to remember medications Endocrine/Metabolic History: Reports: Diabetes, Type II, Obesity/BMI 30+ Hematologic History: Reports: None Immunologic History: Reports: None Oncologic (Cancer) History: Reports: None Dermatologic History: Reports: None - Infectious Disease History Infectious Disease History: Reports: None - Past Surgical History Head Surgeries/Procedures: Reports: None GI Surgical History: Reports: Appendectomy Social & Family History - Family History Family Medical History: Noncontributory - Tobacco Use Smoking Status *Q: Never Smoker Second Hand Smoke Exposure: No - Caffeine Use Caffeine Use: Reports: Coffee, Tea Other Caffeine Use: AVERAGE OF 12 OZ TEA DURING THE DAY - Recreational Drug Use Recreational Drug Use: No ED ROS GENERAL - Review of Systems Review Of Systems: Comprehensive ROS is negative, except as noted in HPI. ED EXAM, GI/ABD - Physical Exam Exam: See Below Exam Limited By: No Limitations General Appearance: Alert, WD/WN, Mild Distress, Obese Eyes: Bilateral: Normal Appearance, EOMI Ears: Normal External Exam, Hearing Grossly Normal Nose: Normal Inspection Throat/Mouth: Normal Inspection, Normal Voice, No Airway Compromise Head: Atraumatic, Normocephalic Neck: Normal Inspection, Supple, Non-Tender, Full Range of Motion Respiratory/Chest: No Respiratory Distress, Lungs Clear, Normal Breath Sounds, No Accessory Muscle Use, Chest Non-Tender Cardiovascular: Normal Peripheral Pulses, Regular Rate, Rhythm, No Edema, No Gallop, No JVD, No Murmur, No Rub GI/Abdominal Exam: Soft, Distended, Tender, Abnormal Bowel Sounds (hypoactive) (Female) Exam: Deferred Rectal (Female) Exam: Deferred Back Exam: Normal Inspection, Full Range of Motion, NT Extremities: Normal Inspection, Normal Range of Motion, Non-Tender, Normal Capillary Refill, No Pedal Edema Neurological: Alert, Oriented, CN II-XII Intact, Normal Cognition, Normal Gait, Normal Reflexes, No Motor/Sensory Deficits Psychiatric: Normal Affect, Normal Mood Skin Exam: Warm, Dry, Intact, Normal Color, No Rash Lymphatic: No Adenopathy Course - Vital Signs Last Recorded V/S: Last Vital Signs Temp 97.3 F 01/05/20 21:54 Pulse 120 H 01/05/20 21:54 Resp 19 01/05/20 21:54 BP 158/86 H 01/05/20 21:54 Pulse Ox 100 01/05/20 21:54 - Orders/Labs/Meds Orders: Active Orders 24 hr Category Date Time Status CULTURE BLOOD [BC] Stat Lab 01/05/20 22:35 Results CULTURE BLOOD [BC] Stat Lab 01/05/20 22:40 Results HCG QUALITATIVE,URINE [URCHEM] Stat Lab 01/05/20 22:28 Ordered Blood Culture x2 Reflex Set [OM.PC] Stat Oth 01/05/20 22:28 Ordered Labs: Laboratory Tests 01/05/20 01/05/20 01/05/20 Range/Units 22:40 22:40 22:40 WBC 12.3 H (5.0-10.0) 10^3/uL RBC 4.87 (4.2-5.4) 10^6/uL Hgb 14.2 (12.0-16.0) g/dL Hct 42.2 (37.0-47.0) % MCV 86.7 (80-100) fL MCH 29.2 (27.0-34.0) pg MCHC 33.6 (33.0-35.0) g/dL Plt Count 303 (150-450) 10^3/uL Neut % (Auto) 61.8 (42.2-75.2) % Lymph % (Auto) 27.1 (20.5-50.1) % [place] % (Auto) 7.0 (2-8) % Eos % (Auto) 3.9 H (1.0-3.0) % Baso % (Auto) 0.2 (0.0-1.0) % Sodium 138 (136-145) mmol/L Potassium 4.0 (3.5-5.1) mmol/L Chloride 105 (98-107) mmol/L Carbon Dioxide 21 (21-32) mmol/L Anion Gap 16.0 H (7-13) mEq/L BUN 10 (7-18) mg/dL Creatinine 0.67 (0.55-1.02) mg/dL Est Cr Clr Drug Dosing 86.75 mL/min Estimated GFR (MDRD) > 60 BUN/Creatinine Ratio 14.9 (No establ ref range) Glucose 165 H (74-99) mg/dL Lactic Acid 1.2 (0.4-2.0) mmol/L Calcium 8.9 (8.5-10.1) mg/dL Total Bilirubin 0.3 (0.2-1.0) mg/dL AST 17 (15-37) U/L ALT 44 (14-59) U/L Alkaline Phosphatase 87 (46-116) U/L Troponin I (0.000-0.056) ng/mL Total Protein 7.4 (6.4-8.2) g/dL Albumin 3.5 (3.4-5.0) g/dL Globulin 3.9 Albumin/Globulin Ratio 0.9 01/05/20 Range/Units 22:40 WBC (5.0-10.0) 10^3/uL RBC (4.2-5.4) 10^6/uL Hgb (12.0-16.0) g/dL Hct (37.0-47.0) % MCV (80-100) fL MCH (27.0-34.0) pg MCHC (33.0-35.0) g/dL Plt Count (150-450) 10^3/uL Neut % (Auto) (42.2-75.2) % Lymph % (Auto) (20.5-50.1) % [place] % (Auto) (2-8) % Eos % (Auto) (1.0-3.0) % Baso % (Auto) (0.0-1.0) % Sodium (136-145) mmol/L Potassium (3.5-5.1) mmol/L Chloride (98-107) mmol/L Carbon Dioxide (21-32) mmol/L Anion Gap (7-13) mEq/L BUN (7-18) mg/dL Creatinine (0.55-1.02) mg/dL Est Cr Clr Drug Dosing mL/min Estimated GFR (MDRD) BUN/Creatinine Ratio (No establ ref range) Glucose (74-99) mg/dL Lactic Acid (0.4-2.0) mmol/L Calcium (8.5-10.1) mg/dL Total Bilirubin (0.2-1.0) mg/dL AST (15-37) U/L ALT (14-59) U/L Alkaline Phosphatase (46-116) U/L Troponin I < 0.017 (0.000-0.056) ng/mL Total Protein (6.4-8.2) g/dL Albumin (3.4-5.0) g/dL Globulin Albumin/Globulin Ratio Meds: Medications Discontinued Medications Generic Name Dose Route Start Last Admin Trade Name Freq PRN Reason Stop Dose Admin Sodium Chloride 1,000 mls @ 999 mls/hr 01/05/20 22:29 01/05/20 22:41 Normal Saline IV 01/05/20 23:29 999 mls/hr .BOLUS ONE Administration Iopamidol 100 ml 01/05/20 23:39 01/05/20 23:41 Isovue-300 (61%) IVPUSH 01/05/20 23:40 100 ml ONETIME ONE Administration - Radiology Interpretation Free Text/Narrative:: CT Abdomen/Pelvis with contrast: PROCEDURE INFORMATION: Exam: CT Abdomen And Pelvis With Contrast Exam date and time: 01/05/2020 11:34 PM Age: 39 years old Clinical indication: Other: Wbc 12,500; Additional info: Abdominal pain, hypoactive bs, n/v/d TECHNIQUE: Imaging protocol: Computed tomography of the abdomen and pelvis with intravenous contrast. Radiation optimization: All CT scans at this facility use at least one of these dose optimization techniques: automated exposure control; mA and/or kV adjustment per patient size (includes targeted exams where dose is matched to clinical indication); or iterative reconstruction. Contrast material: [id number]; Contrast volume: 100 ml; Contrast route: INTRAVENOUS (IV); COMPARISON: CT Abdomen Pelvis wo Cont 10/12/2019 11:24 PM FINDINGS: Lungs: The lung bases are clear. There are no pleural effusions. Liver: There is diffuse fatty infiltration of the liver. No focal hepatic lesions are appreciated. Gallbladder and bile ducts: The gallbladder is not distended. There is no biliary ductal dilatation. Pancreas: The pancreas is within normal limits. Spleen: The spleen is normal in size. Adrenals: The adrenal glands are normal in appearance. Kidneys and ureters: Neither kidney shows evidence of hydronephrosis or renal stone. The ureters are normal in caliber. No intraluminal filling defects are identified. Stomach and bowel: The stomach is not distended. No pathologically dilated small bowel loops are identified. There is no evidence of colonic wall thickening or pericolonic inflammation. Appendix: The appendix is surgically absent. Intraperitoneal space: There is no free air or free fluid in the abdomen or pelvis. Vasculature: The abdominal aorta is normal in caliber. The celiac axis, SMA and WEST are patent. Lymph nodes: No pathologically enlarged lymph nodes are identified in the abdomen or pelvis. Urinary bladder: The urinary bladder appears normal. Reproductive: The uterus is normal in appearance. The ovaries appear normal bilaterally. Bones/joints: There is normal alignment throughout the visualized portion of the spine. No acute fractures or aggressive bone lesions are identified. Soft tissues: The soft tissues are within normal limits. IMPRESSION: 1. Fatty infiltration of the liver, a finding which can be due to benign steatosis versus alcoholic or non alcoholic steatohepatitis. 2. No acute inflammatory process is identified in the abdomen or pelvis. There is no evidence of bowel obstruction, free air or free fluid. Thank you for allowing us to participate in the care of your patient. Dictated and Authenticated by: Winsome Noel MD 01/06/2020 12:30 AM Central Time ([place] & [place]) See rad report Departure - Departure Time of Disposition: 00:48 Disposition: Home, Self-Care 01 Condition: Fair Clinical Impression: Gastroenteritis - Discharge Information *PRESCRIPTION DRUG MONITORING PROGRAM REVIEWED*: No *COPY OF PRESCRIPTION DRUG MONITORING REPORT IN PATIENT JUSTIN: No Instructions: Viral Gastroenteritis, Adult, [id number]-[id number], Diarrhea, Adult, [id number], Nausea and Vomiting, Adult, [id number], Food Choices to Help Relieve Diarrhea, Adult Forms: ED Department Discharge Additional Instructions: Clear liquids only if not nauseated Advance diet to toast and full liquids as tolerated May use Imodium [id number] for diarrhea Rx: Zofran for nausea Follow-up with your primary care provider in the clinic if no improvement If worsening of symptoms return to the ER Sepsis Event Note (ED) - Evaluation Sepsis Screening Result: No Definite Risk - Focused Exam Vital Signs: Vital Signs Temp Pulse Resp BP Pulse Ox 01/05/20 21:54 97.3 F 120 H 19 158/86 H 100 - My Orders Last 24 Hours: My Active Orders 01/05/20 22:28 HCG QUALITATIVE,URINE [URCHEM] Stat Blood Culture x2 Reflex Set [OM.PC] Stat 01/05/20 22:35 CULTURE BLOOD [BC] Stat 01/05/20 22:40 CULTURE BLOOD [BC] Stat - Assessment/Plan Last 24 Hours: My Active Orders 01/05/20 22:28 HCG QUALITATIVE,URINE [URCHEM] Stat Blood Culture x2 Reflex Set [OM.PC] Stat 01/05/20 22:35 CULTURE BLOOD [BC] Stat 01/05/20 22:40 CULTURE BLOOD [BC] Stat
[2020-01-05] MEDS ORDERED: Iopamidol 612 MG/ML 100 ML Bottle IVPUSH ONE (23:39)
--- NOTE | 2020-01-06 00:30 | CT ---
PROCEDURE INFORMATION: Exam: CT Abdomen And Pelvis With Contrast Exam date and time: 01/05/2020 11:34 PM Age: 39 years old Clinical indication: Other: Wbc 12,500; Additional info: Abdominal pain, hypoactive bs, n/v/d TECHNIQUE: Imaging protocol: Computed tomography of the abdomen and pelvis with intravenous contrast. Radiation optimization: All CT scans at this facility use at least one of these dose optimization techniques: automated exposure control; mA and/or kV adjustment per patient size (includes targeted exams where dose is matched to clinical indication); or iterative reconstruction. Contrast material: [id number]; Contrast volume: 100 ml; Contrast route: INTRAVENOUS (IV); COMPARISON: CT Abdomen Pelvis wo Cont 10/12/2019 11:24 PM FINDINGS: Lungs: The lung bases are clear. There are no pleural effusions. Liver: There is diffuse fatty infiltration of the liver. No focal hepatic lesions are appreciated. Gallbladder and bile ducts: The gallbladder is not distended. There is no biliary ductal dilatation. Pancreas: The pancreas is within normal limits. Spleen: The spleen is normal in size. Adrenals: The adrenal glands are normal in appearance. Kidneys and ureters: Neither kidney shows evidence of hydronephrosis or renal stone. The ureters are normal in caliber. No intraluminal filling defects are identified. Stomach and bowel: The stomach is not distended. No pathologically dilated small bowel loops are identified. There is no evidence of colonic wall thickening or pericolonic inflammation. Appendix: The appendix is surgically absent. Intraperitoneal space: There is no free air or free fluid in the abdomen or pelvis. Vasculature: The abdominal aorta is normal in caliber. The celiac axis, SMA and WEST are patent. Lymph nodes: No pathologically enlarged lymph nodes are identified in the abdomen or pelvis. Urinary bladder: The urinary bladder appears normal. Reproductive: The uterus is normal in appearance. The ovaries appear normal bilaterally. Bones/joints: There is normal alignment throughout the visualized portion of the spine. No acute fractures or aggressive bone lesions are identified. Soft tissues: The soft tissues are within normal limits. IMPRESSION: 1. Fatty infiltration of the liver, a finding which can be due to benign steatosis versus alcoholic or non alcoholic steatohepatitis. 2. No acute inflammatory process is identified in the abdomen or pelvis. There is no evidence of bowel obstruction, free air or free fluid.
[2020-01-06] MEDS ORDERED: Ondansetron 4 MG Tab.DIS ONE (01:00)
== END 2020-01-06 01:34 | disposition home or self-care (01) ==
LOC: DL.ED 21:44
DX: K52.9 Noninfective gastroenteritis and colitis, unspecified (principal); E78.00 Pure hypercholesterolemia, unspecified; I10 Essential (primary) hypertension; J45.909 Unspecified asthma, uncomplicated; K21.9 Gastro-esophageal reflux disease without esophagitis; F31.9 Bipolar disorder, unspecified; F41.9 Anxiety disorder, unspecified; E11.9 Type 2 diabetes mellitus without complications; E66.9 Obesity, unspecified; Z68.42 Body mass index [BMI] 45.0-49.9, adult; Z88.6 Allergy status to analgesic agent; Z88.8 Allergy status to other drugs, medicaments and biological substances; Z88.5 Allergy status to narcotic agent; Z88.0 Allergy status to penicillin; Z88.2 Allergy status to sulfonamides; Z91.030 Bee allergy status; Z79.899 Other long term (current) drug therapy; Z79.4 Long term (current) use of insulin
CPT/HCPCS: 36415; 74177; 80053; 81001; 81025; 83605; 84484; 85025; 87040; 99284; J7030; Q9967; 99283

== ENCOUNTER 2020-02-07 19:26 | Emergency (ER) | payer MEDICAID ==
--- NOTE | 2020-02-07 20:01 | EDM.PDOCBH ---
ED HPI GENERAL MEDICAL PROBLEM - General Chief Complaint: Behavioral/Psych Stated Complaint: BIPOLAR / SUICIDLE Time Seen by Provider: 02/07/20 19:50 Source of Information: Reports: Patient History Limitations: Reports: No Limitations - History of Present Illness INITIAL COMMENTS - FREE TEXT/NARRATIVE: This 39 yo female patient reports to the ED with an increase in suicidal tho ughts over the past week. The patient reports she has not been sleeping well, has not been eating or drinking. The patient reports she has been in contact with the [facility] [place] and was advised to come to the ED if her symptoms got any worse or did not get any better. The patient reports she did miss her morning medications today due to oversleeping. The patient reports she has not taken her evening medications at this time. The patient reports she has been hospitalized in the past for suicidal ideation ([place] and [place]). The patient reports the [facility] [place] to [place] home today and took all of her knives. The patient reports her only plan at this time is to cut herself. The patient denies any drugs or ETOH. The patient does have a history of Bipolar. Duration: Week(s):, Constant, Getting Worse Location: Reports: Generalized Quality: Reports: Other Severity: Moderate Improves with: Reports: None Worsens with: Reports: None - Related Data Allergies Allergy/AdvReac Type Severity Reaction Status Date / Time acetaminophen [From [place]] Allergy Hives Verified 02/07/20 19:36 escitalopram [From Lexapro] Allergy Rash Verified 02/07/20 19:36 fluoxetine [From Prozac] Allergy Rash Verified 02/07/20 19:36 hydrocodone [From [place]] Allergy Hives Verified 02/07/20 19:36 ibuprofen Allergy Rash Verified 02/07/20 19:36 Penicillins Allergy Hives Verified 02/07/20 19:36 ranitidine Allergy Hives Verified 02/07/20 19:36 Sulfa (Sulfonamide Allergy Rash Verified 02/07/20 19:36 Antibiotics) zolpidem [From Ambien] AdvReac Nausea and Verified 02/07/20 19:36 Vomiting BEE STING Allergy Unknown Anaphylactic Uncoded 02/07/20 19:36 Shock metformin Allergy Hives Uncoded 02/07/20 19:36 Home Meds: Home Meds Albuterol Sulfate 2.5 mg IH Q4H PRN 11/28/18 [History] Albuterol [Proventil HFA] 2 puff INH Q4H PRN 11/28/18 [History] Cetirizine [ZyrTEC] 10 mg PO DAILY 11/28/18 [History] Cyanocobalamin (Vitamin B-12) [Vitamin B-12] 1,000 mcg PO .WEEKLY 11/28/18 [History] EPINEPHrine [Epipen] 0.3 mg IM ASDIRECTED PRN 11/28/18 [History] Fluticasone Propion/Salmeterol [Fluticasone-Salmeterol 250-50] 1 each IH DAILY 11/28/18 [History] Fluticasone Propionate [Flonase] 1 - 2 spray NASBOTH BID 11/28/18 [History] Lisinopril 40 mg PO DAILY 11/28/18 [History] Omeprazole 20 mg PO DAILY 11/28/18 [History] Ondansetron [Zofran ODT] 4 mg PO Q8H PRN 11/28/18 [History] Orphenadrine [Norflex] 100 mg PO BID PRN 11/28/18 [History] Prazosin HCl [Prazosin] 4 mg PO BEDTIME 11/28/18 [History] QUEtiapine [SEROquel] 150 mg PO BEDTIME 11/28/18 [History] Sennosides/Docusate Sodium [Senna Plus Tablet] 1 each PO DAILY 11/28/18 [History] Solifenacin Succinate [Vesicare] 10 mg PO DAILY 11/28/18 [History] Vitamin D3 57934 Units Capsule 50,000 units PO DAILY 11/28/18 [History] amLODIPine Besylate [Amlodipine Besylate] 10 mg PO DAILY 11/28/18 [History] atorvaSTATin [Lipitor] 10 mg PO DAILY 11/28/18 [History] Multivitamin with Minerals [Multivitamins with Minerals] 1 tab PO DAILY 12/03/18 [History] Cranberry Fruit [Cranberry] 500 mg PO BID 12/07/18 [History] Insulin Aspart [NovoLOG] 20 unit SQ ASDIRECTED 01/18/19 [History] Insulin Glarg,Human.Rec.Analog [Lantus] 76 unit SUBCUT ASDIRECTED 01/18/19 [History] Topiramate [Topamax] 50 mg PO BID 01/18/19 [History] Clindamycin HCl 150 O2AERO TID 02/07/20 [History] Mupirocin Oint [Bactroban Oint] 22 gm TP BID PRN 02/07/20 [History] Past Medical History - Past Health History Medical/Surgical History: Denies Medical/Surgical History HEENT History: Reports: None Cardiovascular History: Reports: High Cholesterol, Hypertension Respiratory History: Reports: Asthma Gastrointestinal History: Reports: None, Bowel Obstruction, GERD Genitourinary History: Reports: None SEWER PIPE SORTER History: Reports: None, , Other (See Below) Other SEWER PIPE SORTER History: tubal ligation Musculoskeletal History: Reports: Other (See Below) Other Musculoskeletal History: Tendonitis, carpel tunnel alfonso. Neurological History: Reports: Migraines Psychiatric History: Reports: Anxiety, Bipolar, Depression, PTSD Other Psychiatric History: pt unable to remember medications Endocrine/Metabolic History: Reports: Diabetes, Type II, Obesity/BMI 30+ Hematologic History: Reports: None Immunologic History: Reports: None Oncologic (Cancer) History: Reports: None Dermatologic History: Reports: None - Infectious Disease History Infectious Disease History: Reports: None - Past Surgical History Head Surgeries/Procedures: Reports: None GI Surgical History: Reports: Appendectomy Social & Family History - Family History Family Medical History: Noncontributory - Caffeine Use Caffeine Use: Reports: Coffee, Tea Other Caffeine Use: AVERAGE OF 12 OZ TEA DURING THE DAY ED ROS GENERAL - Review of Systems Review Of Systems: Comprehensive ROS is negative, except as noted in HPI. ED EXAM, BEHAVIORAL HEALTH - Physical Exam Exam: See Below Exam Limited By: No Limitations General Appearance: Alert, WD/WN, Moderate Distress, Obese Eye Exam: Bilateral Eye: EOMI, Normal Inspection, PERRL Ears: Normal External Exam Nose: Normal Inspection, Normal Mucosa, No Blood Throat/Mouth: Normal Inspection, Normal Lips, Normal Teeth, Normal Gums, Normal Oropharynx, Normal Voice, No Airway Compromise Head: Atraumatic, Normocephalic Neck: Normal Inspection, Supple, Non-Tender, Full Range of Motion Respiratory/Chest: No Respiratory Distress, Lungs Clear, Normal Breath Sounds, No Accessory Muscle Use, Chest Non-Tender Cardiovascular: Normal Peripheral Pulses, Regular Rate, Rhythm, No Edema, No Gallop, No JVD, No Murmur, No Rub GI/Abdominal: Normal Bowel Sounds, Soft, Non-Tender, No Organomegaly, No Distention, No Abnormal Bruit, No Mass (Female) Exam: Deferred Rectal (Female) Exam: Deferred Back Exam: Normal Inspection, Full Range of Motion, NT Extremities: Normal Inspection, Normal Range of Motion, Non-Tender, Normal Capillary Refill, No Pedal Edema Neurological: Alert, CN II-XII Intact, Normal Reflexes, No Motor/Sensory Deficits, Oriented x 3 Psychiatric: Alert, Depressed Mood, Flat Affect, Suicidal Plan (cutting), Suicidal Thoughts Skin Exam: Warm, Dry, Intact, Normal color, No rash COURSE, BEHAVIORAL HEALTH COMP - Course Vital Signs: Last Vital Signs Temp 37.1 C 02/07/20 19:30 Pulse 114 H 02/07/20 19:30 Resp 16 02/07/20 19:30 BP 161/85 H 02/07/20 19:30 Pulse Ox 100 02/07/20 19:30 Orders, Labs, Meds: Active Orders 24 hr Category Date Time Status CORONAVIRUS COVID-19 PCR PHL Urgent Lab 02/07/20 19:46 Ordered DRUG SCREEN URINE BIORAD [URCHEM] Stat Lab 02/07/20 19:23 Ordered HCG QUALITATIVE,URINE [URCHEM] Stat Lab 02/07/20 19:23 Ordered REFLEX LACTIC ACID YES OR NO [CHEM] Routine Lab 02/07/20 20:15 Received UA RFX ZULMA AND CULT IF INDIC [URIN] Urgent Lab 02/07/20 19:23 Ordered Laboratory Tests 02/07/20 02/07/20 02/07/20 Range/Units 19:45 19:45 19:45 WBC 6.9 (5.0-10.0) 10^3/uL RBC 4.59 (4.2-5.4) 10^6/uL Hgb 13.2 (12.0-16.0) g/dL Hct 39.6 (37.0-47.0) % MCV 86.3 (80-100) fL MCH 28.8 (27.0-34.0) pg MCHC 33.3 (33.0-35.0) g/dL Plt Count 244 (150-450) 10^3/uL Neut % (Auto) 61.6 (42.2-75.2) % Lymph % (Auto) 24.8 (20.5-50.1) % [place] % (Auto) 9.7 H (2-8) % Eos % (Auto) 3.8 H (1.0-3.0) % Baso % (Auto) 0.1 (0.0-1.0) % Sodium 137 (136-145) mmol/L Potassium 3.5 (3.5-5.1) mmol/L Chloride 99 (98-107) mmol/L Carbon Dioxide 24 (21-32) mmol/L Anion Gap 17.5 H (7-13) mEq/L BUN 9 (7-18) mg/dL Creatinine 0.77 (0.55-1.02) mg/dL Est Cr Clr Drug Dosing 75.48 mL/min Estimated GFR (MDRD) > 60 BUN/Creatinine Ratio 11.7 (No establ ref range) Glucose 205 H (74-99) mg/dL Lactic Acid 2.2 H* (0.4-2.0) mmol/L Calcium 8.4 L (8.5-10.1) mg/dL Magnesium 1.7 L (1.8-2.4) mg/dL Total Bilirubin 0.3 (0.2-1.0) mg/dL AST 26 (15-37) U/L ALT 45 (14-59) U/L Alkaline Phosphatase 91 (46-116) U/L Total Protein 7.2 (6.4-8.2) g/dL Albumin 3.4 (3.4-5.0) g/dL Globulin 3.8 Albumin/Globulin Ratio 0.9 Amylase 46 (25-115) U/L Salicylates (2.8-20(Therapeutic)) mg/dL Acetaminophen 0 L (10-30 (Therapeutic)) ug/mL Ethyl Alcohol < 3 (0) mg/dL SARS CoV-2 RNA Rapid ERIKA (NEGATIVE) 02/07/20 02/07/20 Range/Units 19:45 19:53 WBC (5.0-10.0) 10^3/uL RBC (4.2-5.4) 10^6/uL Hgb (12.0-16.0) g/dL Hct (37.0-47.0) % MCV (80-100) fL MCH (27.0-34.0) pg MCHC (33.0-35.0) g/dL Plt Count (150-450) 10^3/uL Neut % (Auto) (42.2-75.2) % Lymph % (Auto) (20.5-50.1) % [place] % (Auto) (2-8) % Eos % (Auto) (1.0-3.0) % Baso % (Auto) (0.0-1.0) % Sodium (136-145) mmol/L Potassium (3.5-5.1) mmol/L Chloride (98-107) mmol/L Carbon Dioxide (21-32) mmol/L Anion Gap (7-13) mEq/L BUN (7-18) mg/dL Creatinine (0.55-1.02) mg/dL Est Cr Clr Drug Dosing mL/min Estimated GFR (MDRD) BUN/Creatinine Ratio (No establ ref range) Glucose (74-99) mg/dL Lactic Acid (0.4-2.0) mmol/L Calcium (8.5-10.1) mg/dL Magnesium (1.8-2.4) mg/dL Total Bilirubin (0.2-1.0) mg/dL AST (15-37) U/L ALT (14-59) U/L Alkaline Phosphatase (46-116) U/L Total Protein (6.4-8.2) g/dL Albumin (3.4-5.0) g/dL Globulin Albumin/Globulin Ratio Amylase (25-115) U/L Salicylates < 2.8 L (2.8-20(Therapeutic)) mg/dL Acetaminophen (10-30 (Therapeutic)) ug/mL Ethyl Alcohol (0) mg/dL SARS CoV-2 RNA Rapid ERIKA Positive H (NEGATIVE) Re-Assessment/Re-Exam: [facility] spoke with the patient and will have follow-up with her tonight and again in the morning. Departure - Departure Time of Disposition: 21:29 Disposition: Home, Self-Care 01 Condition: Fair Clinical Impression: Suicidal ideation, 2019 novel coronavirus disease (COVID-19) - Discharge Information *PRESCRIPTION DRUG MONITORING PROGRAM REVIEWED*: Not Applicable *COPY OF PRESCRIPTION DRUG MONITORING REPORT IN PATIENT JUSTIN: Not Applicable Instructions: Suicidal Feelings: How to Help Yourself, COVID-19: How to Protect Yourself and Others - CDC, Prevent the Spread of COVID-19 if You Are Sick - [facility] Forms: ED Department Discharge Care Plan Goals: The patient was advised of the examination and lab results. The patient did have a conversation with [facility] and will have follow-up with them tonight and again in the morning. The patient was encouraged to continue to monitor her symptoms. The patient was encouraged to stick to a BRAT diet (bananas, rice, applesauce and toast) with small frequent sips of fluids. The patient should take her medications as prescribed and speak with [facility] as arranged. If the patient has any additional symptoms or concerns, the patient should either return to the emergency department or visit her primary care facility. Sepsis Event Note (ED) - Evaluation Sepsis Screening Result: No Definite Risk - Focused Exam Vital Signs: Vital Signs Temp Pulse Resp BP Pulse Ox 02/07/20 19:30 37.1 C 114 H 16 161/85 H 100 - My Orders Last 24 Hours: My Active Orders 02/07/20 19:23 DRUG SCREEN URINE BIORAD [URCHEM] Stat HCG QUALITATIVE,URINE [URCHEM] Stat UA RFX ZULMA AND CULT IF INDIC [URIN] Urgent 02/07/20 19:46 CORONAVIRUS COVID-19 PCR PHL Urgent 02/07/20 20:15 REFLEX LACTIC ACID YES OR NO [CHEM] Routine - Assessment/Plan Last 24 Hours: My Active Orders 02/07/20 19:23 DRUG SCREEN URINE BIORAD [URCHEM] Stat HCG QUALITATIVE,URINE [URCHEM] Stat UA RFX ZULMA AND CULT IF INDIC [URIN] Urgent 02/07/20 19:46 CORONAVIRUS COVID-19 PCR PHL Urgent 02/07/20 20:15 REFLEX LACTIC ACID YES OR NO [CHEM] Routine
[2020-02-07 20:10] LABS: ANION GAP 17.5 mEq/L (7-13); CHLORIDE,CL 99 mmol/L (98-107); SODIUM,NA 137 mmol/L (136-145)
[2020-02-07 20:11] LABS: ACETAMINOPHEN 0 ug/mL (10-30 (Therapeutic))
== END 2020-02-07 21:45 | disposition home or self-care (01) ==
LOC: DL.ED 19:26
DX: U07.1 COVID-19 (principal); R45.851 Suicidal ideations; E78.00 Pure hypercholesterolemia, unspecified; I10 Essential (primary) hypertension; J45.909 Unspecified asthma, uncomplicated; K21.9 Gastro-esophageal reflux disease without esophagitis; F31.9 Bipolar disorder, unspecified; F41.9 Anxiety disorder, unspecified; E11.9 Type 2 diabetes mellitus without complications; E66.9 Obesity, unspecified; Z68.43 Body mass index [BMI] 50.0-59.9, adult; Z88.6 Allergy status to analgesic agent; Z88.8 Allergy status to other drugs, medicaments and biological substances; Z88.5 Allergy status to narcotic agent; Z88.0 Allergy status to penicillin; Z88.2 Allergy status to sulfonamides; Z91.030 Bee allergy status; Z79.4 Long term (current) use of insulin; Z79.899 Other long term (current) drug therapy
CPT/HCPCS: 36415; 80053; 80307; 82150; 83605; 83735; 85025; 99284; U0002

== ENCOUNTER 2020-02-12 00:51 | Emergency (ER) | payer MEDICAID ==
[2020-02-12] MEDS ORDERED: Sodium Chloride 0.9% 1,000 ML IV ONE (01:01)
[2020-02-12] MEDS ORDERED: Dexamethasone 4 MG/ML SDV IV ONE (01:35)
[2020-02-12 01:38] LABS: ANION GAP 15.8 mEq/L (7-13); CHLORIDE,CL 98 mmol/L (98-107); SODIUM,NA 134 mmol/L (136-145)
--- NOTE | 2020-02-12 01:49 | EDM.PDOC ---
ED HPI GENERAL MEDICAL PROBLEM - General Chief Complaint: General Stated Complaint: AMBULANCE Time Seen by Provider: 02/12/20 01:15 Source of Information: Reports: Patient, EMS, EMS Notes Reviewed, RN, RN Notes Reviewed History Limitations: Reports: No Limitations - History of Present Illness INITIAL COMMENTS - FREE TEXT/NARRATIVE: Patient presents to ER per [place] ambulance service with complaint of body aches, cough, chest pains, shortness of breath, nausea, vomiting, diarrhea, abdominal pain, loss of taste, loss of smell. Patient states she was diagnosed with positive COVID-19 on February 07, 2020. Patient states she was asymptomatic at that time, and her symptoms began last evening. She states the symptoms have progressively gotten worse through today. States she has used Tylenol yesterday for the symptoms. Onset: Gradual Chest Pain Score (Numeric/FACES): 9 - Related Data Allergies Allergy/AdvReac Type Severity Reaction Status Date / Time acetaminophen [From [place]] Allergy Hives Verified 02/12/20 01:11 escitalopram [From Lexapro] Allergy Rash Verified 02/12/20 01:11 fluoxetine [From Prozac] Allergy Rash Verified 02/12/20 01:11 hydrocodone [From [place]] Allergy Hives Verified 02/12/20 01:11 ibuprofen Allergy Rash Verified 02/12/20 01:11 Penicillins Allergy Hives Verified 02/12/20 01:11 ranitidine Allergy Hives Verified 02/12/20 01:11 Sulfa (Sulfonamide Allergy Rash Verified 02/12/20 01:11 Antibiotics) zolpidem [From Ambien] AdvReac Nausea and Verified 02/12/20 01:11 Vomiting BEE STING Allergy Unknown Anaphylactic Uncoded 02/12/20 01:11 Shock metformin Allergy Hives Uncoded 02/12/20 01:11 Home Meds: Home Meds Albuterol Sulfate 2.5 mg IH Q4H PRN 11/28/18 [History] Albuterol [Proventil HFA] 2 puff INH Q4H PRN 11/28/18 [History] Cetirizine [ZyrTEC] 10 mg PO DAILY 11/28/18 [History] Cyanocobalamin (Vitamin B-12) [Vitamin B-12] 1,000 mcg PO .WEEKLY 11/28/18 [History] EPINEPHrine [Epipen] 0.3 mg IM ASDIRECTED PRN 11/28/18 [History] Fluticasone Propion/Salmeterol [Fluticasone-Salmeterol 250-50] 1 each IH DAILY 11/28/18 [History] Fluticasone Propionate [Flonase] 1 - 2 spray NASBOTH BID 11/28/18 [History] Lisinopril 40 mg PO DAILY 11/28/18 [History] Omeprazole 20 mg PO DAILY 11/28/18 [History] Ondansetron [Zofran ODT] 4 mg PO Q8H PRN 11/28/18 [History] Orphenadrine [Norflex] 100 mg PO BID PRN 11/28/18 [History] Prazosin HCl [Prazosin] 4 mg PO BEDTIME 11/28/18 [History] QUEtiapine [SEROquel] 150 mg PO BEDTIME 11/28/18 [History] Sennosides/Docusate Sodium [Senna Plus Tablet] 1 each PO DAILY 11/28/18 [History] Solifenacin Succinate [Vesicare] 10 mg PO DAILY 11/28/18 [History] Vitamin D3 50950 Units Capsule 50,000 units PO DAILY 11/28/18 [History] amLODIPine Besylate [Amlodipine Besylate] 10 mg PO DAILY 11/28/18 [History] atorvaSTATin [Lipitor] 10 mg PO DAILY 11/28/18 [History] Multivitamin with Minerals [Multivitamins with Minerals] 1 tab PO DAILY 12/03/18 [History] Cranberry Fruit [Cranberry] 500 mg PO BID 12/07/18 [History] Insulin Aspart [NovoLOG] 20 unit SQ ASDIRECTED 01/18/19 [History] Insulin Glarg,Human.Rec.Analog [Lantus] 76 unit SUBCUT ASDIRECTED 01/18/19 [History] Topiramate [Topamax] 50 mg PO BID 01/18/19 [History] Clindamycin HCl 300 mg PO TID 02/07/20 [History] Mupirocin Oint [Bactroban Oint] 22 gm TP BID PRN 02/07/20 [History] Past Medical History - Past Health History Medical/Surgical History: Denies Medical/Surgical History HEENT History: Reports: None Cardiovascular History: Reports: High Cholesterol, Hypertension Respiratory History: Reports: Asthma Gastrointestinal History: Reports: Bowel Obstruction, GERD Genitourinary History: Reports: None REGRADER History: Reports: None, , Other (See Below) Other REGRADER History: tubal ligation Musculoskeletal History: Reports: Other (See Below) Other Musculoskeletal History: Tendonitis, carpel tunnel alfonso. Neurological History: Reports: Migraines Psychiatric History: Reports: Anxiety, Bipolar, Depression, PTSD Other Psychiatric History: pt unable to remember medications Endocrine/Metabolic History: Reports: Diabetes, Type II, Obesity/BMI 30+ Hematologic History: Reports: None Immunologic History: Reports: None Oncologic (Cancer) History: Reports: None Dermatologic History: Reports: None - Infectious Disease History Infectious Disease History: Reports: None - Past Surgical History Head Surgeries/Procedures: Reports: None GI Surgical History: Reports: Appendectomy Musculoskeletal Surgical History: Reports: Carpal Tunnel Social & Family History - Family History Family Medical History: Noncontributory - Tobacco Use Tobacco Use Status *Q: Never Tobacco User Second Hand Smoke Exposure: No - Caffeine Use Caffeine Use: Reports: Coffee, Tea Other Caffeine Use: AVERAGE OF 12 OZ TEA DURING THE DAY - Recreational Drug Use Recreational Drug Use: No ED ROS GENERAL - Review of Systems Review Of Systems: Comprehensive ROS is negative, except as noted in HPI. ED EXAM, GENERAL - Physical Exam Exam: See Below Exam Limited By: No Limitations General Appearance: Alert, WD/WN, Mild Distress, Other (disheveled) Eye Exam: Bilateral Eye: EOMI, Normal Inspection Ears: Normal External Exam, Hearing Grossly Normal Nose: Normal Inspection Throat/Mouth: Normal Inspection, Normal Voice, No Airway Compromise Head: Atraumatic, Normocephalic Neck: Normal Inspection, Supple, Non-Tender, Full Range of Motion Respiratory/Chest: No Respiratory Distress, No Accessory Muscle Use, Chest Non- Tender, Decreased Breath Sounds Cardiovascular: Normal Peripheral Pulses, Regular Rate, Rhythm, No Edema, No Gallop, No JVD, No Murmur, No Rub, Tachycardia Peripheral Pulses: 2+: Radial (L), Radial (R) GI/Abdominal: Normal Bowel Sounds, Soft, Non-Tender (Female) Exam: Deferred Rectal (Female) Exam: Deferred Back Exam: Normal Inspection, Full Range of Motion, NT Extremities: Normal Inspection, Normal Range of Motion, Non-Tender, Normal Capillary Refill, No Pedal Edema Neurological: Alert, Oriented, CN II-XII Intact, Normal Cognition, Normal Gait, Normal Reflexes, No Motor/Sensory Deficits Psychiatric: Normal Affect, Normal Mood Skin Exam: Warm, Dry, Intact, Normal Color, No Rash Lymphatic: No Adenopathy Course - Vital Signs Last Recorded V/S: Last Vital Signs Temp 100.8 F H 02/12/20 01:52 Pulse 102 H 02/12/20 01:52 Resp 20 02/12/20 01:52 BP 136/66 02/12/20 01:52 Pulse Ox 99 02/12/20 01:52 - Orders/Labs/Meds Orders: Active Orders 24 hr Category Date Time Status RT Post Treatment Assessment [RC] Click to Edit Care 02/12/20 03:02 Active RT Pre-Treatment Assessment [RC] Click to Edit Care 02/12/20 03:02 Active Isolation [COMM] Routine Oth 02/12/20 01:01 Active Labs: Laboratory Tests 02/12/20 02/12/20 02/12/20 Range/Units 01:03 01:03 01:03 WBC 6.7 (5.0-10.0) 10^3/uL RBC 5.05 (4.2-5.4) 10^6/uL Hgb 14.9 D (12.0-16.0) g/dL Hct 44.0 (37.0-47.0) % MCV 87.1 (80-100) fL MCH 29.5 (27.0-34.0) pg MCHC 33.9 (33.0-35.0) g/dL Plt Count 232 (150-450) 10^3/uL Neut % (Auto) 62.5 (42.2-75.2) % Lymph % (Auto) 26.6 (20.5-50.1) % [place] % (Auto) 8.5 H (2-8) % Eos % (Auto) 2.1 (1.0-3.0) % Baso % (Auto) 0.3 (0.0-1.0) % D-Dimer, Quantitative 291 (0-400) ng/mL Sodium 134 L (136-145) mmol/L Potassium 3.8 (3.5-5.1) mmol/L Chloride 98 (98-107) mmol/L Carbon Dioxide 24 (21-32) mmol/L Anion Gap 15.8 H (7-13) mEq/L BUN 13 (7-18) mg/dL Creatinine 0.70 (0.55-1.02) mg/dL Est Cr Clr Drug Dosing 83.03 mL/min Estimated GFR (MDRD) > 60 BUN/Creatinine Ratio 18.6 (No establ ref range) Glucose 181 H (74-99) mg/dL Calcium 8.2 L (8.5-10.1) mg/dL Total Bilirubin 0.3 (0.2-1.0) mg/dL AST 21 (15-37) U/L ALT 49 (14-59) U/L Alkaline Phosphatase 97 (46-116) U/L Lactate Dehydrogenase 138 (81-234) U/L Troponin I (0.000-0.056) ng/mL C-Reactive Protein 1.2 H (0.0-0.9) mg/dL Total Protein 7.5 (6.4-8.2) g/dL Albumin 3.4 (3.4-5.0) g/dL Globulin 4.1 Albumin/Globulin Ratio 0.8 02/12/20 Range/Units 01:03 WBC (5.0-10.0) 10^3/uL RBC (4.2-5.4) 10^6/uL Hgb (12.0-16.0) g/dL Hct (37.0-47.0) % MCV (80-100) fL MCH (27.0-34.0) pg MCHC (33.0-35.0) g/dL Plt Count (150-450) 10^3/uL Neut % (Auto) (42.2-75.2) % Lymph % (Auto) (20.5-50.1) % [place] % (Auto) (2-8) % Eos % (Auto) (1.0-3.0) % Baso % (Auto) (0.0-1.0) % D-Dimer, Quantitative (0-400) ng/mL Sodium (136-145) mmol/L Potassium (3.5-5.1) mmol/L Chloride (98-107) mmol/L Carbon Dioxide (21-32) mmol/L Anion Gap (7-13) mEq/L BUN (7-18) mg/dL Creatinine (0.55-1.02) mg/dL Est Cr Clr Drug Dosing mL/min Estimated GFR (MDRD) BUN/Creatinine Ratio (No establ ref range) Glucose (74-99) mg/dL Calcium (8.5-10.1) mg/dL Total Bilirubin (0.2-1.0) mg/dL AST (15-37) U/L ALT (14-59) U/L Alkaline Phosphatase (46-116) U/L Lactate Dehydrogenase (81-234) U/L Troponin I < 0.017 (0.000-0.056) ng/mL C-Reactive Protein (0.0-0.9) mg/dL Total Protein (6.4-8.2) g/dL Albumin (3.4-5.0) g/dL Globulin Albumin/Globulin Ratio Meds: Medications Discontinued Medications Generic Name Dose Route Start Last Admin Trade Name Freq PRN Reason Stop Dose Admin Acetaminophen 650 mg 02/12/20 01:50 02/12/20 01:55 Tylenol PO 02/12/20 01:51 650 mg NOW ONE Administration Albuterol 6.7 gm 02/12/20 03:02 Proventil Hfa INH 02/12/20 03:03 ONETIME ONE Azithromycin 500 mg 02/12/20 03:24 Zithromax PO 02/12/20 03:25 ONETIME ONE Benzonatate 200 mg 02/12/20 03:13 Tessalon Perles PO 02/12/20 03:14 ONETIME ONE Dexamethasone 6 mg 02/12/20 01:35 02/12/20 01:51 Decadron IV 02/12/20 01:36 6 mg ONETIME ONE Administration Sodium Chloride 1,000 mls @ 999 mls/hr 02/12/20 01:01 02/12/20 01:08 Normal Saline IV 02/12/20 02:01 999 mls/hr .BOLUS ONE Administration - Radiology Interpretation Free Text/Narrative:: Chest xray: PROCEDURE INFORMATION: Exam: XR Chest, 1 View Exam date and time: 02/12/2020 2:29 AM Age: 39 years old Clinical indication: Chest pain; Type not specified TECHNIQUE: Imaging protocol: XR of the chest Views: 1 view. COMPARISON: No relevant prior studies available. FINDINGS: Lungs: The the there is airspace opacity right suprahilar region worrisome for pneumonia. Pleural space: Unremarkable. No pleural effusion. No pneumothorax. Heart/Mediastinum: There is cardiomegaly. Bones/joints: Unremarkable. IMPRESSION: Right suprahilar airspace opacity worrisome for pneumonia. Thank you for allowing us to participate in the care of your patient. Dictated and Authenticated by: Padmini Mcdaniel MD 02/12/2020 3:19 AM Central Time ([place] & [place]) See rad report Departure - Departure Time of Disposition: 03:26 Disposition: Home, Self-Care 01 Condition: Fair Clinical Impression: COVID-19, Pneumonia due to COVID-19 virus - Discharge Information *PRESCRIPTION DRUG MONITORING PROGRAM REVIEWED*: No *COPY OF PRESCRIPTION DRUG MONITORING REPORT IN PATIENT JUSTIN: No Instructions: COVID-19 Frequently Asked Questions, COVID-19: How to Protect Yourself and Others - CDC, Prevent the Spread of COVID-19 if You Are Sick - CDC, Community-Acquired Pneumonia, Adult, [id number] Forms: ED Department Discharge Additional Instructions: Drink plenty of water Quarantine until you are told by the [place] [facility] you can stop Return to the ER with worsening of symptoms Use Albuterol inhaler 1-2 puffs every 4 hours as needed for shortness of breath or cough RX: Tesekta Juárez, Azithromycin May use over the counter cough medication May use Tylenol and/or Ibuprofen as directed for pain/fever Rest Sepsis Event Note (ED) - Evaluation Sepsis Screening Result: No Definite Risk - Focused Exam Vital Signs: Vital Signs Temp Pulse Resp BP Pulse Ox 02/12/20 01:52 100.8 F H 102 H 20 136/66 99 02/12/20 00:51 99.3 F 116 H 20 147/55 H 96 - My Orders Last 24 Hours: My Active Orders 02/12/20 01:01 Isolation [COMM] Routine 02/12/20 03:02 RT Post Treatment Assessment [RC] Click to Edit RT Pre-Treatment Assessment [RC] Click to Edit - Assessment/Plan Last 24 Hours: My Active Orders 02/12/20 01:01 Isolation [COMM] Routine 02/12/20 03:02 RT Post Treatment Assessment [RC] Click to Edit RT Pre-Treatment Assessment [RC] Click to Edit
[2020-02-12] MEDS ORDERED: Acetaminophen 325 MG Tab PO ONE (01:50)
[2020-02-12] MEDS ORDERED: Albuterol 6.7 GM Inhaler INH ONE (03:02)
[2020-02-12] MEDS ORDERED: Benzonatate 100 MG Cap PO ONE (03:13)
--- NOTE | 2020-02-12 03:20 | CR ---
PROCEDURE INFORMATION: Exam: XR Chest, 1 View Exam date and time: 02/12/2020 2:29 AM Age: 39 years old Clinical indication: Chest pain; Type not specified TECHNIQUE: Imaging protocol: XR of the chest Views: 1 view. COMPARISON: No relevant prior studies available. FINDINGS: Lungs: The the there is airspace opacity right suprahilar region worrisome for pneumonia. Pleural space: Unremarkable. No pleural effusion. No pneumothorax. Heart/Mediastinum: There is cardiomegaly. Bones/joints: Unremarkable. IMPRESSION: Right suprahilar airspace opacity worrisome for pneumonia.
[2020-02-12] MEDS ORDERED: Azithromycin 250 MG Tab PO ONE (03:24)
== END 2020-02-12 03:35 | disposition home or self-care (01) ==
LOC: DL.ED 00:51
DX: U07.1 COVID-19 (principal); J12.89 Other viral pneumonia; I10 Essential (primary) hypertension; E78.00 Pure hypercholesterolemia, unspecified; J45.909 Unspecified asthma, uncomplicated; K21.9 Gastro-esophageal reflux disease without esophagitis; Z98.51 Tubal ligation status; F41.9 Anxiety disorder, unspecified; F31.9 Bipolar disorder, unspecified; E11.9 Type 2 diabetes mellitus without complications; E66.9 Obesity, unspecified; Z90.49 Acquired absence of other specified parts of digestive tract; Z79.4 Long term (current) use of insulin; Z91.030 Bee allergy status; Z88.8 Allergy status to other drugs, medicaments and biological substances; Z88.0 Allergy status to penicillin; Z88.5 Allergy status to narcotic agent; Z79.899 Other long term (current) drug therapy; Z68.43 Body mass index [BMI] 50.0-59.9, adult
CPT/HCPCS: 36415; 71045; 80053; 83615; 84484; 85025; 85379; 86140; 87804; 96374; 99285; A9270; J1100; J7030; 99283

== ENCOUNTER 2020-02-15 21:52 | Inpatient (IN) | payer MEDICAID ==
[2020-02-15] MEDS ORDERED: Dexamethasone 4 MG/ML SDV ONE (22:19)
[2020-02-15] MEDS ORDERED: Dexamethasone 4 MG/ML SDV IVPUSH ONE (22:20)
[2020-02-15] MEDS ORDERED: Sodium Chloride 0.9% 1,000 ML IV ONE (22:22)
--- NOTE | 2020-02-15 22:27 | EDM.PDOC ---
ED HPI GENERAL MEDICAL PROBLEM - General Chief Complaint: Respiratory Problem Stated Complaint: AMBULANCE Time Seen by Provider: 02/15/20 22:00 Source of Information: Reports: Patient, EMS History Limitations: Reports: No Limitations - History of Present Illness INITIAL COMMENTS - FREE TEXT/NARRATIVE: ED via [facility] with c/o increased SOB, cough. Diagnosed 02/06 positive COVID. sx onset one week prior, past 3 days increasing SOB. EMS report sat 80% on RA increase 95% on 3 L. Diabetic blood sugars 200-300 no nausea or vomiting but unable to eat or drink as increases cough. EMS report residence in dark damp moldy basement apartment. Low grade fevers, chills. Tylenol at 6am and 8pm today Generalized Pain Score (Numeric/FACES): 9 - Related Data Allergies Allergy/AdvReac Type Severity Reaction Status Date / Time acetaminophen [From [place]] Allergy Hives Verified 02/15/20 22:18 escitalopram [From Lexapro] Allergy Rash Verified 02/15/20 22:18 fluoxetine [From Prozac] Allergy Rash Verified 02/15/20 22:18 hydrocodone [From [place]] Allergy Hives Verified 02/15/20 22:18 ibuprofen Allergy Rash Verified 02/15/20 22:18 Penicillins Allergy Hives Verified 02/15/20 22:18 ranitidine Allergy Hives Verified 02/15/20 22:18 Sulfa (Sulfonamide Allergy Rash Verified 02/15/20 22:18 Antibiotics) zolpidem [From Ambien] AdvReac Nausea and Verified 02/15/20 22:18 Vomiting BEE STING Allergy Unknown Anaphylactic Uncoded 02/12/20 01:11 Shock metformin Allergy Hives Uncoded 02/12/20 01:11 Home Meds: Home Meds Albuterol Sulfate 2.5 mg IH Q4H PRN 11/28/18 [History] Albuterol [Proventil HFA] 2 puff INH Q4H PRN 11/28/18 [History] Cetirizine [ZyrTEC] 10 mg PO DAILY 11/28/18 [History] Cyanocobalamin (Vitamin B-12) [Vitamin B-12] 1,000 mcg PO .WEEKLY 11/28/18 [History] EPINEPHrine [Epipen] 0.3 mg IM ASDIRECTED PRN 11/28/18 [History] Fluticasone Propion/Salmeterol [Fluticasone-Salmeterol 250-50] 1 each IH DAILY 11/28/18 [History] Fluticasone Propionate [Flonase] 1 - 2 spray NASBOTH BID 11/28/18 [History] Lisinopril 40 mg PO DAILY 11/28/18 [History] Omeprazole 20 mg PO DAILY 11/28/18 [History] Ondansetron [Zofran ODT] 4 mg PO Q8H PRN 11/28/18 [History] Orphenadrine [Norflex] 100 mg PO BID PRN 11/28/18 [History] Prazosin HCl [Prazosin] 4 mg PO BEDTIME 11/28/18 [History] QUEtiapine [SEROquel] 150 mg PO BEDTIME 11/28/18 [History] Sennosides/Docusate Sodium [Senna Plus Tablet] 1 each PO DAILY 11/28/18 [History] Solifenacin Succinate [Vesicare] 10 mg PO DAILY 11/28/18 [History] Vitamin D3 72685 Units Capsule 50,000 units PO DAILY 11/28/18 [History] amLODIPine Besylate [Amlodipine Besylate] 10 mg PO DAILY 11/28/18 [History] atorvaSTATin [Lipitor] 10 mg PO DAILY 11/28/18 [History] Multivitamin with Minerals [Multivitamins with Minerals] 1 tab PO DAILY 12/03/18 [History] Cranberry Fruit [Cranberry] 500 mg PO BID 12/07/18 [History] Insulin Aspart [NovoLOG] 20 unit SQ ASDIRECTED 01/18/19 [History] Insulin Glarg,Human.Rec.Analog [Lantus] 76 unit SUBCUT ASDIRECTED 01/18/19 [History] Topiramate [Topamax] 50 mg PO BID 01/18/19 [History] Mupirocin Oint [Bactroban Oint] 22 gm TP BID PRN 02/07/20 [History] Past Medical History - Past Health History Medical/Surgical History: Denies Medical/Surgical History HEENT History: Reports: None Cardiovascular History: Reports: High Cholesterol, Hypertension Respiratory History: Reports: Asthma Gastrointestinal History: Reports: None, Bowel Obstruction, GERD Genitourinary History: Reports: None TRANSCRIPTION MANAGER History: Reports: None, , Other (See Below) Other TRANSCRIPTION MANAGER History: tubal ligation Musculoskeletal History: Reports: Other (See Below) Other Musculoskeletal History: Tendonitis, carpel tunnel alfonso. Neurological History: Reports: Migraines Psychiatric History: Reports: Anxiety, Bipolar, Depression, PTSD Other Psychiatric History: pt unable to remember medications Endocrine/Metabolic History: Reports: Diabetes, Type II, Obesity/BMI 30+ Hematologic History: Reports: None Immunologic History: Reports: None Oncologic (Cancer) History: Reports: None Dermatologic History: Reports: None - Infectious Disease History Infectious Disease History: Reports: None - Past Surgical History Head Surgeries/Procedures: Reports: None GI Surgical History: Reports: Appendectomy Musculoskeletal Surgical History: Reports: Carpal Tunnel Social & Family History - Family History Family Medical History: No Pertinent Family History - Tobacco Use Tobacco Use Status *Q: Never Tobacco User - Caffeine Use Caffeine Use: Reports: Coffee, Tea Other Caffeine Use: AVERAGE OF 12 OZ TEA DURING THE DAY - Recreational Drug Use Recreational Drug Use: No ED ROS GENERAL - Review of Systems Review Of Systems: Comprehensive ROS is negative, except as noted in HPI. ED EXAM, GENERAL - Physical Exam Exam: See Below Exam Limited By: No Limitations General Appearance: Alert, No Apparent Distress, Mild Distress, Moderate Distress (with activity), Obese Eye Exam: Bilateral Eye: EOMI Ears: Normal External Exam, Hearing Grossly Normal Nose: Normal Inspection Throat/Mouth: Normal Inspection Head: Atraumatic Neck: Normal Inspection Respiratory/Chest: Decreased Breath Sounds, Other (ocassional episodic dry cough). No: Wheezing Cardiovascular: Normal Peripheral Pulses, Regular Rate, Rhythm, Tachycardia GI/Abdominal: Normal Bowel Sounds, Soft Back Exam: Normal Inspection, Full Range of Motion Extremities: Normal Inspection, Normal Range of Motion Neurological: Alert, Oriented, Normal Cognition Psychiatric: Normal Affect, Normal Mood Skin Exam: Warm, Dry, Other (dark callouses bilateral plantar surface. lesion left lateral mid foot with dressing ) Course - Vital Signs Last Recorded V/S: Last Vital Signs Temp 99.6 F 02/15/20 21:57 Pulse 101 H 02/15/20 23:44 Resp 28 H 02/15/20 23:44 BP 121/49 L 02/15/20 23:44 Pulse Ox 99 02/15/20 23:44 - Orders/Labs/Meds Orders: Active Orders 24 hr Category Date Time Status Admission Diagnosis [ADT] Stat ADT 02/15/20 23:47 Ordered Admission Status [Patient Status] [ADT] Routine ADT 02/15/20 23:47 Ordered Blood Glucose Check, Bedside [RC] ONETIME Care 02/15/20 22:25 Active Sodium Chloride 0.9% [Normal Saline] 1,000 ml Med 02/15/20 22:22 Active IV .BOLUS Medication Orders Sodium Chloride (Normal Saline) 1,000 mls @ 50 mls/hr IV .BOLUS ONE Stop: 02/16/20 18:21 Last Admin: 02/15/20 22:35 Dose: 50 mls/hr Documented by: ROSA Labs: Laboratory Tests 02/15/20 02/15/20 02/15/20 Range/Units 22:16 22:16 22:16 WBC 4.5 L (5.0-10.0) 10^3/uL RBC 4.91 (4.2-5.4) 10^6/uL Hgb 14.4 (12.0-16.0) g/dL Hct 41.4 (37.0-47.0) % MCV 84.3 (80-100) fL MCH 29.3 (27.0-34.0) pg MCHC 34.8 (33.0-35.0) g/dL Plt Count 203 (150-450) 10^3/uL Neut % (Auto) 47.1 (42.2-75.2) % Lymph % (Auto) 45.2 (20.5-50.1) % Kendall % (Auto) 7.5 (2-8) % Eos % (Auto) 0.0 L (1.0-3.0) % Baso % (Auto) 0.2 (0.0-1.0) % D-Dimer, Quantitative 929 H (0-400) ng/mL Sodium 132 L (136-145) mmol/L Potassium 3.5 (3.5-5.1) mmol/L Chloride 97 L (98-107) mmol/L Carbon Dioxide 21 (21-32) mmol/L Anion Gap 17.5 H (7-13) mEq/L BUN 9 (7-18) mg/dL Creatinine 0.80 (0.55-1.02) mg/dL Est Cr Clr Drug Dosing TNP Estimated GFR (MDRD) > 60 BUN/Creatinine Ratio 11.2 (No establ ref range) Glucose 136 H (74-99) mg/dL Lactic Acid (0.4-2.0) mmol/L Calcium 8.1 L (8.5-10.1) mg/dL Magnesium 1.6 L (1.8-2.4) mg/dL Total Bilirubin 0.3 (0.2-1.0) mg/dL AST 30 (15-37) U/L ALT 56 (14-59) U/L Alkaline Phosphatase 98 (46-116) U/L Total Protein 7.1 (6.4-8.2) g/dL Albumin 3.1 L (3.4-5.0) g/dL Globulin 4.0 Albumin/Globulin Ratio 0.78 Amylase 65 (25-115) U/L Lipase 110 (73-393) U/L HCG, Qual 02/15/20 02/15/20 Range/Units 22:16 22:16 WBC (5.0-10.0) 10^3/uL RBC (4.2-5.4) 10^6/uL Hgb (12.0-16.0) g/dL Hct (37.0-47.0) % MCV (80-100) fL MCH (27.0-34.0) pg MCHC (33.0-35.0) g/dL Plt Count (150-450) 10^3/uL Neut % (Auto) (42.2-75.2) % Lymph % (Auto) (20.5-50.1) % Kendall % (Auto) (2-8) % Eos % (Auto) (1.0-3.0) % Baso % (Auto) (0.0-1.0) % D-Dimer, Quantitative (0-400) ng/mL Sodium (136-145) mmol/L Potassium (3.5-5.1) mmol/L Chloride (98-107) mmol/L Carbon Dioxide (21-32) mmol/L Anion Gap (7-13) mEq/L BUN (7-18) mg/dL Creatinine (0.55-1.02) mg/dL Est Cr Clr Drug Dosing Estimated GFR (MDRD) BUN/Creatinine Ratio (No establ ref range) Glucose (74-99) mg/dL Lactic Acid 1.1 (0.4-2.0) mmol/L Calcium (8.5-10.1) mg/dL Magnesium (1.8-2.4) mg/dL Total Bilirubin (0.2-1.0) mg/dL AST (15-37) U/L ALT (14-59) U/L Alkaline Phosphatase (46-116) U/L Total Protein (6.4-8.2) g/dL Albumin (3.4-5.0) g/dL Globulin Albumin/Globulin Ratio Amylase (25-115) U/L Lipase (73-393) U/L HCG, Qual Negative Meds: Medications Generic Name Dose Route Start Last Admin Trade Name Freq PRN Reason Stop Dose Admin Sodium Chloride 1,000 mls @ 50 mls/hr 02/15/20 22:22 02/15/20 22:35 Normal Saline IV 02/16/20 18:21 50 mls/hr .BOLUS ONE Administration Discontinued Medications Generic Name Dose Route Start Last Admin Trade Name Freq PRN Reason Stop Dose Admin Dexamethasone 6 mg 02/15/20 22:20 02/15/20 22:35 Decadron IVPUSH 02/15/20 22:21 6 mg ONETIME ONE Administration Dexamethasone Confirm 02/15/20 22:19 02/15/20 22:22 Decadron Administered 02/15/20 22:20 Not Given Dose 8 mg .ROUTE .STK-MED ONE - Re-Assessments/Exams Free Text/Narrative Re-Assessment/Exam: 02/15/20 23:[address] Santana NAVARRO Hospitalist , will admit. Departure - Departure Time of Disposition: 23:54 Disposition: Admitted As Inpatient 68 Condition: Good Clinical Impression: Pneumonia due to COVID-19 virus, Hypoxemia - Discharge Information *PRESCRIPTION DRUG MONITORING PROGRAM REVIEWED*: No *COPY OF PRESCRIPTION DRUG MONITORING REPORT IN PATIENT JUSTIN: No Forms: ED Department Discharge Sepsis Event Note (ED) - Evaluation Sepsis Screening Result: Possible Sepsis Risk - Focused Exam Vital Signs: Vital Signs Temp Pulse Resp BP Pulse Ox 02/15/20 23:44 101 H 28 H 121/49 L 99 02/15/20 21:57 99.6 F 117 H 32 H 143/72 H 84 L - My Orders Last 24 Hours: My Active Orders 02/15/20 22:22 Sodium Chloride 0.9% [Normal Saline] 1,000 ml IV .BOLUS 02/15/20 22:25 Blood Glucose Check, Bedside [RC] ONETIME 02/15/20 23:47 Admission Diagnosis [ADT] Stat Admission Status [Patient Status] [ADT] Routine - Assessment/Plan Last 24 Hours: My Active Orders 02/15/20 22:22 Sodium Chloride 0.9% [Normal Saline] 1,000 ml IV .BOLUS 02/15/20 22:25 Blood Glucose Check, Bedside [RC] ONETIME 02/15/20 23:47 Admission Diagnosis [ADT] Stat Admission Status [Patient Status] [ADT] Routine
[2020-02-15 22:43] LABS: ANION GAP 17.5 mEq/L (7-13); CHLORIDE,CL 97 mmol/L (98-107); SODIUM,NA 132 mmol/L (136-145)
--- NOTE | 2020-02-15 23:36 | CT ---
PROCEDURE INFORMATION: Exam: CT Chest Without Contrast Exam date and time: 02/15/2020 11:00 PM Age: 39 years old Clinical indication: Shortness of breath; Additional info: Covid positive, SOB hypoxia asthma HX TECHNIQUE: Imaging protocol: Computed tomography of the chest without contrast. Radiation optimization: All CT scans at this facility use at least one of these dose optimization techniques: automated exposure control; mA and/or kV adjustment per patient size (includes targeted exams where dose is matched to clinical indication); or iterative reconstruction. COMPARISON: CR Chest 1V Frontal 02/12/2020 2:29 AM FINDINGS: There is extensive patchy right-sided consolidation. There are very small foci in the left lower lobe. There are findings of previous granulomatous infection. The mediastinum is normal in appearance. There is no pleural fluid. IMPRESSION: Bilateral pneumonia, right much greater than left.
[2020-02-16] MEDS ORDERED: Glucagon,Human Recombinant 1 MG Vial IM PRN ×2 (00:38→00:47)
[2020-02-16] MEDS ORDERED: 50% Dextrose in Water 50 ML Syringe IVPUSH PRN (00:38)
[2020-02-16] MEDS ORDERED: 50% Dextrose in Water 50 ML Syringe IV PRN ×2 (00:38→00:47)
[2020-02-16] MEDS ORDERED: Albuterol 6.7 GM Inhaler INH PRN (00:43)
[2020-02-16] MEDS ORDERED: oxyCODONE 5 MG Tab PO PRN (00:44)
[2020-02-16] MEDS ORDERED: Ibuprofen 400 MG Tab PO PRN (00:44)
[2020-02-16] MEDS ORDERED: Temazepam 15 MG Cap PO PRN (00:44)
[2020-02-16] MEDS ORDERED: Ondansetron 4 MG/2 ML SDV IVPUSH PRN (00:44)
[2020-02-16] MEDS ORDERED: Ondansetron 4 MG Tab.DIS PO PRN (00:44)
[2020-02-16] MEDS ORDERED: Sodium Chloride 0.9% 10 ML Syringe FLUSH PRN (00:44)
--- NOTE | 2020-02-16 01:03 | PCM.HP ---
H&P History of Present Illness - General Date of Service: 02/16/20 Admit Problem/Dx: Admission Diagnosis/Problem Admission Diagnosis/Problem Pneumonia Source of Information: Patient, Provider - History of Present Illness Initial Comments - Free Text/Narative: 39-year-old with history of bipolar disorder, morbid obesity, diabetes, asthma. The patient developed nausea, vomiting around 06 February. Tested positive for Covid. Later the patient came to the emergency room on 11 February. Was given steroid and azithromycin. On the day of this admission the patient presented with increasing shortness of breath. He was noted to have oxygen saturation of 80% on room air at home. She says she had fever up to 101.2, continue nausea, diarrhea. Eating makes the nausea worse. Has chest pain with deeper breaths. Generalized Pain Score (Numeric/FACES): 9 - Related Data Allergies/Adverse Reactions: Allergies Allergy/AdvReac Type Severity Reaction Status Date / Time acetaminophen [From [place]] Allergy Hives Verified 02/15/20 22:18 escitalopram [From Lexapro] Allergy Rash Verified 02/15/20 22:18 fluoxetine [From Prozac] Allergy Rash Verified 02/15/20 22:18 hydrocodone [From [place]] Allergy Hives Verified 02/15/20 22:18 ibuprofen Allergy Rash Verified 02/15/20 22:18 Penicillins Allergy Hives Verified 02/15/20 22:18 ranitidine Allergy Hives Verified 02/15/20 22:18 Sulfa (Sulfonamide Allergy Rash Verified 02/15/20 22:18 Antibiotics) zolpidem [From Ambien] AdvReac Nausea and Verified 02/15/20 22:18 Vomiting BEE STING Allergy Unknown Anaphylactic Uncoded 02/12/20 01:11 Shock metformin Allergy Hives Uncoded 02/12/20 01:11 Home Medications: Home Meds Albuterol Sulfate 2.5 mg IH Q4H PRN 11/28/18 [History] Albuterol [Proventil HFA] 2 puff INH Q4H PRN 11/28/18 [History] Cetirizine [ZyrTEC] 10 mg PO DAILY 11/28/18 [History] Cyanocobalamin (Vitamin B-12) [Vitamin B-12] 1,000 mcg PO .WEEKLY 11/28/18 [History] EPINEPHrine [Epipen] 0.3 mg IM ASDIRECTED PRN 11/28/18 [History] Fluticasone Propion/Salmeterol [Fluticasone-Salmeterol 250-50] 1 each IH DAILY 11/28/18 [History] Fluticasone Propionate [Flonase] 1 - 2 spray NASBOTH BID 11/28/18 [History] Lisinopril 40 mg PO DAILY 11/28/18 [History] Omeprazole 20 mg PO DAILY 11/28/18 [History] Ondansetron [Zofran ODT] 4 mg PO Q8H PRN 11/28/18 [History] Orphenadrine [Norflex] 100 mg PO BID PRN 11/28/18 [History] Prazosin HCl [Prazosin] 4 mg PO BEDTIME 11/28/18 [History] QUEtiapine [SEROquel] 150 mg PO BEDTIME 11/28/18 [History] Sennosides/Docusate Sodium [Senna Plus Tablet] 1 each PO DAILY 11/28/18 [History] Solifenacin Succinate [Vesicare] 10 mg PO DAILY 11/28/18 [History] Vitamin D3 69272 Units Capsule 50,000 units PO DAILY 11/28/18 [History] amLODIPine Besylate [Amlodipine Besylate] 10 mg PO DAILY 11/28/18 [History] atorvaSTATin [Lipitor] 10 mg PO DAILY 11/28/18 [History] Multivitamin with Minerals [Multivitamins with Minerals] 1 tab PO DAILY 12/03/18 [History] Cranberry Fruit [Cranberry] 500 mg PO BID 12/07/18 [History] Insulin Aspart [NovoLOG] 20 unit SQ ASDIRECTED 01/18/19 [History] Insulin Glarg,Human.Rec.Analog [Lantus] 76 unit SUBCUT ASDIRECTED 01/18/19 [ History] Topiramate [Topamax] 50 mg PO BID 01/18/19 [History] Mupirocin Oint [Bactroban Oint] 22 gm TP BID PRN 02/07/20 [History] Past Medical History - Past Health History Medical/Surgical History: Denies Medical/Surgical History HEENT History: Reports: None Cardiovascular History: Reports: High Cholesterol, Hypertension Respiratory History: Reports: Asthma Gastrointestinal History: Reports: None, Bowel Obstruction, GERD Genitourinary History: Reports: None DIGITAL ACCOUNT MANAGER History: Reports: None, , Other (See Below) Other OB/BYN History: tubal ligation Musculoskeletal History: Reports: Other (See Below) Other Musculoskeletal History: Tendonitis, carpel tunnel alfonso. Neurological History: Reports: Migraines Psychiatric History: Reports: Anxiety, Bipolar, Depression, PTSD Other Psychiatric History: pt unable to remember medications Endocrine/Metabolic History: Reports: Diabetes, Type II, Obesity/BMI 30+ Hematologic History: Reports: None Immunologic History: Reports: None Oncologic (Cancer) History: Reports: None Dermatologic History: Reports: None - Infectious Disease History Infectious Disease History: Reports: None - Past Surgical History Head Surgeries/Procedures: Reports: None GI Surgical History: Reports: Appendectomy Musculoskeletal Surgical History: Reports: Carpal Tunnel Social & Family History - Family History Family Medical History: No Pertinent Family History - Tobacco Use Tobacco Use Status *Q: Never Tobacco User - Caffeine Use Caffeine Use: Reports: Coffee, Tea Other Caffeine Use: AVERAGE OF 12 OZ TEA DURING THE DAY - Recreational Drug Use Recreational Drug Use: No H&P Review of Systems - Review of Systems: Review Of Systems: See Below General: Reports: Fever, Chills, Malaise, Weakness Pulmonary: Reports: Shortness of Breath, Wheezing, Pleuritic Chest Pain, Cough. Denies: Sputum Cardiovascular: Denies: Palpitations, Edema Gastrointestinal: Reports: Diarrhea, Nausea, Vomiting. Denies: Abdominal Pain Psychiatric: Denies: Confusion Exam - Exam Exam: See Below - Vital Signs Vital Signs: Last Vital Signs Temp 99.6 F 02/15/20 21:57 Pulse 101 H 02/15/20 23:44 Resp 28 H 02/15/20 23:44 BP 121/49 L 02/15/20 23:44 Pulse Ox 99 02/15/20 23:44 Weight: 313 lb - Exam Quality Assessment: Supplemental Oxygen General: Alert, Oriented Neck: Supple Lungs: Decreased Breath Sounds, Wheezing Cardiovascular: Regular Rate, Regular Rhythm GI/Abdominal Exam: Normal Bowel Sounds, Soft, Non-Tender, Other (morbidly obese) Extremities: No Pedal Edema Neuro Extensive - Mental Status: Alert, Oriented x3, Normal Mood/Affect Psychiatric: Alert, Normal Affect, Normal Mood - Patient Data Lab Results Last 24 hrs: Laboratory Results - last 24 hr 02/15/20 02/15/20 02/15/20 Range/Units 22:16 22:16 22:16 WBC 4.5 L (5.0-10.0) 10^3/uL RBC 4.91 (4.2-5.4) 10^6/uL Hgb 14.4 (12.0-16.0) g/dL Hct 41.4 (37.0-47.0) % MCV 84.3 (80-100) fL MCH 29.3 (27.0-34.0) pg MCHC 34.8 (33.0-35.0) g/dL Plt Count 203 (150-450) 10^3/uL Neut % (Auto) 47.1 (42.2-75.2) % Lymph % (Auto) 45.2 (20.5-50.1) % [place] % (Auto) 7.5 (2-8) % Eos % (Auto) 0.0 L (1.0-3.0) % Baso % (Auto) 0.2 (0.0-1.0) % D-Dimer, Quantitative 929 H (0-400) ng/mL Sodium 132 L (136-145) mmol/L Potassium 3.5 (3.5-5.1) mmol/L Chloride 97 L (98-107) mmol/L Carbon Dioxide 21 (21-32) mmol/L Anion Gap 17.5 H (7-13) mEq/L BUN 9 (7-18) mg/dL Creatinine 0.80 (0.55-1.02) mg/dL Est Cr Clr Drug Dosing TNP Estimated GFR (MDRD) > 60 BUN/Creatinine Ratio 11.2 (No establ ref range) Glucose 136 H (74-99) mg/dL Lactic Acid (0.4-2.0) mmol/L Calcium 8.1 L (8.5-10.1) mg/dL Magnesium 1.6 L (1.8-2.4) mg/dL Total Bilirubin 0.3 (0.2-1.0) mg/dL AST 30 (15-37) U/L ALT 56 (14-59) U/L Alkaline Phosphatase 98 (46-116) U/L Total Protein 7.1 (6.4-8.2) g/dL Albumin 3.1 L (3.4-5.0) g/dL Globulin 4.0 Albumin/Globulin Ratio 0.78 Amylase 65 (25-115) U/L Lipase 110 (73-393) U/L HCG, Qual 02/15/20 02/15/20 Range/Units 22:16 22:16 WBC (5.0-10.0) 10^3/uL RBC (4.2-5.4) 10^6/uL Hgb (12.0-16.0) g/dL Hct (37.0-47.0) % MCV (80-100) fL MCH (27.0-34.0) pg MCHC (33.0-35.0) g/dL Plt Count (150-450) 10^3/uL Neut % (Auto) (42.2-75.2) % Lymph % (Auto) (20.5-50.1) % [place] % (Auto) (2-8) % Eos % (Auto) (1.0-3.0) % Baso % (Auto) (0.0-1.0) % D-Dimer, Quantitative (0-400) ng/mL Sodium (136-145) mmol/L Potassium (3.5-5.1) mmol/L Chloride (98-107) mmol/L Carbon Dioxide (21-32) mmol/L Anion Gap (7-13) mEq/L BUN (7-18) mg/dL Creatinine (0.55-1.02) mg/dL Est Cr Clr Drug Dosing Estimated GFR (MDRD) BUN/Creatinine Ratio (No establ ref range) Glucose (74-99) mg/dL Lactic Acid 1.1 (0.4-2.0) mmol/L Calcium (8.5-10.1) mg/dL Magnesium (1.8-2.4) mg/dL Total Bilirubin (0.2-1.0) mg/dL AST (15-37) U/L ALT (14-59) U/L Alkaline Phosphatase (46-116) U/L Total Protein (6.4-8.2) g/dL Albumin (3.4-5.0) g/dL Globulin Albumin/Globulin Ratio Amylase (25-115) U/L Lipase (73-393) U/L HCG, Qual Negative Result Diagrams: 02/15/20 22:16 02/15/20 22:16 - Problem List (1) Diabetes SNOMED Code(s): 72033748 ICD Code: E11.9 - TYPE 2 DIABETES MELLITUS WITHOUT COMPLICATIONS Status: Acute Current Visit: Yes (2) Bipolar affective disorder SNOMED Code(s): 45230346 ICD Code: F31.9 - BIPOLAR DISORDER, UNSPECIFIED Status: Acute Current Visit: Yes (3) Hyponatremia SNOMED Code(s): 93506259 ICD Code: E87.1 - HYPO-OSMOLALITY AND HYPONATREMIA Status: Acute Current Visit: Yes (4) Hypoxemia SNOMED Code(s): 843642261 ICD Code: R09.02 - HYPOXEMIA Status: Acute Current Visit: Yes (5) Pneumonia due to COVID-19 virus SNOMED Code(s): 194466260127120383 ICD Code: U07.1 - COVID-19; J12.89 - OTHER VIRAL PNEUMONIA Status: Acute Current Visit: Yes (6) Vomiting SNOMED Code(s): 690449530 ICD Code: R11.10 - VOMITING, UNSPECIFIED Status: Acute Current Visit: No Problem List Initiated/Reviewed/Updated: Yes Orders Last 24hrs: Active Orders 24 hr Category Date Time Status Admission Diagnosis [ADT] Stat ADT 02/15/20 23:47 Ordered Admission Status [Patient Status] [ADT] Routine ADT 02/15/20 23:47 Active Antiembolic Devices [RC] PER UNIT ROUTINE Care 02/16/20 00:44 Ordered Blood Glucose Check, Bedside [RC] ONETIME Care 02/15/20 22:25 Active Glucose [Blood Glucose Check, Bedside] [RC] QIDACANDBED Care 02/16/20 00:38 Ordered Nurse Communication: Isolation [RC] ASDIRECTED Care 02/16/20 00:40 Ordered Oxygen Therapy [RC] PRN Care 02/16/20 00:44 Ordered Peripheral IV Care [RC] . DIRECTED Care 02/16/20 00:45 Ordered RT Post Treatment Assessment [RC] Click to Edit Care 02/16/20 00:43 Ordered RT Pre-Treatment Assessment [RC] Click to Edit Care 02/16/20 00:43 Ordered Up With Assistance [RC] ASDIRECTED Care 02/16/20 00:44 Ordered VTE/DVT Education [RC] PER UNIT ROUTINE Care 02/16/20 00:44 Ordered Verify Patient Consent Obtain [RC] ASDIRECTED Care 02/16/20 00:39 Ordered Vital Signs [RC] Q4H Care 02/16/20 00:44 Ordered Clear Liquid Diet [DIET] Diet 02/16/20 Breakfast Ordered ABO/RH TYPE [BBK] Routine Lab 02/16/20 00:39 Ordered BASIC METABOLIC PANEL,BMP [CHEM] DAILY Lab 02/16/20 05:00 Ordered BASIC METABOLIC PANEL,BMP [CHEM] DAILY Lab 02/17/20 05:00 Ordered BASIC METABOLIC PANEL,BMP [CHEM] DAILY Lab 02/18/20 05:00 Ordered BASIC METABOLIC PANEL,BMP [CHEM] DAILY Lab 02/19/20 05:00 Ordered BASIC METABOLIC PANEL,BMP [CHEM] DAILY Lab 02/20/20 05:00 Ordered BASIC METABOLIC PANEL,BMP [CHEM] DAILY Lab 02/21/20 05:00 Ordered BASIC METABOLIC PANEL,BMP [CHEM] DAILY Lab 02/22/20 05:00 Ordered C-REACTIVE PROTEIN [CHEM] DAILY Lab 02/16/20 05:00 Ordered C-REACTIVE PROTEIN [CHEM] DAILY Lab 02/17/20 05:00 Ordered C-REACTIVE PROTEIN [CHEM] DAILY Lab 02/18/20 05:00 Ordered C-REACTIVE PROTEIN [CHEM] DAILY Lab 02/19/20 05:00 Ordered C-REACTIVE PROTEIN [CHEM] DAILY Lab 02/20/20 05:00 Ordered C-REACTIVE PROTEIN [CHEM] DAILY Lab 02/21/20 05:00 Ordered C-REACTIVE PROTEIN [CHEM] DAILY Lab 02/22/20 05:00 Ordered CBC WITH AUTO DIFF [HEME] DAILY Lab 02/16/20 05:00 Ordered CBC WITH AUTO DIFF [HEME] DAILY Lab 02/17/20 05:00 Ordered CBC WITH AUTO DIFF [HEME] DAILY Lab 02/18/20 05:00 Ordered CBC WITH AUTO DIFF [HEME] DAILY Lab 02/19/20 05:00 Ordered CBC WITH AUTO DIFF [HEME] DAILY Lab 02/20/20 05:00 Ordered CBC WITH AUTO DIFF [HEME] DAILY Lab 02/21/20 05:00 Ordered CBC WITH AUTO DIFF [HEME] DAILY Lab 02/22/20 05:00 Ordered CULTURE BLOOD [BC] Stat Lab 02/16/20 00:43 Ordered CULTURE BLOOD [BC] Stat Lab 02/16/20 00:43 Ordered CULTURE SPUTUM + SMEAR [RM] Routine Lab 02/16/20 00:41 Ordered D-DIMER QUANTITATIVE [COAG] DAILY Lab 02/16/20 05:00 Ordered D-DIMER QUANTITATIVE [COAG] DAILY Lab 02/17/20 05:00 Ordered D-DIMER QUANTITATIVE [COAG] DAILY Lab 02/18/20 05:00 Ordered D-DIMER QUANTITATIVE [COAG] DAILY Lab 02/19/20 05:00 Ordered D-DIMER QUANTITATIVE [COAG] DAILY Lab 02/20/20 05:00 Ordered D-DIMER QUANTITATIVE [COAG] DAILY Lab 02/21/20 05:00 Ordered D-DIMER QUANTITATIVE [COAG] DAILY Lab 02/22/20 05:00 Ordered FERRITIN [CHEM] DAILY Lab 02/16/20 05:00 Ordered FERRITIN [CHEM] DAILY Lab 02/17/20 05:00 Ordered FERRITIN [CHEM] DAILY Lab 02/18/20 05:00 Ordered FERRITIN [CHEM] DAILY Lab 02/19/20 05:00 Ordered FERRITIN [CHEM] DAILY Lab 02/20/20 05:00 Ordered FERRITIN [CHEM] DAILY Lab 02/21/20 05:00 Ordered FERRITIN [CHEM] DAILY Lab 02/22/20 05:00 Ordered FRESH FROZEN PLASMA [BBK] Routine Lab 02/16/20 00:39 Ordered HEPATIC FUNCTION PANEL,HFP [CHEM] DAILY Lab 02/16/20 05:00 Ordered HEPATIC FUNCTION PANEL,HFP [CHEM] DAILY Lab 02/17/20 05:00 Ordered HEPATIC FUNCTION PANEL,HFP [CHEM] DAILY Lab 02/18/20 05:00 Ordered HEPATIC FUNCTION PANEL,HFP [CHEM] DAILY Lab 02/19/20 05:00 Ordered HEPATIC FUNCTION PANEL,HFP [CHEM] DAILY Lab 02/20/20 05:00 Ordered HEPATIC FUNCTION PANEL,HFP [CHEM] DAILY Lab 02/21/20 05:00 Ordered HEPATIC FUNCTION PANEL,HFP [CHEM] DAILY Lab 02/22/20 05:00 Ordered MAGNESIUM [CHEM] AM Lab 02/16/20 05:11 Ordered PHOSPHORUS [CHEM] AM Lab 02/16/20 05:11 Ordered PROCALCITONIN [REF] DAILY Lab 02/16/20 05:00 Ordered PROCALCITONIN [REF] DAILY Lab 02/17/20 05:00 Ordered PROCALCITONIN [REF] DAILY Lab 02/18/20 05:00 Ordered PROCALCITONIN [REF] DAILY Lab 02/19/20 05:00 Ordered PROCALCITONIN [REF] DAILY Lab 02/20/20 05:00 Ordered PROCALCITONIN [REF] DAILY Lab 02/21/20 05:00 Ordered PROCALCITONIN [REF] DAILY Lab 02/22/20 05:00 Ordered Albuterol [Proventil HFA] Med 02/16/20 00:43 Ordered 2 puff INH Q4HR PRN Dextrose 50% in Water Med 02/16/20 00:38 Ordered 25 ml IVPUSH Q1H PRN Dextrose 50% in Water Med 02/16/20 00:38 Ordered 50 ml IV ASDIRECTED PRN Dextrose 50% in Water Med 02/16/20 00:47 Ordered 50 ml IV ASDIRECTED PRN Enoxaparin [Lovenox] Med 02/16/20 09:00 Ordered 40 mg SUBCUT BID Glucagon,Human Recombinant [GlucaGen] Med 02/16/20 00:38 Ordered 1 mg IM ASDIRECTED PRN Glucagon,Human Recombinant [GlucaGen] Med 02/16/20 00:47 Ordered 1 mg IM ASDIRECTED PRN Ibuprofen [Motrin] Med 02/16/20 00:44 Ordered 400 mg PO Q6H PRN Insulin Glarg,Human.Rec.Analog [LantUS] Med 02/16/20 21:00 Ordered 40 unit SUBCUT BEDTIME Insulin Lispro [HumaLOG] Med 02/16/20 07:00 Ordered See Protocol SUBCUT ACBED Lisinopril [Lisinopril] Med 02/16/20 09:00 Ordered 40 mg PO DAILY Magnesium Oxide Med 02/16/20 01:00 Once 500 mg PO ONETIME ONE Mometasone/Formoterol [Dulera 200-5 MCG] Med 02/16/20 07:00 Ordered 2 puff IH BIDRT Multivitamin with Minerals [Multivitamins with Minerals Med 02/16/20 09:00 Ordered ] 1 tab PO DAILY Omeprazole Med 02/16/20 09:00 Ordered 20 mg PO DAILY Ondansetron [Zofran ODT] Med 02/16/20 00:44 Ordered 4 mg PO Q6H PRN Ondansetron [Zofran] Med 02/16/20 00:44 Ordered 4 mg IVPUSH Q6H PRN Prazosin HCl [Prazosin] Med 02/16/20 21:00 Ordered 4 mg PO BEDTIME QUEtiapine [SEROqueL] Med 02/16/20 21:00 Ordered 150 mg PO BEDTIME Remdesivir (Eua) [Remdesivir (EUA)] 100 mg Med 02/17/20 09:00 Ordered Sodium Chloride 0.9% [Normal Saline] 230 ml IV Q24H Sodium Chloride 0.9% [Saline Flush] Med 02/16/20 00:44 Ordered 10 ml FLUSH ASDIRECTED PRN Temazepam [Restoril] Med 02/16/20 00:44 Ordered 15 mg PO BEDTIME PRN Topiramate [Topamax] Med 02/16/20 09:00 Ordered 50 mg PO BID amLODIPine Besylate [Amlodipine Besylate] Med 02/16/20 09:00 Ordered 10 mg PO DAILY dexAMETHasone [Decadron] Med 02/16/20 00:45 Ordered 6 mg IVPUSH .DAILY oxyCODONE Med 02/16/20 00:44 Ordered 5 mg PO Q4H PRN Antiembolic Hose [OM.PC] Per Unit Routine Oth 02/16/20 00:44 Ordered Blood Culture x2 Reflex Set [OM.PC] Stat Oth 02/16/20 00:43 Ordered Isolation [COMM] Stat Oth 02/16/20 00:39 Ordered Peripheral IV Insertion Adult [OM.PC] Routine Oth 02/16/20 00:44 Ordered Saline Lock Insert [OM.PC] Routine Oth 02/16/20 00:44 Ordered Transfuse Fresh Frozen Plasma [COMM] Routine Oth 02/16/20 00:39 Ordered Resuscitation Status Routine Resus Stat 02/16/20 00:44 Ordered Medication Orders Albuterol (Proventil Hfa) 0 gm INH Q4HR PRN PRN Reason: Wheezing Amlodipine Besylate (Norvasc) 10 mg PO DAILY GREG Dexamethasone (Decadron) 6 mg IVPUSH DAILY GREG Dextrose/Water (Dextrose 50% In Water) 25 ml IVPUSH Q1H PRN PRN Reason: blood sugar <70 Dextrose/Water (Dextrose 50% In Water) 50 ml IV ASDIRECTED PRN PRN Reason: Hypoglycemia Dextrose/Water (Dextrose 50% In Water) 50 ml IV ASDIRECTED PRN PRN Reason: Hypoglycemia Enoxaparin Sodium (Lovenox) 40 mg SUBCUT BID GREG Glucagon (Glucagen) 1 mg IM ASDIRECTED PRN PRN Reason: Hypoglycemia Glucagon (Glucagen) 1 mg IM ASDIRECTED PRN PRN Reason: Hypoglycemia Remdesivir 100 mg/ Sodium (Chloride) 230 mls @ 230 mls/hr IV Q24H [facility] Stop: 02/20/20 09:01 Ibuprofen (Motrin) 400 mg PO Q6H PRN PRN Reason: Pain (mild to mod) Insulin Glargine (Lantus) 40 unit SUBCUT BEDTIME GREG Insulin Human Lispro (Humalog) 0 unit SUBCUT QIDACANDBED [facility]; Protocol Lisinopril (Prinivil) 40 mg PO DAILY [facility] Magnesium Oxide (Magnesium Oxide) 500 mg PO ONETIME ONE Stop: 02/16/20 01:01 Mometasone Furoate/Formoterol Fumar (Dulera 200-5 Mcg) 2 puff IH BIDRT [facility] Non-Formulary Medication (Multivitamin With Minerals [Multivitamins With Minerals]) 1 tab PO DAILY [facility] Non-Formulary Medication (Prazosin Hcl [Prazosin]) 4 mg PO BEDTIME GREG Non-Formulary Medication (Topiramate [Topamax]) 50 mg PO BID [facility] Omeprazole (Omeprazole) 20 mg PO ACBRK [facility] Ondansetron HCl (Zofran Odt) 4 mg PO Q6H PRN PRN Reason: nausea, able to take PO Ondansetron HCl (Zofran) 4 mg IVPUSH Q6H PRN PRN Reason: Nausea/Vomiting Oxycodone HCl (Oxycodone) 5 mg PO Q4H PRN PRN Reason: Pain (severe) Quetiapine Fumarate (Seroquel) 150 mg PO BEDTIME [facility] Sodium Chloride (Saline Flush) 10 ml FLUSH ASDIRECTED PRN PRN Reason: Keep Vein Open Temazepam (Restoril) 15 mg PO BEDTIME PRN PRN Reason: Sleep Assessment/Plan Comment:: 39-year-old with history of bipolar disorder, morbid obesity, diabetes, asthma. The patient developed nausea, vomiting around 06 February. Tested positive for Covid. Later the patient came to the emergency room on 11 February. Was given steroid and azithromycin. On the day of this admission the patient presented with increasing shortness of breath. He was noted to have oxygen saturation of 80% on room air at home. She says she had fever up to 101.2, continue nausea, diarrhea. Eating makes the nausea worse. Has chest pain with deeper breaths. Acute hypoxemic respiratory failure secondary to Covid 19 pneumonia Supplement oxygen as needed Covid 19 pneumonia symptoms started on 02/06 Positive covid 19 screen on 02/06 GI and pulmonary symptoms associated with hypoxemia 80% on RA 02/14 at home per ems LFT, Renal fx. Is good treat with Remdesivir 02/15- Dexamethasone 02/15- Plasma 02/15 evaluate for concurrent bacterial infections Follow pro-calcitonin levels In the meantime hold Abx Ddimer is high - DVT prophylaxis SQ Lovenox bid Diabetes Continue Lantus Supplemental insulin and hypoglycemia treatment as needed Hypertension Continue Norvasc, Lisinopril Hyponatremia Mild Received IV fluids in the ER List of further IV fluids Well monitor Dyslipidemia Hold statin while on remdesivir Bipolar disorder Continue Seroquel, topamax I spoke with patient and provided information about Remdesevir treatment as being under emergency use authorization (EUA) and not fully FDA approved or reviewed. I discussed potential side effects including liver abnormalities. Also discussed other potential treatment options that are currently not FDA approved to treat COVID-19. Patient gives permission for Remdesevir. I also discussed risks and benefits of Plasma Tx re: covid
[2020-02-16] MEDS ORDERED: Water For Injection, Sterile 40 ML ONE (01:52)
[2020-02-16] MEDS ORDERED: guaiFENesin/Dextromethorphan 100-10 MG/5 ML Soln 5 ML Cup PO ONE (02:57)
[2020-02-16 07:31] LABS: ANION GAP 15.5 mEq/L (7-13); CHLORIDE,CL 100 mmol/L (98-107); SODIUM,NA 134 mmol/L (136-145)
[2020-02-16] MEDS: Dexamethasone 4 MG/ML SDV IVPUSH SCH (08:20)
[2020-02-16] MEDS: Multivitamins, Therapeutic with Minerals Tab PO SCH (08:20)
[2020-02-16] MEDS: Omeprazole 20 MG Cap.CR PO SCH (08:20)
[2020-02-16] MEDS: Topiramate 25 MG Tab PO SCH ×2 (08:20→21:40)
[2020-02-16] MEDS: amLODIPine 5 MG Tab PO SCH (08:20)
[2020-02-16] MEDS: Lisinopril 20 MG Tab PO SCH (08:20)
[2020-02-16] MEDS: Formoterol/Mometasone 200-5 MCG 8.8 GM Inhaler IH SCH ×2 (08:21→17:18)
[2020-02-16] MEDS: Enoxaparin 40 MG/0.4 ML Syringe SUBCUT SCH ×2 (08:21→21:42)
[2020-02-16] MEDS: Insulin Lispro 100 Units/ML 3 ML Vial SUBCUT SCH ×4 (08:22→21:47)
--- NOTE | 2020-02-16 13:15 | PCM.PN ---
- General Info Date of Service: 02/16/20 Subjective Update: was weaned off oxygen. Continues to have moderate, dry cough. Associated with sharp pain when breathing in. No fever. No diarrhea. Functional Status: Reports: Tolerating Diet - Review of Systems General: Reports: Weakness. Denies: Fever Pulmonary: Reports: Shortness of Breath, Pleuritic Chest Pain Gastrointestinal: Denies: Abdominal Pain - Patient Data Vitals - Most Recent: Last Vital Signs Temp 95.0 F L 02/16/20 11:45 Pulse 72 02/16/20 11:45 Resp 28 H 02/16/20 11:45 BP 118/64 02/16/20 11:45 Pulse Ox 96 02/16/20 11:45 Weight - Most Recent: 313 lb Lab Results Last 24 Hours: Laboratory Results - last 24 hr 02/15/20 02/15/20 02/15/20 Range/Units 22:16 22:16 22:16 WBC 4.5 L (5.0-10.0) 10^3/uL RBC 4.91 (4.2-5.4) 10^6/uL Hgb 14.4 (12.0-16.0) g/dL Hct 41.4 (37.0-47.0) % MCV 84.3 (80-100) fL MCH 29.3 (27.0-34.0) pg MCHC 34.8 (33.0-35.0) g/dL Plt Count 203 (150-450) 10^3/uL Neut % (Auto) 47.1 (42.2-75.2) % Lymph % (Auto) 45.2 (20.5-50.1) % [place] % (Auto) 7.5 (2-8) % Eos % (Auto) 0.0 L (1.0-3.0) % Baso % (Auto) 0.2 (0.0-1.0) % D-Dimer, Quantitative 929 H (0-400) ng/mL Sodium 132 L (136-145) mmol/L Potassium 3.5 (3.5-5.1) mmol/L Chloride 97 L (98-107) mmol/L Carbon Dioxide 21 (21-32) mmol/L Anion Gap 17.5 H (7-13) mEq/L BUN 9 (7-18) mg/dL Creatinine 0.80 (0.55-1.02) mg/dL Est Cr Clr Drug Dosing TNP Estimated GFR (MDRD) > 60 BUN/Creatinine Ratio 11.2 (No establ ref range) Glucose 136 H (74-99) mg/dL POC Glucose (70-105) mg/dl Lactic Acid (0.4-2.0) mmol/L Calcium 8.1 L (8.5-10.1) mg/dL Phosphorus (2.6-4.7) mg/dL Magnesium 1.6 L (1.8-2.4) mg/dL Ferritin (8-252) mg/mL Total Bilirubin 0.3 (0.2-1.0) mg/dL Direct Bilirubin (0.0-0.2) mg/dL Indirect Bilirubin AST 30 (15-37) U/L ALT 56 (14-59) U/L Alkaline Phosphatase 98 (46-116) U/L C-Reactive Protein (0.0-0.9) mg/dL Total Protein 7.1 (6.4-8.2) g/dL Albumin 3.1 L (3.4-5.0) g/dL Globulin 4.0 Albumin/Globulin Ratio 0.78 Amylase 65 (25-115) U/L Lipase 110 (73-393) U/L HCG, Qual Blood Type 02/15/20 02/15/20 02/16/20 Range/Units 22:16 22:16 01:01 WBC (5.0-10.0) 10^3/uL RBC (4.2-5.4) 10^6/uL Hgb (12.0-16.0) g/dL Hct (37.0-47.0) % MCV (80-100) fL MCH (27.0-34.0) pg MCHC (33.0-35.0) g/dL Plt Count (150-450) 10^3/uL Neut % (Auto) (42.2-75.2) % Lymph % (Auto) (20.5-50.1) % [place] % (Auto) (2-8) % Eos % (Auto) (1.0-3.0) % Baso % (Auto) (0.0-1.0) % D-Dimer, Quantitative (0-400) ng/mL Sodium (136-145) mmol/L Potassium (3.5-5.1) mmol/L Chloride (98-107) mmol/L Carbon Dioxide (21-32) mmol/L Anion Gap (7-13) mEq/L BUN (7-18) mg/dL Creatinine (0.55-1.02) mg/dL Est Cr Clr Drug Dosing Estimated GFR (MDRD) BUN/Creatinine Ratio (No establ ref range) Glucose (74-99) mg/dL POC Glucose (70-105) mg/dl Lactic Acid 1.1 (0.4-2.0) mmol/L Calcium (8.5-10.1) mg/dL Phosphorus (2.6-4.7) mg/dL Magnesium (1.8-2.4) mg/dL Ferritin (8-252) mg/mL Total Bilirubin (0.2-1.0) mg/dL Direct Bilirubin (0.0-0.2) mg/dL Indirect Bilirubin AST (15-37) U/L ALT (14-59) U/L Alkaline Phosphatase (46-116) U/L C-Reactive Protein (0.0-0.9) mg/dL Total Protein (6.4-8.2) g/dL Albumin (3.4-5.0) g/dL Globulin Albumin/Globulin Ratio Amylase (25-115) U/L Lipase (73-393) U/L HCG, Qual Negative Blood Type A NEGATIVE 02/16/20 02/16/20 02/16/20 Range/Units 06:10 06:10 06:10 WBC 2.8 L (5.0-10.0) 10^3/uL RBC 4.66 (4.2-5.4) 10^6/uL Hgb 13.6 (12.0-16.0) g/dL Hct 39.5 (37.0-47.0) % MCV 84.8 (80-100) fL MCH 29.2 (27.0-34.0) pg MCHC 34.4 (33.0-35.0) g/dL Plt Count 213 (150-450) 10^3/uL Neut % (Auto) 55.4 (42.2-75.2) % Lymph % (Auto) 38.5 (20.5-50.1) % [place] % (Auto) 6.1 (2-8) % Eos % (Auto) 0.0 L (1.0-3.0) % Baso % (Auto) 0.0 (0.0-1.0) % D-Dimer, Quantitative 764 H (0-400) ng/mL Sodium 134 L (136-145) mmol/L Potassium 3.5 (3.5-5.1) mmol/L Chloride 100 (98-107) mmol/L Carbon Dioxide 22 (21-32) mmol/L Anion Gap 15.5 H (7-13) mEq/L BUN 8 (7-18) mg/dL Creatinine 0.69 (0.55-1.02) mg/dL Est Cr Clr Drug Dosing TNP Estimated GFR (MDRD) > 60 BUN/Creatinine Ratio (No establ ref range) Glucose 234 H (74-99) mg/dL POC Glucose (70-105) mg/dl Lactic Acid (0.4-2.0) mmol/L Calcium 8.4 L (8.5-10.1) mg/dL Phosphorus (2.6-4.7) mg/dL Magnesium (1.8-2.4) mg/dL Ferritin (8-252) mg/mL Total Bilirubin 0.4 (0.2-1.0) mg/dL Direct Bilirubin 0.1 (0.0-0.2) mg/dL Indirect Bilirubin 0.3 AST 26 (15-37) U/L ALT 52 (14-59) U/L Alkaline Phosphatase 93 (46-116) U/L C-Reactive Protein 3.9 H (0.0-0.9) mg/dL Total Protein 7.1 (6.4-8.2) g/dL Albumin 3.0 L (3.4-5.0) g/dL Globulin 4.1 Albumin/Globulin Ratio 0.73 Amylase (25-115) U/L Lipase (73-393) U/L HCG, Qual Blood Type 02/16/20 02/16/20 02/16/20 Range/Units 06:10 06:10 08:08 WBC (5.0-10.0) 10^3/uL RBC (4.2-5.4) 10^6/uL Hgb (12.0-16.0) g/dL Hct (37.0-47.0) % MCV (80-100) fL MCH (27.0-34.0) pg MCHC (33.0-35.0) g/dL Plt Count (150-450) 10^3/uL Neut % (Auto) (42.2-75.2) % Lymph % (Auto) (20.5-50.1) % [place] % (Auto) (2-8) % Eos % (Auto) (1.0-3.0) % Baso % (Auto) (0.0-1.0) % D-Dimer, Quantitative (0-400) ng/mL Sodium (136-145) mmol/L Potassium (3.5-5.1) mmol/L Chloride (98-107) mmol/L Carbon Dioxide (21-32) mmol/L Anion Gap (7-13) mEq/L BUN (7-18) mg/dL Creatinine (0.55-1.02) mg/dL Est Cr Clr Drug Dosing Estimated GFR (MDRD) BUN/Creatinine Ratio (No establ ref range) Glucose (74-99) mg/dL POC Glucose 204 H (70-105) mg/dl Lactic Acid (0.4-2.0) mmol/L Calcium (8.5-10.1) mg/dL Phosphorus 3.3 (2.6-4.7) mg/dL Magnesium 1.9 (1.8-2.4) mg/dL Ferritin 142 (8-252) mg/mL Total Bilirubin (0.2-1.0) mg/dL Direct Bilirubin (0.0-0.2) mg/dL Indirect Bilirubin AST (15-37) U/L ALT (14-59) U/L Alkaline Phosphatase (46-116) U/L C-Reactive Protein (0.0-0.9) mg/dL Total Protein (6.4-8.2) g/dL Albumin (3.4-5.0) g/dL Globulin Albumin/Globulin Ratio Amylase (25-115) U/L Lipase (73-393) U/L HCG, Qual Blood Type 02/16/20 Range/Units 11:42 WBC (5.0-10.0) 10^3/uL RBC (4.2-5.4) 10^6/uL Hgb (12.0-16.0) g/dL Hct (37.0-47.0) % MCV (80-100) fL MCH (27.0-34.0) pg MCHC (33.0-35.0) g/dL Plt Count (150-450) 10^3/uL Neut % (Auto) (42.2-75.2) % Lymph % (Auto) (20.5-50.1) % [place] % (Auto) (2-8) % Eos % (Auto) (1.0-3.0) % Baso % (Auto) (0.0-1.0) % D-Dimer, Quantitative (0-400) ng/mL Sodium (136-145) mmol/L Potassium (3.5-5.1) mmol/L Chloride (98-107) mmol/L Carbon Dioxide (21-32) mmol/L Anion Gap (7-13) mEq/L BUN (7-18) mg/dL Creatinine (0.55-1.02) mg/dL Est Cr Clr Drug Dosing Estimated GFR (MDRD) BUN/Creatinine Ratio (No establ ref range) Glucose (74-99) mg/dL POC Glucose 242 H (70-105) mg/dl Lactic Acid (0.4-2.0) mmol/L Calcium (8.5-10.1) mg/dL Phosphorus (2.6-4.7) mg/dL Magnesium (1.8-2.4) mg/dL Ferritin (8-252) mg/mL Total Bilirubin (0.2-1.0) mg/dL Direct Bilirubin (0.0-0.2) mg/dL Indirect Bilirubin AST (15-37) U/L ALT (14-59) U/L Alkaline Phosphatase (46-116) U/L C-Reactive Protein (0.0-0.9) mg/dL Total Protein (6.4-8.2) g/dL Albumin (3.4-5.0) g/dL Globulin Albumin/Globulin Ratio Amylase (25-115) U/L Lipase (73-393) U/L HCG, Qual Blood Type Vasu Results Last 24 Hours: Microbiology 02/15/20 22:16 Anaerobic Blood Culture - Final Blood - Venous - Iv Start Med Orders - Current: Current Medications Albuterol (Proventil Hfa) 0 gm INH Q4HR PRN PRN Reason: Wheezing Amlodipine Besylate (Norvasc) 10 mg PO DAILY [facility] Last Admin: 02/16/20 08:20 Dose: 10 mg Documented by: Dexamethasone (Decadron) 6 mg IVPUSH DAILY [facility] Last Admin: 02/16/20 08:20 Dose: 6 mg Documented by: Dextrose/Water (Dextrose 50% In Water) 25 ml IVPUSH Q1H PRN PRN Reason: blood sugar <70 Dextrose/Water (Dextrose 50% In Water) 50 ml IV ASDIRECTED PRN PRN Reason: Hypoglycemia Dextrose/Water (Dextrose 50% In Water) 50 ml IV ASDIRECTED PRN PRN Reason: Hypoglycemia Enoxaparin Sodium (Lovenox) 40 mg SUBCUT BID [facility] Last Admin: 02/16/20 08:21 Dose: 40 mg Documented by: Glucagon (Glucagen) 1 mg IM ASDIRECTED PRN PRN Reason: Hypoglycemia Glucagon (Glucagen) 1 mg IM ASDIRECTED PRN PRN Reason: Hypoglycemia Remdesivir 100 mg/ Sodium (Chloride) 230 mls @ 230 mls/hr IV Q24H [facility] Stop: 02/20/20 09:01 Ibuprofen (Motrin) 400 mg PO Q6H PRN PRN Reason: Pain (mild to mod) Insulin Glargine (Lantus) 40 unit SUBCUT BEDTIME [facility] Insulin Human Lispro (Humalog) 0 unit SUBCUT QIDACANDBED [facility]; Protocol Last Admin: 02/16/20 12:56 Dose: 2 units Documented by: Lisinopril (Prinivil) 40 mg PO DAILY [facility] Last Admin: 02/16/20 08:20 Dose: 40 mg Documented by: Mometasone Furoate/Formoterol Fumar (Dulera 200-5 Mcg) 2 puff IH BIDRT [facility] Last Admin: 02/16/20 08:21 Dose: 2 puff Documented by: Multivitamins/Minerals (Vitamins And Minerals) 1 tab PO DAILY [facility] Last Admin: 02/16/20 08:20 Dose: 1 tab Documented by: Non-Formulary Medication (Prazosin Hcl [Prazosin]) 4 mg PO BEDTIME [facility] Omeprazole (Omeprazole) 20 mg PO ACBRK [facility] Last Admin: 02/16/20 08:20 Dose: 20 mg Documented by: Ondansetron HCl (Zofran Odt) 4 mg PO Q6H PRN PRN Reason: nausea, able to take PO Ondansetron HCl (Zofran) 4 mg IVPUSH Q6H PRN PRN Reason: Nausea/Vomiting Oxycodone HCl (Oxycodone) 5 mg PO Q4H PRN PRN Reason: Pain (severe) Quetiapine Fumarate (Seroquel) 150 mg PO BEDTIME [facility] Sodium Chloride (Saline Flush) 10 ml FLUSH ASDIRECTED PRN PRN Reason: Keep Vein Open Temazepam (Restoril) 15 mg PO BEDTIME PRN PRN Reason: Sleep Topiramate (Topamax) 50 mg PO BID [facility] Last Admin: 02/16/20 08:20 Dose: 50 mg Documented by: Discontinued Medications Dexamethasone (Decadron) 6 mg IVPUSH ONETIME ONE Stop: 02/15/20 22:21 Last Admin: 02/15/20 22:35 Dose: 6 mg Documented by: Dexamethasone (Decadron) Confirm Administered Dose 8 mg .ROUTE .STK-MED ONE Stop: 02/15/20 22:20 Last Admin: 02/15/20 22:22 Dose: Not Given Documented by: Guaifenesin/Phenylephrine HCl (Robitussin Dm) 10 ml PO ONETIME ONE Stop: 02/16/20 02:58 Last Admin: 02/16/20 03:20 Dose: 10 ml Documented by: Sodium Chloride (Normal Saline) 1,000 mls @ 50 mls/hr IV .BOLUS ONE Stop: 02/16/20 18:21 Last Admin: 02/15/20 22:35 Dose: 50 mls/hr Documented by: Remdesivir 200 mg/ Sodium (Chloride) 210 mls @ 210 mls/hr IV ONETIME ONE Stop: 02/16/20 00:40 Last Admin: 02/16/20 02:23 Dose: 210 mls/hr Documented by: Sterile Water (Sterile Water For Injection) Confirm Administered Dose 40 mls @ as directed .ROUTE .STK-MED ONE Stop: 02/16/20 01:53 Last Admin: 02/16/20 02:35 Dose: 40 mls/hr Documented by: Magnesium Oxide (Magnesium Oxide) 500 mg PO ONETIME ONE Stop: 02/16/20 01:01 Last Admin: 02/16/20 02:24 Dose: 500 mg Documented by: - Exam Quality Assessment: No: Supplemental Oxygen General: Alert, Oriented Neck: Supple Lungs: Normal Respiratory Effort, Rhonchi GI/Abdominal Exam: Normal Bowel Sounds, Soft, Non-Tender Extremities: No Pedal Edema Neurological: No New Focal Deficit Psy/Mental Status: Alert, Normal Affect, Normal Mood Sepsis Event Note - Evaluation Sepsis Screening Result: No Definite Risk - Focused Exam Vital Signs: Vital Signs Temp Pulse Resp BP BP Pulse Ox 02/16/20 11:45 95.0 F L 72 28 H 118/64 96 02/16/20 08:20 132/71 02/16/20 08:00 96.8 F L 89 28 H 132/71 95 02/16/20 04:44 97.2 F 74 14 98/42 L 100 - Problem List & Annotations (1) Diabetes SNOMED Code(s): 47731700 Code(s): E11.9 - TYPE 2 DIABETES MELLITUS WITHOUT COMPLICATIONS Status: Acute Current Visit: Yes (2) Bipolar affective disorder SNOMED Code(s): 22910762 Code(s): F31.9 - BIPOLAR DISORDER, UNSPECIFIED Status: Acute Current Visit: Yes (3) Hyponatremia SNOMED Code(s): 21215755 Code(s): E87.1 - HYPO-OSMOLALITY AND HYPONATREMIA Status: Acute Current Visit: Yes (4) Hypoxemia SNOMED Code(s): 250703788 Code(s): R09.02 - HYPOXEMIA Status: Acute Current Visit: Yes (5) Pneumonia due to COVID-19 virus SNOMED Code(s): 690079032655204790 Code(s): U07.1 - COVID-19; J12.89 - OTHER VIRAL PNEUMONIA Status: Acute Current Visit: Yes (6) Vomiting SNOMED Code(s): 294039198 Code(s): R11.10 - VOMITING, UNSPECIFIED Status: Acute Current Visit: No - Problem List Review Problem List Initiated/Reviewed/Updated: Yes - My Orders Last 24 Hours: My Active Orders 02/16/20 00:38 Glucose [Blood Glucose Check, Bedside] [RC] QIDACANDBED Dextrose 50% in Water 25 ml IVPUSH Q1H PRN Dextrose 50% in Water 50 ml IV ASDIRECTED PRN Glucagon,Human Recombinant [GlucaGen] 1 mg IM ASDIRECTED PRN 02/16/20 00:39 Verify Patient Consent Obtain [RC] ASDIRECTED Isolation [COMM] Stat Transfuse Fresh Frozen Plasma [COMM] Routine 02/16/20 00:41 CULTURE SPUTUM + SMEAR [RM] Routine 02/16/20 00:43 RT Post Treatment Assessment [RC] Click to Edit RT Pre-Treatment Assessment [RC] Click to Edit CULTURE BLOOD [BC] Stat Albuterol [Proventil HFA] 0 gm INH Q4HR PRN Blood Culture x2 Reflex Set [OM.PC] Stat 02/16/20 00:44 Antiembolic Devices [RC] PER UNIT ROUTINE Oxygen Therapy [RC] PRN Up With Assistance [RC] ASDIRECTED VTE/DVT Education [RC] PER UNIT ROUTINE Vital Signs [RC] Q4H Ibuprofen [Motrin] 400 mg PO Q6H PRN Ondansetron [Zofran ODT] 4 mg PO Q6H PRN Ondansetron [Zofran] 4 mg IVPUSH Q6H PRN Sodium Chloride 0.9% [Saline Flush] 10 ml FLUSH ASDIRECTED PRN Temazepam [Restoril] 15 mg PO BEDTIME PRN oxyCODONE 5 mg PO Q4H PRN Antiembolic Hose [OM.PC] Per Unit Routine Peripheral IV Insertion Adult [OM.PC] Routine Saline Lock Insert [OM.PC] Routine Resuscitation Status Routine 02/16/20 00:45 Peripheral IV Care [RC] 02/16/20 00:47 Dextrose 50% in Water 50 ml IV ASDIRECTED PRN Glucagon,Human Recombinant [GlucaGen] 1 mg IM ASDIRECTED PRN 02/16/20 01:01 ABO/RH TYPE [BBK] Routine CULTURE BLOOD [BC] Stat FRESH FROZEN PLASMA [BBK] Routine WEAK D TEST [BBK] Routine 02/16/20 06:00 Omeprazole 20 mg PO ACBRK 02/16/20 06:10 PROCALCITONIN [REF] DAILY 02/16/20 07:00 Insulin Lispro [HumaLOG] See Protocol SUBCUT QIDACANDBED Mometasone/Formoterol [Dulera 200-5 MCG] 2 puff IH BIDRT 02/16/20 Breakfast Clear Liquid Diet [DIET] 02/16/20 09:00 Enoxaparin [Lovenox] 40 mg SUBCUT BID Multivitamins/Minerals [Vitamins and Minerals] 1 tab PO DAILY Topiramate [Topamax] 50 mg PO BID amLODIPine [Norvasc] 10 mg PO DAILY dexAMETHasone [Decadron] 6 mg IVPUSH DAILY lisinopriL [Prinivil] 40 mg PO DAILY 02/16/20 21:00 Insulin Glarg,Human.Rec.Analog [LantUS] 40 unit SUBCUT BEDTIME Prazosin HCl [Prazosin] 4 mg PO BEDTIME QUEtiapine [SEROqueL] 150 mg PO BEDTIME 02/17/20 05:00 BASIC METABOLIC PANEL,BMP [CHEM] DAILY C-REACTIVE PROTEIN [CHEM] DAILY CBC WITH AUTO DIFF [HEME] DAILY D-DIMER QUANTITATIVE [COAG] DAILY FERRITIN [CHEM] DAILY HEPATIC FUNCTION PANEL,HFP [CHEM] DAILY PROCALCITONIN [REF] DAILY 02/17/20 09:00 Remdesivir (Eua) [Remdesivir (EUA)] 100 mg Sodium Chloride 0.9% [Normal Saline] 230 ml IV Q24H 02/18/20 05:00 BASIC METABOLIC PANEL,BMP [CHEM] DAILY C-REACTIVE PROTEIN [CHEM] DAILY CBC WITH AUTO DIFF [HEME] DAILY D-DIMER QUANTITATIVE [COAG] DAILY FERRITIN [CHEM] DAILY HEPATIC FUNCTION PANEL,HFP [CHEM] DAILY PROCALCITONIN [REF] DAILY 02/19/20 05:00 BASIC METABOLIC PANEL,BMP [CHEM] DAILY C-REACTIVE PROTEIN [CHEM] DAILY CBC WITH AUTO DIFF [HEME] DAILY D-DIMER QUANTITATIVE [COAG] DAILY FERRITIN [CHEM] DAILY HEPATIC FUNCTION PANEL,HFP [CHEM] DAILY PROCALCITONIN [REF] DAILY 02/20/20 05:00 BASIC METABOLIC PANEL,BMP [CHEM] DAILY C-REACTIVE PROTEIN [CHEM] DAILY CBC WITH AUTO DIFF [HEME] DAILY D-DIMER QUANTITATIVE [COAG] DAILY FERRITIN [CHEM] DAILY HEPATIC FUNCTION PANEL,HFP [CHEM] DAILY PROCALCITONIN [REF] DAILY 02/21/20 05:00 BASIC METABOLIC PANEL,BMP [CHEM] DAILY C-REACTIVE PROTEIN [CHEM] DAILY CBC WITH AUTO DIFF [HEME] DAILY D-DIMER QUANTITATIVE [COAG] DAILY FERRITIN [CHEM] DAILY HEPATIC FUNCTION PANEL,HFP [CHEM] DAILY PROCALCITONIN [REF] DAILY 02/22/20 05:00 BASIC METABOLIC PANEL,BMP [CHEM] DAILY C-REACTIVE PROTEIN [CHEM] DAILY CBC WITH AUTO DIFF [HEME] DAILY D-DIMER QUANTITATIVE [COAG] DAILY FERRITIN [CHEM] DAILY HEPATIC FUNCTION PANEL,HFP [CHEM] DAILY PROCALCITONIN [REF] DAILY - Plan Plan:: 39-year-old with history of bipolar disorder, morbid obesity, diabetes, asthma. The patient developed nausea, vomiting around 06 February. Tested positive for Covid. Later the patient came to the emergency room on 11 February. Was given steroid and azithromycin. On the day of this admission the patient presented with increasing shortness of breath. He was noted to have oxygen saturation of 80% on room air at home. She says she had fever up to 101.2, continue nausea, diarrhea. Eating makes the nausea worse. Has chest pain with deep breaths. Acute hypoxemic respiratory failure secondary to Covid 19 pneumonia Supplement oxygen as needed wean oxygen as possible Covid 19 pneumonia symptoms started on 02/06 Positive covid 19 screen on 02/06 GI and pulmonary symptoms associated with hypoxemia 80% on RA 02/14 at home per ems LFT, Renal fx. Is good treat with Remdesivir 02/15- Dexamethasone 02/15- Plasma 02/15 - evaluate for concurrent bacterial infections pending pro-calcitonin levels In the meantime hold Abx Ddimer is high - continue DVT prophylaxis with SQ Lovenox bid Diabetes Continue Lantus Supplemental insulin and hypoglycemia treatment as needed Hypertension Continue Norvasc, Lisinopril Hyponatremia Mild Received IV fluids in the ER stop IV fluids Well monitor Dyslipidemia Hold statin while on remdesivir Bipolar disorder Continue Seroquel, topamax
[2020-02-16] MEDS: QUEtiapine 100 MG Tab PO SCH (21:40)
[2020-02-16] MEDS: Insulin Glarg,Human.Rec.Analog 100 Unit/ML SUBCUT SCH (21:46)
[2020-02-17] MEDS: Omeprazole 20 MG Cap.CR PO SCH (06:41)
[2020-02-17 07:11] LABS: ANION GAP 12.5 mEq/L (7-13); CHLORIDE,CL 104 mmol/L (98-107); SODIUM,NA 139 mmol/L (136-145)
[2020-02-17] MEDS: Insulin Lispro 100 Units/ML 3 ML Vial SUBCUT SCH ×4 (08:27→23:22)
[2020-02-17] MEDS: Topiramate 25 MG Tab PO SCH ×2 (09:51→23:30)
[2020-02-17] MEDS: Enoxaparin 40 MG/0.4 ML Syringe SUBCUT SCH ×2 (09:51→23:24)
[2020-02-17] MEDS: Multivitamins, Therapeutic with Minerals Tab PO SCH (09:51)
[2020-02-17] MEDS: Dexamethasone 4 MG/ML SDV IVPUSH SCH (09:52)
[2020-02-17] MEDS: amLODIPine 5 MG Tab PO SCH (09:57)
[2020-02-17] MEDS: Lisinopril 20 MG Tab PO SCH (09:57)
[2020-02-17] MEDS: Formoterol/Mometasone 200-5 MCG 8.8 GM Inhaler IH SCH ×2 (09:57→17:38)
--- NOTE | 2020-02-17 11:47 | PCM.PN ---
- General Info Date of Service: 02/17/20 Admission Dx/Problem (Free Text): Admission Diagnosis/Problem Admission Diagnosis/Problem Pneumonia Subjective Update: was weaned off oxygen. Continues to have moderate, dry cough. Associated with sharp pain when breathing in. No fever. No diarrhea. feeling weak. Functional Status: Reports: Pain Controlled, Tolerating Diet - Review of Systems General: Reports: Weakness. Denies: Fever Pulmonary: Denies: Shortness of Breath Cardiovascular: Denies: Chest Pain Gastrointestinal: Denies: Abdominal Pain Neurological: Denies: Confusion - Patient Data Vitals - Most Recent: Last Vital Signs Temp 98 F 02/17/20 08:11 Pulse 73 02/17/20 08:11 Resp 18 02/17/20 08:11 BP 110/47 L 02/17/20 09:57 Pulse Ox 93 L 02/17/20 08:11 Weight - Most Recent: 313 lb Lab Results Last 24 Hours: Laboratory Results - last 24 hr 02/15/20 02/16/20 02/16/20 Range/Units 22:22 06:10 16:29 WBC (5.0-10.0) 10^3/uL RBC (4.2-5.4) 10^6/uL Hgb (12.0-16.0) g/dL Hct (37.0-47.0) % MCV (80-100) fL MCH (27.0-34.0) pg MCHC (33.0-35.0) g/dL Plt Count (150-450) 10^3/uL Neut % (Auto) (42.2-75.2) % Lymph % (Auto) (20.5-50.1) % [place] % (Auto) (2-8) % Eos % (Auto) (1.0-3.0) % Baso % (Auto) (0.0-1.0) % D-Dimer, Quantitative (0-400) ng/mL Sodium (136-145) mmol/L Potassium (3.5-5.1) mmol/L Chloride (98-107) mmol/L Carbon Dioxide (21-32) mmol/L Anion Gap (7-13) mEq/L BUN (7-18) mg/dL Creatinine (0.55-1.02) mg/dL Est Cr Clr Drug Dosing mL/min Estimated GFR (MDRD) Glucose (74-99) mg/dL POC Glucose 118 H 250 H (70-105) mg/dl Calcium (8.5-10.1) mg/dL Ferritin (8-252) mg/mL Total Bilirubin (0.2-1.0) mg/dL Direct Bilirubin (0.0-0.2) mg/dL Indirect Bilirubin AST (15-37) U/L ALT (14-59) U/L Alkaline Phosphatase (46-116) U/L C-Reactive Protein (0.0-0.9) mg/dL Total Protein (6.4-8.2) g/dL Albumin (3.4-5.0) g/dL Globulin Albumin/Globulin Ratio Procalcitonin <0.05 (<0.10) ng/mL 02/16/20 02/17/20 02/17/20 Range/Units 21:39 05:40 05:40 WBC 4.2 L (5.0-10.0) 10^3/uL RBC 4.62 (4.2-5.4) 10^6/uL Hgb 13.3 (12.0-16.0) g/dL Hct 39.7 (37.0-47.0) % MCV 85.9 (80-100) fL MCH 28.8 (27.0-34.0) pg MCHC 33.5 (33.0-35.0) g/dL Plt Count 250 (150-450) 10^3/uL Neut % (Auto) 45.8 (42.2-75.2) % Lymph % (Auto) 45.5 (20.5-50.1) % [place] % (Auto) 8.7 H (2-8) % Eos % (Auto) 0.0 L (1.0-3.0) % Baso % (Auto) 0.0 (0.0-1.0) % D-Dimer, Quantitative 320 (0-400) ng/mL Sodium (136-145) mmol/L Potassium (3.5-5.1) mmol/L Chloride (98-107) mmol/L Carbon Dioxide (21-32) mmol/L Anion Gap (7-13) mEq/L BUN (7-18) mg/dL Creatinine (0.55-1.02) mg/dL Est Cr Clr Drug Dosing mL/min Estimated GFR (MDRD) Glucose (74-99) mg/dL POC Glucose 242 H (70-105) mg/dl Calcium (8.5-10.1) mg/dL Ferritin (8-252) mg/mL Total Bilirubin (0.2-1.0) mg/dL Direct Bilirubin (0.0-0.2) mg/dL Indirect Bilirubin AST (15-37) U/L ALT (14-59) U/L Alkaline Phosphatase (46-116) U/L C-Reactive Protein (0.0-0.9) mg/dL Total Protein (6.4-8.2) g/dL Albumin (3.4-5.0) g/dL Globulin Albumin/Globulin Ratio Procalcitonin (<0.10) ng/mL 02/17/20 02/17/20 02/17/20 Range/Units 05:40 05:40 08:27 WBC (5.0-10.0) 10^3/uL RBC (4.2-5.4) 10^6/uL Hgb (12.0-16.0) g/dL Hct (37.0-47.0) % MCV (80-100) fL MCH (27.0-34.0) pg MCHC (33.0-35.0) g/dL Plt Count (150-450) 10^3/uL Neut % (Auto) (42.2-75.2) % Lymph % (Auto) (20.5-50.1) % [place] % (Auto) (2-8) % Eos % (Auto) (1.0-3.0) % Baso % (Auto) (0.0-1.0) % D-Dimer, Quantitative (0-400) ng/mL Sodium 139 (136-145) mmol/L Potassium 3.5 (3.5-5.1) mmol/L Chloride 104 (98-107) mmol/L Carbon Dioxide 26 (21-32) mmol/L Anion Gap 12.5 (7-13) mEq/L BUN 10 (7-18) mg/dL Creatinine 0.77 (0.55-1.02) mg/dL Est Cr Clr Drug Dosing 75.48 mL/min Estimated GFR (MDRD) > 60 Glucose 142 H (74-99) mg/dL POC Glucose 127 H (70-105) mg/dl Calcium 8.3 L (8.5-10.1) mg/dL Ferritin 174 (8-252) mg/mL Total Bilirubin 0.3 (0.2-1.0) mg/dL Direct Bilirubin 0.1 (0.0-0.2) mg/dL Indirect Bilirubin 0.2 AST 25 (15-37) U/L ALT 43 (14-59) U/L Alkaline Phosphatase 80 (46-116) U/L C-Reactive Protein 1.4 H (0.0-0.9) mg/dL Total Protein 6.6 (6.4-8.2) g/dL Albumin 2.8 L (3.4-5.0) g/dL Globulin 3.8 Albumin/Globulin Ratio 0.74 Procalcitonin (<0.10) ng/mL 02/16/ Range/Units 11:19 WBC (5.0-10.0) 10^3/uL RBC (4.2-5.4) 10^6/uL Hgb (12.0-16.0) g/dL Hct (37.0-47.0) % MCV (80-100) fL MCH (27.0-34.0) pg MCHC (33.0-35.0) g/dL Plt Count (150-450) 10^3/uL Neut % (Auto) (42.2-75.2) % Lymph % (Auto) (20.5-50.1) % [place] % (Auto) (2-8) % Eos % (Auto) (1.0-3.0) % Baso % (Auto) (0.0-1.0) % D-Dimer, Quantitative (0-400) ng/mL Sodium (136-145) mmol/L Potassium (3.5-5.1) mmol/L Chloride (98-107) mmol/L Carbon Dioxide (21-32) mmol/L Anion Gap (7-13) mEq/L BUN (7-18) mg/dL Creatinine (0.55-1.02) mg/dL Est Cr Clr Drug Dosing mL/min Estimated GFR (MDRD) Glucose (74-99) mg/dL POC Glucose 202 H (70-105) mg/dl Calcium (8.5-10.1) mg/dL Ferritin (8-252) mg/mL Total Bilirubin (0.2-1.0) mg/dL Direct Bilirubin (0.0-0.2) mg/dL Indirect Bilirubin AST (15-37) U/L ALT (14-59) U/L Alkaline Phosphatase (46-116) U/L C-Reactive Protein (0.0-0.9) mg/dL Total Protein (6.4-8.2) g/dL Albumin (3.4-5.0) g/dL Globulin Albumin/Globulin Ratio Procalcitonin (<0.10) ng/mL Vasu Results Last 24 Hours: Microbiology 02/16/20 01:01 Aerobic Blood Culture - Preliminary Blood - Arm, Right NO GROWTH AFTER 1 DAY Anaerobic Blood Culture - Preliminary NO GROWTH AFTER 1 DAY 02/15/20 22:16 Aerobic Blood Culture - Preliminary Blood - Venous - Iv Start NO GROWTH AFTER 1 DAY Anaerobic Blood Culture - Final Med Orders - Current: Current Medications Albuterol (Proventil Hfa) 0 gm INH Q4HR PRN PRN Reason: Wheezing Amlodipine Besylate (Norvasc) 10 mg PO DAILY [facility] Last Admin: 02/17/20 09:57 Dose: Not Given Documented by: Dexamethasone (Decadron) 6 mg IVPUSH DAILY [facility] Last Admin: 02/17/20 09:52 Dose: 6 mg Documented by: Dextrose/Water (Dextrose 50% In Water) 25 ml IVPUSH Q1H PRN PRN Reason: blood sugar <70 Dextrose/Water (Dextrose 50% In Water) 50 ml IV ASDIRECTED PRN PRN Reason: Hypoglycemia Dextrose/Water (Dextrose 50% In Water) 50 ml IV ASDIRECTED PRN PRN Reason: Hypoglycemia Enoxaparin Sodium (Lovenox) 40 mg SUBCUT BID [facility] Last Admin: 02/17/20 09:51 Dose: 40 mg Documented by: Glucagon (Glucagen) 1 mg IM ASDIRECTED PRN PRN Reason: Hypoglycemia Glucagon (Glucagen) 1 mg IM ASDIRECTED PRN PRN Reason: Hypoglycemia Remdesivir 100 mg/ Sodium (Chloride) 230 mls @ 230 mls/hr IV Q24H [facility] Stop: 02/20/20 09:01 Last Admin: 02/17/20 09:52 Dose: 230 mls/hr Documented by: Ibuprofen (Motrin) 400 mg PO Q6H PRN PRN Reason: Pain (mild to mod) Insulin Glargine (Lantus) 40 unit SUBCUT BEDTIME [facility] Last Admin: 02/16/20 21:46 Dose: 40 units Documented by: Insulin Human Lispro (Humalog) 0 unit SUBCUT QIDACANDBED [facility]; Protocol Last Admin: 02/17/20 08:27 Dose: Not Given Documented by: Lisinopril (Prinivil) 40 mg PO DAILY [facility] Last Admin: 02/17/20 09:57 Dose: Not Given Documented by: Mometasone Furoate/Formoterol Fumar (Dulera 200-5 Mcg) 2 puff IH BIDRT [facility] Last Admin: 02/17/20 09:57 Dose: 2 puff Documented by: Multivitamins/Minerals (Vitamins And Minerals) 1 tab PO DAILY [facility] Last Admin: 02/17/20 09:51 Dose: 1 tab Documented by: Prazosin 2 Mg Caps 0 mg PO BEDTIME [facility] Last Admin: 02/16/20 21:41 Dose: 4 mg Documented by: Omeprazole (Omeprazole) 20 mg PO ACBRK [facility] Last Admin: 02/17/20 06:41 Dose: 20 mg Documented by: Ondansetron HCl (Zofran Odt) 4 mg PO Q6H PRN PRN Reason: nausea, able to take PO Ondansetron HCl (Zofran) 4 mg IVPUSH Q6H PRN PRN Reason: Nausea/Vomiting Oxycodone HCl (Oxycodone) 5 mg PO Q4H PRN PRN Reason: Pain (severe) Quetiapine Fumarate (Seroquel) 150 mg PO BEDTIME [facility] Last Admin: 02/16/20 21:40 Dose: 150 mg Documented by: Sodium Chloride (Saline Flush) 10 ml FLUSH ASDIRECTED PRN PRN Reason: Keep Vein Open Temazepam (Restoril) 15 mg PO BEDTIME PRN PRN Reason: Sleep Topiramate (Topamax) 50 mg PO BID [facility] Last Admin: 02/17/20 09:51 Dose: 50 mg Documented by: Discontinued Medications Dexamethasone (Decadron) 6 mg IVPUSH ONETIME ONE Stop: 02/15/20 22:21 Last Admin: 02/15/20 22:35 Dose: 6 mg Documented by: Dexamethasone (Decadron) Confirm Administered Dose 8 mg .ROUTE .STK-MED ONE Stop: 02/15/20 22:20 Last Admin: 02/15/20 22:22 Dose: Not Given Documented by: Guaifenesin/Phenylephrine HCl (Robitussin Dm) 10 ml PO ONETIME ONE Stop: 02/16/20 02:58 Last Admin: 02/16/20 03:20 Dose: 10 ml Documented by: Sodium Chloride (Normal Saline) 1,000 mls @ 50 mls/hr IV .BOLUS ONE Stop: 02/16/20 18:21 Last Admin: 02/15/20 22:35 Dose: 50 mls/hr Documented by: Remdesivir 200 mg/ Sodium (Chloride) 210 mls @ 210 mls/hr IV ONETIME ONE Stop: 02/16/20 00:40 Last Admin: 02/16/20 02:23 Dose: 210 mls/hr Documented by: Sterile Water (Sterile Water For Injection) Confirm Administered Dose 40 mls @ as directed .ROUTE .STK-MED ONE Stop: 02/16/20 01:53 Last Admin: 02/16/20 02:35 Dose: 40 mls/hr Documented by: Magnesium Oxide (Magnesium Oxide) 500 mg PO ONETIME ONE Stop: 02/16/20 01:01 Last Admin: 02/16/20 02:24 Dose: 500 mg Documented by: - Exam Quality Assessment: No: Supplemental Oxygen General: Alert, Oriented Neck: Supple Lungs: Clear to Auscultation, Normal Respiratory Effort Cardiovascular: Regular Rate, Regular Rhythm GI/Abdominal Exam: Normal Bowel Sounds, Soft, Non-Tender Extremities: No Pedal Edema Skin: Warm, Dry Neurological: No New Focal Deficit Psy/Mental Status: Alert, Normal Affect, Normal Mood Sepsis Event Note - Evaluation Sepsis Screening Result: No Definite Risk - Focused Exam Vital Signs: Vital Signs Temp Pulse Resp BP BP Pulse Ox 02/17/20 09:57 110/47 L 02/17/20 08:11 98 F 73 18 84/46 L 93 L 02/17/20 04:00 98.3 F 67 18 97 02/17/20 00:00 98.5 F 72 16 97 - Problem List & Annotations (1) Diabetes SNOMED Code(s): 69844190 Code(s): E11.9 - TYPE 2 DIABETES MELLITUS WITHOUT COMPLICATIONS Status: Acute Current Visit: Yes (2) Bipolar affective disorder SNOMED Code(s): 45807585 Code(s): F31.9 - BIPOLAR DISORDER, UNSPECIFIED Status: Acute Current Visit: Yes (3) Hyponatremia SNOMED Code(s): 97410368 Code(s): E87.1 - HYPO-OSMOLALITY AND HYPONATREMIA Status: Acute Current Visit: Yes (4) Hypoxemia SNOMED Code(s): 581150807 Code(s): R09.02 - HYPOXEMIA Status: Acute Current Visit: Yes (5) Pneumonia due to COVID-19 virus SNOMED Code(s): 193605319980643052 Code(s): U07.1 - COVID-19; J12.89 - OTHER VIRAL PNEUMONIA Status: Acute Current Visit: Yes (6) Vomiting SNOMED Code(s): 683976997 Code(s): R11.10 - VOMITING, UNSPECIFIED Status: Acute Current Visit: No - Problem List Review Problem List Initiated/Reviewed/Updated: Yes - My Orders Last 24 Hours: My Active Orders 02/16/20 21:00 Insulin Glarg,Human.Rec.Analog [LantUS] 40 unit SUBCUT BEDTIME Prazosin HCl [Prazosin] 0 mg PO BEDTIME QUEtiapine [SEROqueL] 150 mg PO BEDTIME 02/17/20 05:40 PROCALCITONIN [REF] DAILY 02/17/20 Breakfast Consistent Carbohydrate Diet [DIET] 02/17/20 09:00 Remdesivir (Eua) [Remdesivir (EUA)] 100 mg Sodium Chloride 0.9% [Normal Saline] 230 ml IV Q24H 02/18/20 05:00 BASIC METABOLIC PANEL,BMP [CHEM] DAILY C-REACTIVE PROTEIN [CHEM] DAILY CBC WITH AUTO DIFF [HEME] DAILY D-DIMER QUANTITATIVE [COAG] DAILY FERRITIN [CHEM] DAILY HEPATIC FUNCTION PANEL,HFP [CHEM] DAILY PROCALCITONIN [REF] DAILY 02/19/20 05:00 BASIC METABOLIC PANEL,BMP [CHEM] DAILY C-REACTIVE PROTEIN [CHEM] DAILY CBC WITH AUTO DIFF [HEME] DAILY D-DIMER QUANTITATIVE [COAG] DAILY FERRITIN [CHEM] DAILY HEPATIC FUNCTION PANEL,HFP [CHEM] DAILY PROCALCITONIN [REF] DAILY 02/20/20 05:00 BASIC METABOLIC PANEL,BMP [CHEM] DAILY C-REACTIVE PROTEIN [CHEM] DAILY CBC WITH AUTO DIFF [HEME] DAILY D-DIMER QUANTITATIVE [COAG] DAILY FERRITIN [CHEM] DAILY HEPATIC FUNCTION PANEL,HFP [CHEM] DAILY PROCALCITONIN [REF] DAILY 02/21/20 05:00 BASIC METABOLIC PANEL,BMP [CHEM] DAILY C-REACTIVE PROTEIN [CHEM] DAILY CBC WITH AUTO DIFF [HEME] DAILY D-DIMER QUANTITATIVE [COAG] DAILY FERRITIN [CHEM] DAILY HEPATIC FUNCTION PANEL,HFP [CHEM] DAILY PROCALCITONIN [REF] DAILY 02/22/20 05:00 BASIC METABOLIC PANEL,BMP [CHEM] DAILY C-REACTIVE PROTEIN [CHEM] DAILY CBC WITH AUTO DIFF [HEME] DAILY D-DIMER QUANTITATIVE [COAG] DAILY FERRITIN [CHEM] DAILY HEPATIC FUNCTION PANEL,HFP [CHEM] DAILY PROCALCITONIN [REF] DAILY - Plan Plan:: 39-year-old with history of bipolar disorder, morbid obesity, diabetes, asthma. The patient developed nausea, vomiting around 06 February. Tested positive for Covid. Later the patient came to the emergency room on 11 February. Was given steroid and azithromycin. On the day of this admission the patient presented with increasing shortness of breath. He was noted to have oxygen saturation of 80% on room air at home. She says she had fever up to 101.2, continue nausea, diarrhea. Eating makes the nausea worse. Has chest pain with deep breaths. Acute hypoxemic respiratory failure secondary to Covid 19 pneumonia hypoxemia 80% on RA 02/14 at home per ems Supplement oxygen as needed now off oxygen Covid 19 pneumonia symptoms started on 02/06 Positive covid 19 screen on 02/06 GI and pulmonary symptoms associated with hypoxemia 80% on RA 02/14 at home per ems LFT, Renal fx. Is good treat with Remdesivir 02/15- Dexamethasone 02/15- Plasma 02/15 evaluate for concurrent bacterial infections pending pro-calcitonin levels In the meantime hold Abx Ddimer was high on admission - improved - continue DVT prophylaxis with SQ Lovenox bid Diabetes Continue Lantus Supplemental insulin and hypoglycemia treatment as needed Hypertension Continue Norvasc, Lisinopril Hyponatremia resolved will follow Dyslipidemia Hold statin while on remdesivir Bipolar disorder Continue Seroquel, topamax
[2020-02-17] MEDS: Insulin Glarg,Human.Rec.Analog 100 Unit/ML SUBCUT SCH (23:18)
[2020-02-17] MEDS: QUEtiapine 100 MG Tab PO SCH (23:26)
[2020-02-18] MEDS: Formoterol/Mometasone 200-5 MCG 8.8 GM Inhaler IH SCH (06:34)
[2020-02-18] MEDS: Omeprazole 20 MG Cap.CR PO SCH (06:34)
[2020-02-18 07:24] LABS: ANION GAP 13.1 mEq/L (7-13); CHLORIDE,CL 102 mmol/L (98-107); SODIUM,NA 137 mmol/L (136-145)
[2020-02-18] MEDS: Dexamethasone 4 MG/ML SDV IVPUSH SCH (09:37)
[2020-02-18] MEDS: Enoxaparin 40 MG/0.4 ML Syringe SUBCUT SCH (09:37)
[2020-02-18] MEDS: Topiramate 25 MG Tab PO SCH (09:38)
[2020-02-18] MEDS: amLODIPine 5 MG Tab PO SCH (09:38)
[2020-02-18] MEDS: Multivitamins, Therapeutic with Minerals Tab PO SCH (09:38)
[2020-02-18] MEDS: Insulin Lispro 100 Units/ML 3 ML Vial SUBCUT SCH (09:41)
[2020-02-18] MEDS: Lisinopril 20 MG Tab PO SCH (09:45)
--- NOTE | 2020-02-18 10:28 | PCM.DCSUM1 ---
Discharge Summary - Hospital Course Free Text/Narrative:: 39-year-old with history of bipolar disorder, morbid obesity, diabetes, asthma. The patient developed nausea, vomiting around 06 February. Tested positive for Covid. Later the patient came to the emergency room on 11 February. Was given steroid and azithromycin. On the day of this admission the patient presented with increasing shortness of breath. He was noted to have oxygen saturation of 80% on room air at home. She says she had fever up to 101.2, continue nausea, diarrhea. Eating makes the nausea worse. Has chest pain with deep breaths. admitted for COVID-19 pneumonia - Discharge Data Discharge Date: 02/18/20 Discharge Disposition: Home, Self-Care 01 Condition: Good - Referral to Home Health Primary Care Physician: Cayetano Rose NP - Patient Instructions Diet: Heart Healthy Diet Activity: As Tolerated Driving: Do Not Drive Showering/Bathing: August Shower Notify Provider of: Fever, Nausea and/or Vomiting Other/Special Instructions: pt was admitted with hypoxia secondary to COVID-19 pneumia, has received Remdesivir and Dexamathasone as well as Convalacent plasma. she will go home with Dexamathsone for 7 more days course. She will follow with PMD in this week ( week of 02/20/20) - Discharge Plan *PRESCRIPTION DRUG MONITORING PROGRAM REVIEWED*: No *COPY OF PRESCRIPTION DRUG MONITORING REPORT IN PATIENT JUSTIN: No Prescriptions/Med Rec: dexAMETHasone [Dexamethasone] 6 mg PO DAILY #21 tab Home Medications: Home Meds Albuterol Sulfate 2.5 mg IH Q4H PRN 11/28/18 [History] Albuterol [Proventil HFA] 2 puff INH Q4H PRN 11/28/18 [History] Cetirizine [ZyrTEC] 10 mg PO DAILY 11/28/18 [History] Cyanocobalamin (Vitamin B-12) [Vitamin B-12] 1,000 mcg PO .WEEKLY 11/28/18 [History] EPINEPHrine [Epipen] 0.3 mg IM ASDIRECTED PRN 11/28/18 [History] Fluticasone Propion/Salmeterol [Fluticasone-Salmeterol 250-50] 1 each IH DAILY 11/28/18 [History] Fluticasone Propionate [Flonase] 1 - 2 spray NASBOTH BID 11/28/18 [History] Lisinopril 40 mg PO DAILY 11/28/18 [History] Omeprazole 20 mg PO DAILY 11/28/18 [History] Ondansetron [Zofran ODT] 4 mg PO Q8H PRN 11/28/18 [History] Orphenadrine [Norflex] 100 mg PO BID PRN 11/28/18 [History] Prazosin HCl [Prazosin] 4 mg PO BEDTIME 11/28/18 [History] QUEtiapine [SEROquel] 150 mg PO BEDTIME 11/28/18 [History] Sennosides/Docusate Sodium [Senna Plus Tablet] 1 each PO DAILY 11/28/18 [History] Solifenacin Succinate [Vesicare] 10 mg PO DAILY 11/28/18 [History] Vitamin D3 87147 Units Capsule 50,000 units PO DAILY 11/28/18 [History] amLODIPine Besylate [Amlodipine Besylate] 10 mg PO DAILY 11/28/18 [History] atorvaSTATin [Lipitor] 10 mg PO DAILY 11/28/18 [History] Multivitamin with Minerals [Multivitamins with Minerals] 1 tab PO DAILY 12/03/18 [History] Cranberry Fruit [Cranberry] 500 mg PO BID 12/07/18 [History] Insulin Aspart [NovoLOG] 20 unit SQ ASDIRECTED 01/18/19 [History] Insulin Glarg,Human.Rec.Analog [Lantus] 76 unit SUBCUT ASDIRECTED 01/18/19 [History] Topiramate [Topamax] 50 mg PO BID 01/18/19 [History] Mupirocin Oint [Bactroban Oint] 22 gm TP BID PRN 02/07/20 [History] dexAMETHasone [Dexamethasone] 6 mg PO DAILY #21 tab 02/18/20 [Rx] Oxygen Therapy Mode: Room Air Referrals: Cayetano Rose NP [Primary Care Provider] - - Discharge Summary/Plan Comment DC Time >30 min.: Yes Discharge Summary/Plan Comment: This is a 39 Y/O Morbidly obese Female admitted with acute Hypoxia secondary to Covid 19 Pneumonia, she is doing well and will be going home today 1. Acute hypoxemic respiratory failure secondary to Covid 19 pneumonia - Oxygen was 80% on RA 02/14 and now off oxygen 2. Covid 19 pneumonia symptoms started on 02/06 Positive covid 19 screen on 02/06 GI and pulmonary symptoms associated with hypoxemia 80% on RA 02/14 at home per ems LFT, Renal fx. Is good treated with Remdesivir 02/15- Dexamethasone 02/15- and will complete 10 days course received Plasma 02/15 Ddimer was high on admission - improved - continue DVT prophylaxis with SQ Lovenox bid Diabetes: Continue Lantus Supplemental insulin and hypoglycemia treatment as needed Hypertension Continue Norvasc, Lisinopril Dyslipidemia Statin was on while on remdesivir, will not need and will resume statin Bipolar disorder Continue Seroquel, topamax Follow up: Will be follwed with PMD in 1 week after the dischsrge - General Info Date of Service: 02/18/20 Admission Dx/Problem (Free Text: Admission Diagnosis/Problem Admission Diagnosis/Problem COVID 19 Pneumonia Subjective Update: She is Off oxygen. Continues to have moderate, dry cough. Associated with sharp pain when breathing in. No fever. No diarrhea, appetite is good and will be going home today. Functional Status: Reports: Pain Controlled, Tolerating Diet, Ambulating, Urinating - Review of Systems General: Reports: Weakness. Denies: Fever, Malaise, Chills HEENT: Denies: Dysphasia, Post Nasal Drip, Visual Changes Pulmonary: Reports: Cough (occasional). Denies: Shortness of Breath, Wheezing Cardiovascular: Denies: Chest Pain, Edema, Lightheadedness Gastrointestinal: Denies: Abdominal Pain, Diarrhea, Difficulty Swallowing, Nausea, Vomiting Genitourinary: Denies: Dysuria, Frequency, Burning, Flank Pain Musculoskeletal: Denies: Neck Pain, Joint Pain Skin: Denies: Cyanosis, Jaundice, Dryness, Bruising, Pruritis, Rash Neurological: Denies: Confusion, Numbness, Tremors Psychiatric: Denies: Confusion, Anxiety - Patient Data Vitals - Most Recent: Last Vital Signs Temp 36.3 C 02/18/20 07:44 Pulse 58 L 02/18/20 07:44 Resp 20 02/18/20 07:44 BP 131/62 02/18/20 09:45 Pulse Ox 93 L 02/18/20 07:44 Weight - Most Recent: 141.974 kg I&O - Last 24 hours: Intake & Output 11/02/18/20 02/18/20 22:59 06:59 14:59 Intake Total 600 Balance 600 Lab Results - Last 24 hrs: Laboratory Results - last 24 hr 02/17/20 02/17/20 02/17/20 Range/Units 05:40 11:19 16:18 WBC (5.0-10.0) 10^3/uL RBC (4.2-5.4) 10^6/uL Hgb (12.0-16.0) g/dL Hct (37.0-47.0) % MCV (80-100) fL MCH (27.0-34.0) pg MCHC (33.0-35.0) g/dL Plt Count (150-450) 10^3/uL Neut % (Auto) (42.2-75.2) % Lymph % (Auto) (20.5-50.1) % Walsh % (Auto) (2-8) % Eos % (Auto) (1.0-3.0) % Baso % (Auto) (0.0-1.0) % D-Dimer, Quantitative (0-400) ng/mL Sodium (136-145) mmol/L Potassium (3.5-5.1) mmol/L Chloride (98-107) mmol/L Carbon Dioxide (21-32) mmol/L Anion Gap (7-13) mEq/L BUN (7-18) mg/dL Creatinine (0.55-1.02) mg/dL Est Cr Clr Drug Dosing mL/min Estimated GFR (MDRD) Glucose (74-99) mg/dL POC Glucose 202 H 241 H (70-105) mg/dl Calcium (8.5-10.1) mg/dL Ferritin (8-252) mg/mL Total Bilirubin (0.2-1.0) mg/dL Direct Bilirubin (0.0-0.2) mg/dL Indirect Bilirubin AST (15-37) U/L ALT (14-59) U/L Alkaline Phosphatase (46-116) U/L C-Reactive Protein (0.0-0.9) mg/dL Total Protein (6.4-8.2) g/dL Albumin (3.4-5.0) g/dL Globulin Albumin/Globulin Ratio Procalcitonin <0.05 (<0.10) ng/mL 02/17/20 02/18/20 02/18/20 Range/Units 23:10 06:00 06:00 WBC 7.6 (5.0-10.0) 10^3/uL RBC 4.16 L (4.2-5.4) 10^6/uL Hgb 12.2 (12.0-16.0) g/dL Hct 36.0 L (37.0-47.0) % MCV 86.5 (80-100) fL MCH 29.3 (27.0-34.0) pg MCHC 33.9 (33.0-35.0) g/dL Plt Count 258 (150-450) 10^3/uL Neut % (Auto) 59.1 (42.2-75.2) % Lymph % (Auto) 35.6 (20.5-50.1) % Walsh % (Auto) 5.3 (2-8) % Eos % (Auto) 0.0 L (1.0-3.0) % Baso % (Auto) 0.0 (0.0-1.0) % D-Dimer, Quantitative 193 (0-400) ng/mL Sodium (136-145) mmol/L Potassium (3.5-5.1) mmol/L Chloride (98-107) mmol/L Carbon Dioxide (21-32) mmol/L Anion Gap (7-13) mEq/L BUN (7-18) mg/dL Creatinine (0.55-1.02) mg/dL Est Cr Clr Drug Dosing mL/min Estimated GFR (MDRD) Glucose (74-99) mg/dL POC Glucose 217 H (70-105) mg/dl Calcium (8.5-10.1) mg/dL Ferritin (8-252) mg/mL Total Bilirubin (0.2-1.0) mg/dL Direct Bilirubin (0.0-0.2) mg/dL Indirect Bilirubin AST (15-37) U/L ALT (14-59) U/L Alkaline Phosphatase (46-116) U/L C-Reactive Protein (0.0-0.9) mg/dL Total Protein (6.4-8.2) g/dL Albumin (3.4-5.0) g/dL Globulin Albumin/Globulin Ratio Procalcitonin (<0.10) ng/mL 02/18/20 02/18/20 02/18/20 Range/Units 06:00 06:00 07:41 WBC (5.0-10.0) 10^3/uL RBC (4.2-5.4) 10^6/uL Hgb (12.0-16.0) g/dL Hct (37.0-47.0) % MCV (80-100) fL MCH (27.0-34.0) pg MCHC (33.0-35.0) g/dL Plt Count (150-450) 10^3/uL Neut % (Auto) (42.2-75.2) % Lymph % (Auto) (20.5-50.1) % Walsh % (Auto) (2-8) % Eos % (Auto) (1.0-3.0) % Baso % (Auto) (0.0-1.0) % D-Dimer, Quantitative (0-400) ng/mL Sodium 137 (136-145) mmol/L Potassium 3.1 L (3.5-5.1) mmol/L Chloride 102 (98-107) mmol/L Carbon Dioxide 25 (21-32) mmol/L Anion Gap 13.1 H (7-13) mEq/L BUN 16 (7-18) mg/dL Creatinine 0.81 (0.55-1.02) mg/dL Est Cr Clr Drug Dosing 71.76 mL/min Estimated GFR (MDRD) > 60 Glucose 199 H (74-99) mg/dL POC Glucose 203 H (70-105) mg/dl Calcium 8.0 L (8.5-10.1) mg/dL Ferritin 179 (8-252) mg/mL Total Bilirubin 0.2 (0.2-1.0) mg/dL Direct Bilirubin 0.1 (0.0-0.2) mg/dL Indirect Bilirubin 0.1 AST 25 (15-37) U/L ALT 49 (14-59) U/L Alkaline Phosphatase 75 (46-116) U/L C-Reactive Protein 0.8 (0.0-0.9) mg/dL Total Protein 6.2 L (6.4-8.2) g/dL Albumin 2.7 L (3.4-5.0) g/dL Globulin 3.5 Albumin/Globulin Ratio 0.77 Procalcitonin (<0.10) ng/mL ZULMA Results - Last 24 hrs: Microbiology 02/16/20 01:01 Aerobic Blood Culture - Preliminary Blood - Arm, Right NO GROWTH AFTER 2 DAYS Anaerobic Blood Culture - Preliminary NO GROWTH AFTER 2 DAYS 02/15/20 22:16 Aerobic Blood Culture - Preliminary Blood - Venous - Iv Start NO GROWTH AFTER 2 DAYS Anaerobic Blood Culture - Final Med Orders - Current: Current Medications Albuterol (Proventil Hfa) 0 gm INH Q4HR PRN PRN Reason: Wheezing Amlodipine Besylate (Norvasc) 10 mg PO DAILY [facility] Last Admin: 02/18/20 09:38 Dose: 10 mg Documented by: Dexamethasone (Decadron) 6 mg IVPUSH DAILY [facility] Last Admin: 02/18/20 09:37 Dose: 6 mg Documented by: Dextrose/Water (Dextrose 50% In Water) 25 ml IVPUSH Q1H PRN PRN Reason: blood sugar <70 Dextrose/Water (Dextrose 50% In Water) 50 ml IV ASDIRECTED PRN PRN Reason: Hypoglycemia Dextrose/Water (Dextrose 50% In Water) 50 ml IV ASDIRECTED PRN PRN Reason: Hypoglycemia Enoxaparin Sodium (Lovenox) 40 mg SUBCUT BID [facility] Last Admin: 02/18/20 09:37 Dose: 40 mg Documented by: Glucagon (Glucagen) 1 mg IM ASDIRECTED PRN PRN Reason: Hypoglycemia Glucagon (Glucagen) 1 mg IM ASDIRECTED PRN PRN Reason: Hypoglycemia Remdesivir 100 mg/ Sodium (Chloride) 230 mls @ 230 mls/hr IV Q24H [facility] Stop: 02/20/20 09:01 Last Admin: 02/18/20 09:58 Dose: 230 mls/hr Documented by: Ibuprofen (Motrin) 400 mg PO Q6H PRN PRN Reason: Pain (mild to mod) Insulin Glargine (Lantus) 40 unit SUBCUT BEDTIME [facility] Last Admin: 02/17/20 23:18 Dose: 40 units Documented by: Insulin Human Lispro (Humalog) 0 unit SUBCUT QIDACANDBED [facility]; Protocol Last Admin: 02/18/20 09:41 Dose: 2 units Documented by: Lisinopril (Prinivil) 40 mg PO DAILY [facility] Last Admin: 11/14/20 09:45 Dose: 40 mg Documented by: Mometasone Furoate/Formoterol Fumar (Dulera 200-5 Mcg) 2 puff IH BIDRT [facility] Last Admin: 02/18/20 06:34 Dose: 2 puff Documented by: Multivitamins/Minerals (Vitamins And Minerals) 1 tab PO DAILY [facility] Last Admin: 02/18/20 09:38 Dose: 1 tab Documented by: Prazosin 2 Mg Caps 0 mg PO BEDTIME [facility] Last Admin: 02/17/20 23:32 Dose: 4 mg Documented by: Omeprazole (Omeprazole) 20 mg PO ACBRK [facility] Last Admin: 02/18/20 06:34 Dose: 20 mg Documented by: Ondansetron HCl (Zofran Odt) 4 mg PO Q6H PRN PRN Reason: nausea, able to take PO Ondansetron HCl (Zofran) 4 mg IVPUSH Q6H PRN PRN Reason: Nausea/Vomiting Oxycodone HCl (Oxycodone) 5 mg PO Q4H PRN PRN Reason: Pain (severe) Quetiapine Fumarate (Seroquel) 150 mg PO BEDTIME [facility] Last Admin: 02/17/20 23:26 Dose: 150 mg Documented by: Sodium Chloride (Saline Flush) 10 ml FLUSH ASDIRECTED PRN PRN Reason: Keep Vein Open Last Admin: 02/17/20 23:35 Dose: 10 ml Documented by: Temazepam (Restoril) 15 mg PO BEDTIME PRN PRN Reason: Sleep Topiramate (Topamax) 50 mg PO BID [facility] Last Admin: 02/18/20 09:38 Dose: 50 mg Documented by: Discontinued Medications Dexamethasone (Decadron) 6 mg IVPUSH ONETIME ONE Stop: 02/15/20 22:21 Last Admin: 02/15/20 22:35 Dose: 6 mg Documented by: Dexamethasone (Decadron) Confirm Administered Dose 8 mg .ROUTE .STK-MED ONE Stop: 02/15/20 22:20 Last Admin: 02/15/20 22:22 Dose: Not Given Documented by: Guaifenesin/Phenylephrine HCl (Robitussin Dm) 10 ml PO ONETIME ONE Stop: 02/16/20 02:58 Last Admin: 02/16/20 03:20 Dose: 10 ml Documented by: Sodium Chloride (Normal Saline) 1,000 mls @ 50 mls/hr IV .BOLUS ONE Stop: 02/16/20 18:21 Last Admin: 02/15/20 22:35 Dose: 50 mls/hr Documented by: Remdesivir 200 mg/ Sodium (Chloride) 210 mls @ 210 mls/hr IV ONETIME ONE Stop: 02/16/20 00:40 Last Admin: 02/16/20 02:23 Dose: 210 mls/hr Documented by: Sterile Water (Sterile Water For Injection) Confirm Administered Dose 40 mls @ as directed .ROUTE .STK-MED ONE Stop: 02/16/20 01:53 Last Admin: 02/16/20 02:35 Dose: 40 mls/hr Documented by: Magnesium Oxide (Magnesium Oxide) 500 mg PO ONETIME ONE Stop: 02/16/20 01:01 Last Admin: 02/16/20 02:24 Dose: 500 mg Documented by: - Exam Quality Assessment: Reports: DVT Prophylaxis. Denies: Supplemental Oxygen, Urine Catheter General: Reports: Alert, Oriented, Cooperative, No Acute Distress HEENT: Reports: Pupils Equal, Pupils Reactive, EOMI Neck: Reports: Supple Lungs: Reports: Clear to Auscultation, Normal Respiratory Effort Cardiovascular: Reports: Regular Rate, Regular Rhythm, No Murmurs GI/Abdominal Exam: Normal Bowel Sounds. No: Guarding, Rigid, Rebound, Tender (Female) Exam: Deferred Rectal (Female) Exam: Deferred Extremities: Normal Inspection, No Pedal Edema Skin: Reports: Warm, Dry, Intact Neurological: Reports: No New Focal Deficit Psy/Mental Status: Reports: Alert, Normal Affect, Normal Mood
== END 2020-02-18 11:35 | disposition home or self-care (01) | DRG 177 ==
LOC: DL.ED 21:52 → DL.MS 23:47
PROVIDERS: ADMIT Internal Medicine; ATTEND Internal Medicine
PROC: XW13325 Transfusion of Convalescent Plasma (Nonautologous) into Peripheral Vein, Percutaneous Approach, New Technology Group 5 (ICD-10-PCS; 2020-02-15)
PROC: 8E0ZXY6 Isolation (ICD-10-PCS; 2020-02-15)
PROC: XW033E5 Introduction of Remdesivir Anti-infective into Peripheral Vein, Percutaneous Approach, New Technology Group 5 (ICD-10-PCS; principal; 2020-02-16)
DX: U07.1 COVID-19 (principal); J12.89 Other viral pneumonia; R09.02 Hypoxemia; J96.01 Acute respiratory failure with hypoxia; E87.1 Hypo-osmolality and hyponatremia; Z68.43 Body mass index [BMI] 50.0-59.9, adult; F31.9 Bipolar disorder, unspecified; F32.9 Major depressive disorder, single episode, unspecified; F41.9 Anxiety disorder, unspecified; E66.01 Morbid (severe) obesity due to excess calories; E66.9 Obesity, unspecified; E78.00 Pure hypercholesterolemia, unspecified; K21.9 Gastro-esophageal reflux disease without esophagitis; G43.909 Migraine, unspecified, not intractable, without status migrainosus; F43.10 Post-traumatic stress disorder, unspecified; E11.9 Type 2 diabetes mellitus without complications; J45.909 Unspecified asthma, uncomplicated; I10 Essential (primary) hypertension; E78.5 Hyperlipidemia, unspecified; Z88.6 Allergy status to analgesic agent; Z88.8 Allergy status to other drugs, medicaments and biological substances; Z79.899 Other long term (current) drug therapy; Z79.4 Long term (current) use of insulin; Z88.0 Allergy status to penicillin; Z88.2 Allergy status to sulfonamides; Z91.030 Bee allergy status; Z90.49 Acquired absence of other specified parts of digestive tract
CPT/HCPCS: 36415 ×2; 71250; 80053; 82150; 82962; 83605; 83690; 83735; 84703; 85025; 85379; 87040; J1100; J7030; 36430; 80048; 80076; 82728; 84100; 84145; 86140; 86900; 86901; 94760; 96374; 99284; 99285-25; A9270-GY; J1650; J1815-GY; J7050; P9017